=== PATIENT | male | born 1940 | race African-American/Black ===

== ENCOUNTER 2018-01-01 15:08 | Outpatient (CLI) | payer MEDICARE, BC | END 2018-01-01 15:09 | disposition home or self-care (01) | LOC: BICRAD 15:08 | PROVIDERS: ATTEND Physician Assistant | DX: J90 Pleural effusion, not elsewhere classified (principal) | CPT/HCPCS: 71046 ==

== ENCOUNTER 2018-10-18 09:54 | Outpatient (CLI) | payer MEDICARE, BC ==
--- NOTE | 2018-10-18 11:03 | RAD ---
THREE VIEWS LEFT WRIST: History: Fall one week ago with left wrist pain. FINDINGS: Three views of the left wrist shows no evidence of acute fracture or dislocation. No soft tissue swel ling is seen. No degenerative changes are present. IMPRESSION: Unremarkable exam. POS: [facility]
--- NOTE | 2018-10-18 11:05 | RAD ---
TWO VIEWS LEFT FOREARM: Comparison: None. History: Fall one week ago with left arm pain. FINDINGS: Two views of the left forearm shows no evidence of acute fracture or dislocation. No soft tissue swel ling is seen. No radiopaque foreign body is seen. IMPRESSION: Unremarkable exam. POS: [facility]
--- NOTE | 2018-10-18 11:06 | RAD ---
THREE VIEWS LEFT HAND: Comparison: None. History: Fall one week ago with left hand pain. FINDINGS: Three views of the left hand shows no evidence of acute fracture or dislocation. Moderate diffuse sof t tissue swelling is seen. Degenerative changes are seen in the interphalangeal joints of the fingers . 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 POS: [facility]
== END 2018-10-18 09:55 | disposition home or self-care (01) ==
LOC: BICRAD 09:54
PROVIDERS: ATTEND Internal Medicine
DX: M79.642 Pain in left hand (principal); M19.042 Primary osteoarthritis, left hand; M25.442 Effusion, left hand; Z91.81 History of falling

== ENCOUNTER 2018-11-08 11:11 | Day surgery (SDC) | payer MEDICARE, BC ==
[2018-11-07 16:36] VITALS: BMI 25.1
[2018-11-08] MEDS ORDERED: PROPOFOL 200 MG/20 ML VIAL ONE (17:01)
[2018-11-08] MEDS ORDERED: Lidocaine 1% PF 5 ML VIAL ONE (17:01)
--- NOTE | 2018-11-08 20:37 | OP ---
DATE OF PROCEDURE: 11/08/2018 PRIMARY CARE PHYSICIAN: Ping Poe MD PROCEDURE: Colonoscopy with snare polypectomy and biopsy. PRE-PROCEDURE DIAGNOSES: 1. Colon screening. 2. History of pacemaker insertion. 3. History of ureteral cancer and non-Hodgkin's lymphoma. POSTPROCEDURE DIAGNOSES: 1. Exam to cecum; suboptimal bowel preparation. 2. Diffusely tortuous colon. 3. Suti-co-ktkivqog sigmoid diverticulosis. 4. 5 to 6 mm sessile polyp in the distal transverse colon, removed with cold snare technique. 5. Small residual transverse colon polyp, removed by biopsy forceps from the polypectomy site. 6. Gzodu-no-ufpzwcvg internal hemorrhoids, not actively bleeding. 7. Otherwise normal colonoscopy. DESCRIPTION OF PROCEDURE: Written informed consent was obtained. The patient was brought to the endoscopy suite. Total intravenous anesthesia was provided by Dr. Galileo Gambino and associates. The patient was placed in the left lateral decubitus position. A digital rectal exam was performed that was unremarkable. A Pentax video colonoscope was inserted through the anal canal and advanced under direct visualization to the cecum. Position in the cecum was verified by identification of the cecal strap and ileocecal valve. The quality of the bowel preparation was unsatisfactory. Thick liquid stool with multiple fecal debris was noted throughout the colon and pooled in multiple areas of the colon. Using a copious lavage with sterile water, fair clearance was achieved with improved visualization. Frequent diverticular orifices were noted in the sigmoid colon. There was no evidence of infection or hemorrhage from the diverticula. A sessile polyp in the transverse colon was removed by cold snare technique. Due to its somewhat difficult location, the small portion of the polyp remained and had to be removed with cold biopsy forceps from the polypectomy site. No other synchronous polyps were identified. The retroflex exam in the rectum demonstrated small edematous internal hemorrhoids that were not actively bleeding. The colon was decompressed as the colonoscope was removed from the patient. He was transferred to the day stay surgery area for postprocedure monitoring. There were no immediate complications. RECOMMENDATIONS: 1. Await pathology results. 2. Ask the patient to call me in one week for pathology results. 3. Pending pathology results, may recommend repeating a colonoscopy in 5 years. 4. High-fiber, low-fat diet. 5. Follow up in GI Clinic as needed. Job ID: [id number]
== END 2018-11-08 16:00 | disposition home or self-care (01) ==
LOC: SDC 11:11
PROVIDERS: ATTEND Internal Medicine Gastroenterology
PROC: 0DBL8ZX Excision of Transverse Colon, Via Natural or Artificial Opening Endoscopic, Diagnostic (ICD-10-PCS; principal; 2018-11-08)
DX: Z12.11 Encounter for screening for malignant neoplasm of colon (principal); D12.3 Benign neoplasm of transverse colon; K57.31 Diverticulosis of large intestine without perforation or abscess with bleeding; K64.8 Other hemorrhoids; K63.89 Other specified diseases of intestine; I48.91 Unspecified atrial fibrillation; E78.00 Pure hypercholesterolemia, unspecified; D64.9 Anemia, unspecified; K59.00 Constipation, unspecified; Z86.010 Personal history of colon polyps; Z85.528 Personal history of other malignant neoplasm of kidney; Z85.72 Personal history of non-Hodgkin lymphomas; Z80.0 Family history of malignant neoplasm of digestive organs; Z79.01 Long term (current) use of anticoagulants; Z79.899 Other long term (current) drug therapy; Z90.5 Acquired absence of kidney; Z95.810 Presence of automatic (implantable) cardiac defibrillator
CPT/HCPCS: 88305; J2001; J2704

== ENCOUNTER 2019-11-08 21:22 | Inpatient (IN) | payer MEDICARE, BC ==
[2019-11-08] MEDS ORDERED: Morphine 4 MG/ML VIAL ONE ×2 (21:52→22:47)
[2019-11-08] MEDS ORDERED: Ondansetron PF 4 MG/2 ML Vial ONE ×2 (21:52→22:47)
[2019-11-08 22:40] LABS: Hemoglobin 10.7 g/dL (14.0-18.0); Mean Corpuscular HGB CONC 31.7 g/dL (32.0-36.0); Mean Corpuscular Hemoglobin 33.2 pg (27.0-31.0); RBC Distribution Width 12.2 % (11.5-14.5); Red Blood Cell (RBC) Count 3.21 mill/uL (4.70-6.10)
[2019-11-08 22:44] LABS: #Basophils 0.1 thou/uL (0.0-0.2); #Eosinphils 0.1 thou/uL (0.0-0.7); #Lymphocytes 0.6 thou/uL (1.20-3.40); #Monocytes 0.9 thou/uL (0.11-0.59); #Neutrophils 10.3 thou/uL (1.40-6.50); %Basophils 0.4 % (0.0-1.0); %Eosinophils 1.2 % (0.0-10.0); %Monocytes 7.2 % (0.0-10.0); %Neutrophils 86.2 % (42.0-75.0); MDiff Complete? YES; Macrocytosis SLIGHT = 6-15 cells (100X) (0-5/hpf); Mean Platelet Volume 7.6 fL (7.4-10.4); Platelet Count 234 thou/uL (130-400)
[2019-11-08 22:50] LABS: ALT (SGPT) 21 U/L (8-55); AST (SGOT) 28 U/L (5-34); Albumin 3.9 g/dL (3.4-4.8); Alkaline Phosphatase 89 U/L (40-110); Anion Gap 18 mmol/L (10-20); BUN (Urea Nitrogen) 42 mg/dL (8.4-25.7); Bilirubin, Total 0.4 mg/dL (0.2-1.2); Calc. Creatinine Clearance 0 mL/min (70-130); Calcium 9.1 mg/dL (7.8-10.44); Carbon Dioxide 18 mmol/L (23-31); Chloride 106 mmol/L (98-107); Estimated GFR-MDRD 28; Globulin 3.5 g/dL (2.4-3.5); Glucose 143 mg/dL (83-110); Lipase 43 U/L (8-78); Potassium 5.2 mmol/L (3.5-5.1); Protein, Total 7.4 g/dL (5.8-8.1); Sodium 137 mmol/L (136-145)
--- NOTE | 2019-11-08 23:33 | CT ---
CT OF THE ABDOMEN AND PELVIS WITHOUT IV CONTRAST INDICATION: Abdominal Pain COMPARISON: CT of the chest, abdomen and pelvis without contrast dated August 26, 2016 FINDINGS: This examination is limited for the evaluation of solid organs and vascular structures due to the lac k of intravenous contrast. ABDOMEN: Lung bases: There is a persistent moderate left and small right pleural effusion. There is atelectasi s within the lingula and left lower lobe. Liver: No focal lesion. Gallbladder: Surgically absent Pancreas: Normal. Adrenal glands: Normal. Spleen: Normal. 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 There is been interval development of mode rate right hydronephrosis and right-sided hydroureter that transitions at the right ureter-neobladder anastomosis within the lower right mid abdomen. The neobladder exits via a right lo wer quadrant stoma. Vasculature: There are moderate vascular calcifications seen involving the visualized vasculature. 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 Lymph nodes:No lymphadenopathy. Free fluid in abdomen:No free fluid is evident. PELVIS: Small and large bowel: There is an anterior midline abdominal wall hernia containing a nonobstructed loop of sigmoid colon. There are scattered colonic diverticulosis. There is a small amount anastomosis seen, left of midline in the mid abdomen. Appendix:Surgically absent Bladder: Surgically absent Rectal and perirectal soft tissues:Normal. Reproductive structures: Surgically absent Free fluid in pelvis: No free fluid is evident. Lymphadenopathy pelvis: No lymphadenopathy is evident. Osseous structures: No acute osseous abnormality. No destructive osteolytic or osteoblastic lesion i s identified. There is scattered degenerative and osteoarthritic changes. There is stable superior endplate compression deformity of L1. There is been interval compression abnormality of L2 with assoc iated vertebral plasty change. Soft tissues:Normal. IMPRESSION: 1. Interval development of moderate right hydronephrosis and hydroureter that transitions at the uret eral-neobladder anastomosis within the lower right mid abdomen. The neobladder is decompressed and exits via a right lower quadrant stoma. 2. New anterior midline upper abdominal wall hernia containing unobstructed loop of sigmoid colon. 3. 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 4. Stable post procedural change of a cholecystectomy, appendectomy, cholecystectomy and left nephrec alisa. 5. Interval development of a compression abnormality with vertebroplasty change at L2. Stable elaina delmar abnormality at L1.
[2019-11-09] MEDS ORDERED: Morphine 4 MG/ML VIAL SLOW IVP PRN ×2 (01:06→01:07)
[2019-11-09] MEDS ORDERED: Ondansetron ODT 4 MG TAB SL PRN (01:07)
[2019-11-09] MEDS ORDERED: Acetaminophen 325 MG TAB PO PRN (01:07)
[2019-11-09] MEDS ORDERED: Ondansetron PF 4 MG/2 ML Vial IVP PRN (01:07)
[2019-11-09] MEDS ORDERED: HYDROcodone/Acetaminophen 5/325 mg Tablet PO PRN ×2 (01:07)
[2019-11-09 01:18] LABS: Bacteria/HPF 4+ HPF (None Seen); Bilirubin Negative (Negative); Blood, Urine Trace (Negative); Clarity Extra Turbid (Clear); Glucose, Urine (Dipstick) Normal (Negative); Leukocyte 250 Leu/uL (Negative); Nitrite Negative (Negative); Protein, Urine (Dipstick) 30 mg/dL (Neg-Trace); Squamous Epithelial 0-3 HPF (0-3); WBC/HPF 21-50 HPF (0-3)
[2019-11-09 03:38] VITALS: BMI 23.8
[2019-11-09] MEDS ORDERED: Prevnar 13-Val Conj/PF 0.5 ML SYRINGE IM ONE (09:00)
[2019-11-09] MEDS ORDERED: FLU VACC TS2019-20(65YR UP)/PF 180 MCG/0.5 ML SYRINGE IM ONE (09:00)
[2019-11-09 15:39] VITALS: BP 121/71; TEMP 98.6
--- NOTE | 2019-11-09 16:59 | CON ---
DATE OF CONSULTATION: 11/09/2019 REASON FOR CONSULTATION: Incarcerated ventral hernia. HISTORY OF PRESENT ILLNESS: This is an 79-year-old male with a history of ureter cancer, who is status post radical nephroureterectomy with creation of neobladder and urinary stoma. He presented to the emergency department with abdominal pain and complaints of a firm mass in the supraumbilical area. He denies any nausea, vomiting, obstipation, or constipation. He was placed on observation overnight. The following morning, he was feeling much better. The mass had resolved, as had his abdominal pain. PAST MEDICAL HISTORY: 1. Ureter cancer. 2. Atrial fibrillation. 3. Congestive heart failure. 4. GERD. PAST SURGICAL HISTORY: 1. Radical nephroureterectomy with neobladder and urinary stoma. 2. Appendectomy. 3. Left Achilles tendon repair. 4. Cholecystectomy. 5. Back surgery. 6. Left knee surgery. SOCIAL HISTORY: Endorses occasional alcohol usage. Denies tobacco or drug use. ALLERGIES: NO KNOWN DRUG ALLERGIES. FAMILY HISTORY: Noncontributory. REVIEW OF SYSTEMS: A 12-point review of systems was obtained and is negative except as stated in the history of present illness. PHYSICAL EXAMINATION: VITAL SIGNS: Temperature 98.2, heart rate 75, respiratory rate 16, and blood pressure 125/71. GENERAL: Alert and oriented, no acute distress. HEENT: Normocephalic. No jaundice or icterus. CHEST: Clear to auscultation. CARDIOVASCULAR: Irregularly irregular with pacemaker in place. ABDOMEN: Soft, nondistended, nontender. 2 cm reducible incisional hernia in the supraumbilical position. Urinary ostomy viable with urine output. MUSCULOSKELETAL: Slightly reduced bulk and normal tone. INTEGUMENT: No rashes or lesions. NEURO: No focal deficits. LABORATORY ANALYSIS: Laboratory analysis reviewed and demonstrates a mild leukocytosis of 12. Also demonstrates hyperkalemia at 5.2 and elevated creatinine of 2.2. These are chronic. His urinalysis is grossly positive likely due to his urinary ostomy. IMAGING STUDIES: CT of the abdomen and pelvis demonstrates interval development of right hydronephrosis and hydroureter as well as a midline upper abdominal wall hernia containing unobstructed loop of sigmoid colon. 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 Stable postprocedural changes of cholecystectomy, appendectomy, and left nephrectomy. ASSESSMENT: An 79-year-old male with a history of ureter cancer and radical left nephroureterectomy with neobladder and urinary ostomy, now with incisional hernia. No evidence of obstruction, strangulation, or incarceration at this time. PLAN: Continue care by Medicine Service. No surgical intervention indicated for the hernia at this time. The patient was counseled that he should discuss this incisional hernia with his urologist at his next followup at [facility]. We will follow peripherally. Please call for any further questions. Job ID: [id number] MTDD
--- NOTE | 2019-11-10 06:46 | HP ---
HISTORY OF PRESENT ILLNESS: Mr. Dhillon is an 79-year-old male with a medical history of ureter cancer, status post radical nephroureterectomy with creation of neobladder and urinary stoma, who presented for abdominal pain at the site of his abdominal hernia. The patient claims that he has had this pain for at least a year ever since his surgery, but over the past 2 months, the pain has become worse especially when he has episodes of constipation. The patient states that he takes his docusate when he has constipation, but still has episodes of straining, during which he has increased abdominal pain at the site of the hernia. The patient also endorses a single episode of vomiting the day prior to presentation. In the ED, the patient was found to be in pain and there was a concern of bowel obstruction or an incarcerated hernia, so he was admitted to the surgical floor. REVIEW OF SYSTEMS: CONSTITUTIONAL: Negative for fever or chills. EYES: Negative for eye pain, discharge, or vision change. ENT: Negative for rhinorrhea or sore throat. CARDIOVASCULAR: Negative for pain or palpitations. RESPIRATORY: Negative for cough, sputum production, or shortness of breath. GASTROINTESTINAL: Positive for abdominal pain and bulging of the abdominal hernia, single episode of low volume vomiting. GENITOURINARY: Negative for dysuria, hematuria, or urinary frequency. MUSCULOSKELETAL: Negative for falls, back pain, joint pain, or neck pain. SKIN: Negative for rashes or lesions. NEUROLOGIC: Negative for headache or focal weakness. PAST MEDICAL HISTORY: 1. Atrial fibrillation. 2. Bladder cancer. 3. Ureter cancer. 4. Abdominal hernia. 5. CHF. PAST SURGICAL HISTORY: 1. Pacemaker, left upper chest. 2. Nephrectomy. 3. Ureterectomy. 4. Cholecystectomy. 5. Appendectomy. 6. Achillis tendon repair. SOCIAL HISTORY: No heavy alcohol intake. No recreational drug use. Former smoker, stopped in 2013. ALLERGIES: NO KNOWN DRUG ALLERGIES. MEDICATIONS: 1. Carvedilol. 2. Fluoxetine. 3. Calcitriol. 4. Eliquis. 5. Sodium bicarbonate. PHYSICAL EXAMINATION: VITAL SIGNS: Unremarkable except for tachypnea at around 18 breaths per minute. CONSTITUTIONAL: Afebrile. No apparent distress. Alert and oriented x3. HEENT: Head exam; atraumatic, normocephalic. Eyes exam; no conjunctival pallor, swelling, or erythema. No eye redness. ENT; no lymphadenopathy. CARDIAC: Regular rate and rhythm. No murmurs or gallops. RESPIRATORY: Clear to auscultation bilaterally. No rales or rhonchi. ABDOMEN: Left periumbilical hernia about 5 cm in diameter. No erythema. Easily reducible. No tenderness on palpation. Normal bowel sounds. No distention. No guarding. EXTREMITIES: Right lower pitting edema, which per the patient is chronic; left lower extremity has no edema. NEUROLOGIC: Cranial nerves intact. No focal weakness. PSYCHIATRIC: Alert and oriented x3. Proper mood and affect. LABORATORY AND DIAGNOSTIC DATA: Labs and imaging were reviewed. ASSESSMENT AND PLAN: Mr. Dhillon is an 79-year-old male, who presents with chronic abdominal hernia pain. 1. Abdominal hernia. The patient has had chronic hernia pain since surgery. He was evaluated by Surgery, who determined there was no indication for surgical intervention considering the hernia is easily reducible and the pain has resolved. The patient was tolerating oral intake with no additional episodes of nausea or vomiting. We will continue to monitor the patient. 2. Positive urinalysis. The patient's urine sample was taken from the ostomy bag. Urinalysis is positive, but likely due to colonization of the urinary bag rather than an infection considering lack of constitutive symptoms or costovertebral tenderness. No indication for treatment. 3. Atrial fibrillation. We will restart the patient's home medications of Coreg and apixaban. 4. Congestive heart failure. The patient is currently euvolemic other than his right lower extremity, which is inconsistent with heart failure considering it is not bilateral. We will attempt to obtain records regarding his congestive heart failure. Meanwhile, we will continue Coreg. DISPOSITION/PROPHYLAXIS: Code status, full code. DVT prophylaxis, the patient is on Eliquis for atrial fibrillation. GI prophylaxis, no indication. Job ID: [id number]
--- NOTE | 2019-11-10 15:03 | DIS ---
DATE OF ADMISSION: 11/09/2019 DATE OF DISCHARGE: 11/09/2019 HISTORY OF PRESENT ILLNESS: Mr. Dhillon is an 79-year-old male with a medical history of ureter cancer, status post radical nephroureterectomy with creation of neobladder and urinary stoma, who presented with abdominal pain at the site of his chronic abdominal hernia. The patient has been having chronic symptoms ever since surgery that worsened over the past couple of months. In the ED, there was concern regarding possible strangulation of the hernia, however, after surgical evaluation and evaluation by myself, the patient was diagnosed with a reducible nonischemic nonstrangulated hernia. The patient was supported throughout the day and significantly improved. He was discharged home without pain, hemodynamically stable, and following education regarding a bowel regimen that will prevent him from having episodes of constipation associated hernia pain. PHYSICAL EXAMINATION: VITAL SIGNS: On the day of discharge were unremarkable. GENERAL: The patient was in no apparent distress. Alert and oriented x3. CARDIAC: Regular rate and rhythm. No murmurs. No gallops. RESPIRATORY: Clear to auscultation bilaterally. No rales or rhonchi. ABDOMEN: Left periumbilical hernia about 5 cm in diameter, easily reducible. No overlying erythema. No tenderness to palpation. Normal bowel sounds. EXTREMITIES: Right lower extremity pitting edema, which is chronic per the patient. Left lower extremity has no edema. NEUROLOGIC: Cranial nerves intact. No focal weakness. PSYCHIATRIC: Alert and oriented x3. Proper mood and affect. ASSESSMENT AND PLAN: Mr. Dhillon is an 79-year-old male, who presented with chronic abdominal hernia pain. 1. Abdominal hernia. Easily reducible and no signs of strangulation. Surgery evaluated the patient and determined there was no indication for urgent surgical intervention. The patient significantly improved after being supported and after receiving supportive care, and was discharged without pain. He was extensively educated regarding a bowel regimen that would prevent hard stools and associated abdominal pain as well as straining of the abdomen. 2. Positive urinalysis. The patient's urine sample was taken from the ostomy bag. Likely colonization in the absence of associated symptoms. No indication for treatment. 3. Atrial fibrillation. The patient has been well controlled on his home medications of Coreg. Also continue the patient's apixaban. 4. Congestive heart failure. Per the patient has been diagnosed, however, no records available and the patient has been euvolemic during inpatient stay. We will continue Coreg and requests the patient to follow up with his group underwriter. Job ID: [id number]
--- NOTE | 2019-11-12 00:40 | PQF ---
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 Clinical indicators are provided on the bottom of this form for your review Can you please further clarify if Hydronephrosis is ruled in or ruled out? Hydronephrosis [ x ] Ruled in diagnosis [ x ] Continue to treat [ ] Resolved [ ] Ruled out diagnosis [ ] Cannot rule out diagnosis [ ] Other diagnosis [ ] Unable to determine In addition, please specify: Present on Admission (POA): [ ] Yes [ ] No [ ] Unable to determine For continuity of documentation, please document condition throughout progress notes and discharge summary. Thank You. CLINICAL INDICATORS - SIGNS / SYMPTOMS / LABS Consult Pg.2- CT abdomen and pelvis demonstrates interval development of right hydronephrosis and hydroureter Consult pg.2- His urinalysis is grossly positive likely due to his urinary ostomy ED provider- Hydronephrosis H and P pg.1- presented with abdominal pain RISK FACTORS s/p radical nephroureterectomy Hx of ureter cancer- H and P pg.1 Abdominal hernia- H and P pg.[address] Abdomen/Pelvis 11/[address] Santacruz IV fluids- DEC IV antibiotics- DEC (This form is maintained as a part of the permanent medical record) 2014 [employer]. All Rights Reserved [email or web address]
== END 2019-11-09 15:50 | disposition home or self-care (01) | DRG 394 ==
LOC: ERS 21:22 → SURG B 11-09 00:04
PROVIDERS: ADMIT Internal Medicine; ATTEND Internal Medicine
DX: K45.8 Other specified abdominal hernia without obstruction or gangrene (principal); N13.30 Unspecified hydronephrosis; I48.91 Unspecified atrial fibrillation; I50.9 Heart failure, unspecified; K21.9 Gastro-esophageal reflux disease without esophagitis; N18.9 Chronic kidney disease, unspecified; E87.5 Hyperkalemia; Z85.54 Personal history of malignant neoplasm of ureter; Z95.0 Presence of cardiac pacemaker; Z90.49 Acquired absence of other specified parts of digestive tract; Z79.01 Long term (current) use of anticoagulants; Z79.899 Other long term (current) drug therapy; Z87.891 Personal history of nicotine dependence; Z85.528 Personal history of other malignant neoplasm of kidney; Z85.51 Personal history of malignant neoplasm of bladder; Z93.6 Other artificial openings of urinary tract status
CPT/HCPCS: 74176; 80053; 81003; 81015; 83690; 85025; 96361; 96374; 96375; 96376; J2270; J2405

== ENCOUNTER 2020-04-17 10:21 | Inpatient (IN) | payer MEDICARE, BC, OTHER ==
[2020-04-17] MEDS ORDERED: Fentanyl 100 MCG/2 ML VIAL ONE (12:02)
--- NOTE | 2020-04-17 12:07 | CT ---
EXAM: Brain CT scan Without contrast: HISTORY: Injury from trauma COMPARISON: None FINDINGS: Some motion artifact degrading image quality. Atrophy and chronic white matter ischemic change. No focal mass or midline shift. No intra or extra-axial hemorrhage. The visualized sinuses and mastoids are clear of acute process. IMPRESSION: No mass or bleed or other significant acute intracranial process.
--- NOTE | 2020-04-17 12:09 | RAD ---
PORTABLE CHEST 1 VIEW: Date: 04/17/2020 Time: 1140 hours HISTORY: Altered mental status. FINDINGS/IMPRESSION: The heart size is borderline. A left-sided pacemaker device is present. There is pulmonary vascular c ongestion with a left pleural effusion and adjacent atelectatic change. No pneumothoraces are seen. T here are degenerative changes in the spine. POS: [facility]
--- NOTE | 2020-04-17 12:19 | CT ---
EXAM: CT Lumbar Spine WO Con DATE: 04/17/2020 11:28 AM INDICATION: Multiple falls and back pain COMPARISON: CT the abdomen and pelvis with out contrast dated November 08, 2019. FINDING: There is been interval development of a mild superior endplate compression fracture of T12. Superior endplate compression abnormalities of L1 and L2 appear similar. Vertebroplasty changes L2 similar appearing. There is diffuse osteopenia. There is moderate multilevel spondylosis. There are b ilateral pleural effusions and a stable chronic right-sided hydronephrosis. There is aneurysmal dilatation left common iliac artery measuring up to 2.4 cm just slightly more pronounced than on the prior examination, possibly related to plane of imaging. IMPRESSION: 1. Acute superior endplate compression fracture of T12 with approximately 10% loss of height. 2. Stable chronic L1 and L2 vertebral body compression abnormalities with stable vertebral plasty laurita nge at L2. 3. Bilateral pleural effusions and chronic right-sided hydronephrosis. 3. 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
[2020-04-17 12:33] LABS: Bacteria/HPF 3+ HPF (None Seen); Bilirubin Negative (Negative); Blood, Urine Negative (Negative); Clarity Clear (Clear); Glucose, Urine (Dipstick) Normal (Negative); Ketone, Urine Negative (Negative); Leukocyte 25 Leu/uL (Negative); Nitrite Negative (Negative); Protein, Urine (Dipstick) 10 mg/dL (Neg-Trace); RBC/HPF 0-3 HPF (0-3); Specific Gravity, Urine 1.019 (1.002-1.036); Squamous Epithelial None Seen HPF (0-3); Urobilinogen Normal mg/dL (Less than 2); pH, Urine 5.5 (5.0-9.0)
[2020-04-17 12:38] LABS: #Basophils 0.1 thou/uL (0.0-0.2); #Eosinphils 0.1 thou/uL (0.0-0.7); #Lymphocytes 0.9 thou/uL (1.20-3.40); #Monocytes 0.5 thou/uL (0.11-0.59); #Neutrophils 14.2 thou/uL (1.40-6.50); %Basophils 0.7 % (0.0-1.0); %Eosinophils 0.3 % (0.0-10.0); %Lymphocytes 5.9 % (21.0-51.0); %Monocytes 3.1 % (0.0-10.0); Hemoglobin 9.2 g/dL (14.0-18.0); Mean Corpuscular HGB CONC 28.7 g/dL (32.0-36.0); Mean Corpuscular Hemoglobin 31.3 pg (27.0-31.0); Mean Platelet Volume 9.8 fL (7.4-10.4); Platelet Count 144 thou/uL (130-400); RBC Distribution Width 12.7 % (11.5-14.5); Red Blood Cell (RBC) Count 2.94 mill/uL (4.70-6.10); White Blood Cell (WBC) Count 15.8 thou/uL (4.8-10.8)
[2020-04-17 12:56] LABS: ALT (SGPT) 26 U/L (8-55); AST (SGOT) 35 U/L (5-34); Albumin 3.3 g/dL (3.4-4.8); Alkaline Phosphatase 132 U/L (40-110); Anion Gap 17 mmol/L (10-20); BUN (Urea Nitrogen) 93 mg/dL (8.4-25.7); Bilirubin, Total 0.4 mg/dL (0.2-1.2); CK (CPK) 49 U/L (30-200); Calc. Creatinine Clearance 0 mL/min (70-130); Calcium 9.1 mg/dL (7.8-10.44); Carbon Dioxide 17 mmol/L (23-31); Chloride 97 mmol/L (98-107); Estimated GFR-MDRD 14; Globulin 3.2 g/dL (2.4-3.5); Glucose 108 mg/dL (83-110); Lipase 14 U/L (8-78); Potassium 3.7 mmol/L (3.5-5.1); Protein, Total 6.5 g/dL (5.8-8.1); Sodium 127 mmol/L (136-145)
[2020-04-17] MEDS ORDERED: Sodium Chloride 0.9% 100 ML ONE (13:07)
[2020-04-17] MEDS ORDERED: cefTRIAXone\\ROCEPHIN 1 GM VIAL ONE (13:07)
[2020-04-17 13:08] LABS: MDiff Complete? YES; Macrocytosis SLIGHT = 6-15 cells (100X) (0-5/hpf); Platelet Morphology Comment Appears Adequate; Polychromasia SLIGHT = 2-3 cells (100X) (0-2/hpf); Target Cells SLIGHT = 2-5 cells (100X) (0-1/hpf); Tear Drops SLIGHT = 2-5 cells (100X) (0-1/hpf)
[2020-04-17 14:46] LABS: SARS-CoV-2 NAA Rapid Test Not Detected (NotDetected)
[2020-04-17] MEDS ORDERED: Guaifenesin DM 100-10/5 ML UDCUP PO PRN ×2 (15:07→16:19)
[2020-04-17] MEDS ORDERED: Calcium Carbonate 500 MG ChewTAB PO PRN ×2 (15:07→16:19)
[2020-04-17] MEDS ORDERED: Bisacodyl 10 MG SUPP PR PRN ×2 (15:07→16:19)
[2020-04-17] MEDS ORDERED: Acetaminophen 325 MG TAB PO PRN (15:07)
[2020-04-17] MEDS ORDERED: Ondansetron PF 4 MG/2 ML Vial IVP PRN ×2 (15:07→16:19)
[2020-04-17] MEDS ORDERED: Dextrose 5 % And 0.9 % NaCl 1,000 ML IV SCH (15:15)
[2020-04-17] MEDS ORDERED: cefTRIAXone\\ROCEPHIN 1 GM in Sodium Chloride 0.9% 100 ML IVPB SCH (15:15)
--- NOTE | 2020-04-17 16:22 | HP ---
REASON FOR ADMISSION: Acute kidney injury, metabolic acidosis, severe dehydration, recurrent falls, T12 compression fracture, UTI, metabolic acidosis. HISTORY OF PRESENTING ILLNESS: Please note majority of this history is obtained by talking to the patient's daughter at bedside as the patient is not fully oriented. He has been falling multiple times at home. One week back, the patient fell with hitting his head backwards. He was given prescriptions for Ultram and has seen Dr. Jensen. He also has history of ureteral cancer and follows up at [facility]. He has been off chemo and immunotherapy from last 4 years now. He has not been eating or drinking for a week now. He is also taking Ultram for pain due to recent fall with back pain. He has had chronic back pain, which has exacerbated with the fall. Last bowel movement was 3 days back. He is also not taking his medications as prescribed for last 1 week or so now. He lives with his . The daughter who lives in [place] came to check on him as he has not been feeling well for almost a week now and finally brought him to emergency room here. Currently, he is lethargic, but has no complaints of shortness of breath or palpitation. No cough or expectoration. No history of coronavirus exposure as such. He has had a rapid COVID-19 PCR done in the ER, which is negative. 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 He has had this sometime in 2016. History of chronic atrial fibrillation; tobacco abuse, quit in 2014; osteoarthritis; tubular adenoma on prior colonoscopies; early COPD; prior radiation and chemotherapy for the ureteral cancer in the past. Left arthroscopic meniscal tear surgery by Dr. Morillo. Achilles tendon rupture repair on the left side by Dr. Morillo. Laparoscopic cholecystectomy, appendectomy, ruptured disk repair in the lumbar spine 10 years back. 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 CURRENT MEDICATIONS: The patient was started on: 1. Bactrim one tablet twice daily. 2. Flagyl 3 times daily for urinary tract infection a week back when he had shaking chills. 3. He is on calcitriol 0.25 mcg p.o. daily. 4. Eliquis 2.5 mg twice daily. 5. Carvedilol 6.25 mg p.o. twice daily. 6. Colace 100 mg p.o. daily. 7. Fluoxetine 10 mg daily. 8. Melatonin 5 mg p.o. at bedtime. PERSONAL HISTORY: Quit heavy smoking in 2014. Does not abuse alcohol or drugs. Lives with his . 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 Mother at the age of 59. Father at the age of 82. Mother had unknown cancer. Father had dementia. CODE STATUS: Full. REVIEW OF SYSTEMS: Cannot be accurately obtained as the patient is not fully oriented. PHYSICAL EXAMINATION: GENERAL: The patient is an 80-year-old male, who is currently not in any acute distress. VITAL SIGNS: Blood pressure 106/60, pulse 72 per minute, respiratory rate 16 per minute, temperature 97.7 degrees Fahrenheit, saturating 92% on room air. NECK: Supple. No elevated JVD. HEENT: Eyes; extraocular muscles intact. Pupils reacting to light. Oral cavity, mucous membranes are dry. No exudates or congestion. CARDIOVASCULAR SYSTEM: S1 and S2 heard. Regular rhythm. RESPIRATORY SYSTEM: Air entry 1+ bilateral. No rales or rhonchi. There is decreased air entry on the infrascapular area. ABDOMEN: Soft. Bowel sounds heard. No tenderness, rigidity, or guarding. Has a ureterostomy with high-colored urine on the anterior abdominal wall in the right lower quadrant. No rigidity or guarding. EXTREMITIES: No peripheral edema or calf tenderness. VASCULAR SYSTEM: Peripheral pulses 1+ bilateral. No ischemic ulcerations or gangrene. CENTRAL NERVOUS SYSTEM: No gross focal motor deficits noted. The patient is lethargic, but is not in any acute distress and is not oriented. LABORATORY DATA: Chest x-ray done shows mild cardiomegaly, pulmonary vascular congestion, there is left-sided pleural effusion seen. CT brain without contrast done showed no mass or bleed. No acute intracranial process. CT lumbar spine without contrast done showed acute superior endplate compression fracture of T12 with approximately 10% loss of height, chronic L1-L2 vertebral body compression abnormalities with stable vertebroplasty change at L2. 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 White count of 15, H and H of 9 and 32, platelet count is 144, MCV is 109 with 90% neutrophils. Sodium 127, serum bicarb 17, BUN 93, creatinine 4.1, AST 35, ALT 26, alkaline phosphatase 132, albumin 3.3. Troponin I of 0.05, CK-MB 2.0, CK level is 49. BNP 1097. Lipase is 14. UA shows 3+ bacteria. Rapid COVID-19 PCR test done in the ER is negative. CLINICAL IMPRESSION AND PLAN: The patient will be admitted to medical floor for acute kidney injury with metabolic acidosis, acute metabolic encephalopathy, urinary tract infection. He will be gently hydrated with D5 normal saline. I have discussed his findings with Dr. Schwartz. The patient has solitary kidney in view of prior nephrectomy on the other side. We will obtain urine and blood cultures. He will be placed on ceftriaxone for now. We will continue calcitriol, carvedilol, Colace, and Senokot daily. We will continue home dose of Prozac as well. I have given complete updates to the patient's daughter who was here at bedside in the ER. His overall prognosis is guarded. The patient also has elevated BNP and we will try to obtain a current echo with 2D Doppler for left ventricular function. I do not have a transthoracic echo report on [facility] and we will obtain the same to assess for left ventricular function. His overall prognosis is guarded. Job ID: [id number]
[2020-04-17] MEDS: Dextrose 5 % And 0.9 % NaCl 1,000 ML IV SCH (16:39)
[2020-04-17] MEDS: EPOETIN ALFA-EPBX (ESRD) 4,000 UNIT/ML VIAL SC SCH (17:59)
[2020-04-17] MEDS: Ferrous Sulfate 325 MG TAB PO SCH (18:00)
[2020-04-17] MEDS: Carvedilol 6.25 MG TAB PO SCH (20:24)
[2020-04-17] MEDS: Sodium Bicarbonate Tab 325 MG TAB PO SCH (20:26)
[2020-04-17] MEDS: Senokot S 8.6-50 MG TAB PO SCH (20:27)
[2020-04-17] MEDS: Heparin 5,000 UNITS/ML VIAL SC SCH (20:27)
[2020-04-17] MEDS ORDERED: Carvedilol 6.25 MG TAB PO SCH (21:00)
[2020-04-17] MEDS ORDERED: Heparin 5,000 UNITS/ML VIAL SC SCH (21:00)
[2020-04-17] MEDS ORDERED: Senokot S 8.6-50 MG TAB PO SCH (21:00)
--- NOTE | 2020-04-17 21:03 | CON ---
DATE OF CONSULTATION: HISTORY OF PRESENT ILLNESS: Mr. Dhillon is an 80-year-old white male with known history of chronic renal failure, who was admitted for an acute kidney injury-presumptive hemodynamically mediated dysfunction. The patient was initially seen due to frequent falls. Imaging of the spine showed a T12 compression fracture. He has a finding also of chronic right-sided hydronephrosis. The hydronephrosis is relatively unchanged when compared to last October. The patient previously has been instructed to follow up with MD Garcia with regard to his hydronephrosis since he has an underlying urological malignancy. We are being consulted for his acute kidney injury as well as for management of his chronic renal failure. The patient has had frequent falls and has history of decreased p.o. intake. IV hydration has been initiated as per recommendation by the Renal Service. REVIEW OF SYSTEMS: Decreased appetite. Decreased energy level. Positive for frequent falls. No gross hematuria. No fever or chills. No syncopal episode. No chest pain or shortness of breath. Appetite and energy level are decreased. Occasional joint pains. Increased forgetfulness. CURRENT MEDICATIONS: The patient is currently on, 1. D5 normal saline 75 mL/h. 2. Calcitriol 0.25 mcg tablet daily. 3. Dulcolax 10 mg daily p.r.n. 4. Calcium carbonate 1000 mg p.o. q.4 p.r.n. 5. Carvedilol 6.25 mg p.o. b.i.d. 6. Prozac 10 mg daily. 7. Heparin 5000 units subcu t.i.d. 8. Zofran 4 mg IV q.6 p.r.n. 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 The patient has chronic atrial fibrillation, history of left ureteral cancer. Chronic dementia. PAST SURGICAL HISTORY: Includes status post colonoscopy with removal of polyp, status post cholecystectomy, status post cystoscopy, status post left nephrectomy with ureterectomy, status post cystectomy with revision, status post placement of an ileal conduit/urostomy, status post left knee surgery for torn meniscus, status post Achilles tendon repair, status post back surgery, status post cervical node biopsy, status post appendectomy, and status post cholecystectomy. SOCIAL HISTORY: The patient lives in [place]. with two children. 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 Smoked for 50 years, one pack a day. Alcohol, rare. Status post multiple blood transfusion. No drug abuse. Sedentary lifestyle. ALLERGIES: NONE. TRAUMA: Status post back injury, status post fall with ankle injury, status post concussion as a teenager. IMMUNIZATION: Up-to-date. HOSPITALIZATIONS: Please see past medical history. FAMILY HISTORY: No family history of ESRD. PHYSICAL EXAMINATION: VITAL SIGNS: Blood pressure is noted at 106/57, heart rate 73, respiratory rate 20, temperature 98.6, and O2 saturation 93%. GENERAL: The patient is sleepy but arousable, but lethargic, not in overt distress. SKIN: Decreased turgor. HEENT: Slightly pale conjunctivae. Anicteric sclerae. NECK: No neck mass. No carotid bruits. No JVD. CHEST: No deformities. LUNGS: Decreased breath sounds. HEART: NSR. No murmur. No gallops. No rubs. ABDOMEN: Globular, soft, nontender. No masses. Positive for a urostomy bag. EXTREMITIES: No edema. No deformities. NEUROLOGIC: The patient is arousable and lethargic. No tremors. No asterixis. Able to move all extremities. LABORATORY DATA: Laboratories of April 17, 2020; white count 15.8, hemoglobin 9.2. Sodium 127, potassium 3.7, chloride 97, carbon dioxide 17, BUN 93, creatinine 4.17, glucose 108, GFR 14 mL/minute, calcium 9.1, AST 35, ALT 26, albumin is 3.3, CK 49, lactic acid 1.0. On March 06, 2020; BUN 43, creatinine 2.42. On November 08, 2019; BUN 42, creatinine 2.23. August 06, 2019; BUN 49, creatinine 2.46. Urinalysis of April 17, 2020; specific gravity 1.019, rbc 0-3, wbc 7-10, 3+ bacteria, protein is 10. April 17, 2020; chest x-ray showed left-sided pacemaker device. There are increased lung markings with left pleural effusion. CT scan of the brain on April 17, 2020; no mass or acute intracranial process. CT scan of the lumbar spine shows endplate compression fracture at T12, chronic L1- L2 vertebral body compression, bilateral pleural effusion with chronic right-sided hydronephrosis, left common iliac artery aneurysm-2.4 cm. ASSESSMENT AND PLAN: 1. Acute kidney injury-I suspect a superimposed hemodynamically-mediated renal dysfunction. We will do empiric volume repletion with this patient. Please note, repeat cardiac echo is currently pending. I do not see an indication for any emergent hemodialysis with this patient at the present time. Hold any diuretics. I do not think the patient is clinically volume overloaded. He is oxygenating adequately. Although the chest x-ray shows increased lung markings, we will attempt to do empiric volume repletion with this patient. 2. Right-sided chronic hydronephrosis-unclear if this was fully evaluated by MD Garcia. It is possible this is related to an underlying ureteral lesion-the patient has history of ureteral ? cancer. He has had stent placed in the past. He has also urostomy placed for that lesion. I do not think the hydronephrosis has aggravated his renal function since October his creatinine has been stable. It is only today that the creatinine has noted to have worsen, making me suspect a prerenal component. Please note the imaging/right hydronephrosis is noted to be stable and has not worsened. 3. Anemia. We will start Epogen and iron supplementation with this patient. 4. Overall prognosis remains guarded. Case discussed with the hospitalist. Job ID: [id number] MTDD
[2020-04-18] MEDS: Acetaminophen 325 MG TAB PO PRN ×3 (00:09→16:45)
--- NOTE | 2020-04-18 00:39 | CON ---
DATE OF CONSULTATION: 04/17/2020 HISTORY OF PRESENT ILLNESS: Our team was consulted to review a lumbar CT on this 80-year-old gentleman who has incurred a recent fall. His imaging shows acute T12 superior endplate fractures with no significant retropulsion into the central canal as well as stable chronic L1 and L2 compression fractures with prior vertebroplasty at L2. PT/OT consult has been placed. Our team recommends that patient be fitted for a TLSO clamshell brace to wear when out of bed. Our team will then arrange for upright x-rays of the lumbar spine to include the T12 segment in 2 weeks for reevaluation. This case was discussed and imaging reviewed with Dr. Rivera, who agrees with this plan. Please call our team for any additional questions or concerns. Job ID: [id number]
[2020-04-18 06:28] LABS: Albumin 2.9 g/dL (3.4-4.8); Anion Gap 15 mmol/L (10-20); BUN (Urea Nitrogen) 90 mg/dL (8.4-25.7); BUN/Creatinine Ratio 22.84; Calc. Creatinine Clearance 16 mL/min (70-130); Calcium 8.1 mg/dL (7.8-10.44); Carbon Dioxide 18 mmol/L (23-31); Chloride 100 mmol/L (98-107); Estimated GFR-MDRD 15; Glucose 129 mg/dL (83-110); Phosphorus 3.2 mg/dL (2.3-4.7); Potassium 3.5 mmol/L (3.5-5.1); Sodium 129 mmol/L (136-145)
[2020-04-18] MEDS: Dextrose 5 % And 0.9 % NaCl 1,000 ML IV SCH ×2 (06:43→17:55)
[2020-04-18] MEDS: FLUoxetine HCl 10 MG CAP PO SCH (08:48)
[2020-04-18] MEDS: Senokot S 8.6-50 MG TAB PO SCH ×2 (08:48→20:07)
[2020-04-18] MEDS: Docusate 100 MG CAP PO SCH (08:48)
[2020-04-18] MEDS: Ferrous Sulfate 325 MG TAB PO SCH ×2 (08:48→16:45)
[2020-04-18] MEDS: Carvedilol 6.25 MG TAB PO SCH ×2 (08:48→20:08)
[2020-04-18] MEDS: Calcitriol 0.25 MCG CAP PO SCH (08:48)
[2020-04-18] MEDS: Sodium Bicarbonate Tab 325 MG TAB PO SCH ×3 (08:48→20:08)
[2020-04-18] MEDS: Heparin 5,000 UNITS/ML VIAL SC SCH ×3 (08:49→20:07)
[2020-04-18] MEDS: Lidocaine 5% Patch TD SCH (08:49)
[2020-04-18] MEDS ORDERED: Prevnar 13-Val Conj/PF 0.5 ML SYRINGE IM ONE (09:00)
[2020-04-18] MEDS ORDERED: FLUoxetine HCl 10 MG CAP PO SCH (09:00)
[2020-04-18] MEDS ORDERED: Docusate 100 MG CAP PO SCH (09:00)
[2020-04-18] MEDS ORDERED: Calcitriol 0.25 MCG CAP PO SCH (09:00)
--- NOTE | 2020-04-18 11:21 | CT ---
CT ABDOMEN NONCONTRAST CT PELVIS NONCONTRAST: (Urolithiasis protocol) DATE: 04/18/2020 HISTORY: 80-year-old male with "acute kidney injury. Prior left nephrectomy. " Abdominal pain. COMPARISON: 11/08/2019 TECHNIQUE: IV injection of iodinated contrast media: None Oral contrast media: None FINDINGS: Other than for urolithiasis, the lack of IV and oral contrast limits the evaluation. Previously, there was a moderate-large left pleural effusion. This remains unchanged. High-grade left lower lobe atelectasis is surrounded by the pleural effusion again. There has been interval increase in volume of the previously small right pleural effusion, now modera te, but smaller than the left. Adjacent passive atelectasis in right lower lobe. Old compression fractures of L1 on L2. Vertebroplasty cement in L2. High-grade degenerative disc dise ase at L5-S1. These are all unchanged. 2.5 cm fusiform aneurysm of left common iliac artery, unchanged. No abdominal aortic aneurysm. New finding of rectal distention by stool and fluid. New finding of small amount of free fluid within the dependent portion of peritoneal cavity in presac ral region, and also more anteriorly around the rectum. Absent left kidney. Moderate dilation of right renal collecting system, unchanged. Mild to moderate dilation of right proximal and mid ureter, which deviates medially slightly to the l eft of midline just inferior to the aortic bifurcation, involved with the twisting of mesentery at midline in the mid to lower abdominal cavity, which is unchanged (best appreciated on coronal image 9 4 of 215, series 601), then traveling a short distance anteriorly and to the right of midline, then becomes difficult to identify. There is an ostomy in the right lower quadrant anterior abdominal wall , and therefore, perhaps this represents a urinary divergence. The urinary bladder is not identified. No pneumoperitoneum. No small bowel dilation. Previously, a portion of a redundant sigmoid: Was herniated through a ventral upper abdominal wall de fect. Now, the patient's upper extremity overlies this region, and a herniation has been reduced. It is uncertain whether the reduction was postsurgical or currently temporary because of patient's bates nd compressing on it. There is a new finding of a large amount of colonic gas, especially in the sigmoid colon, which is no w borderline dilated. IMPRESSION: 1) no interval change in degree of moderate right hydronephrosis, suggestive of partial obstruction o f right ureter. The partial obstruction may be due to chronic twisting of central mesentery at midline. This is unchanged since 11/08/2019. 2) the previously demonstrated focal herniation of a short segment of redundant sigmoid colon at uppe r ventral abdominal wall, has been reduced. It is unknown whether the reduction is postsurgical or temporary due to patient's hand compressing this region at the time of the scan. 3) new finding of a large amount of colonic bowel gas, especially throughout the redundant sigmoid co xu. 4) interval increase in volume of now moderate size right pleural effusion, but stable volume of mode rate to large left pleural effusion. 5) status post left nephrectomy 6) distention of rectum due to large volume of liquid stool. 7) right ureteral diversion emptying into right lower quadrant ostomy.
--- NOTE | 2020-04-18 11:31 | PRG ---
DATE OF SERVICE: 04/18/2020 This is a 30-minute initial visit note, in which 30 minutes was spent reviewing the imaging record, evaluation, examination of the patient, and formulation of plan. Greater than 50% time was spent in counseling on the patient, Emre Dhillon. Mr. Dhillon is an 80-year-old man with multiple fall history. He has a history of prior vertebroplasty at L2 and presents with acute T12 superior endplate fracture and history of chronic L1 and L2 fractures. We are arranging for clamshell brace when he is out of bed. This will likely be for 6 to 12 weeks. We will arrange for followup x-rays in 2 weeks. He is otherwise neurologically intact, but does appear to have dementia otherwise. Job ID: [id number]
--- NOTE | 2020-04-18 12:20 | PDOC.HOSPP ---
- Subjective Encounter Date: 04/18/20 Encounter Time: 09:30 Subjective: is more awake this am than yesterday evening not in distress is not oriented - Objective Vital Signs & Weight: Vital Signs (12 hours) Temp Pulse Resp BP BP Pulse Ox 04/18/20 11:07 99.0 F 68 16 101/61 93 L 04/18/20 09:27 93 L 04/18/20 08:49 93 L 04/18/20 08:48 109/62 04/18/20 07:31 98.4 F 98 16 109/62 91 L 04/18/20 03:00 98.1 F 74 16 118/69 92 L Weight Weight 169 lb 15.622 oz I&O: 04/17/20 04/18/20 04/19/20 06:59 06:59 06:59 Intake Total 725 Output Total 650 Balance 75 Result Diagrams: 04/17/20 12:10 04/18/20 05:50 Hospitalist ROS - Medication Medications: Active Medications Generic Name Dose Route Start Last Admin Trade Name David PRN Reason Stop Dose Admin Acetaminophen 650 mg 04/17/20 16:19 04/18/20 08:48 Tylenol PO 650 mg Q4H PRN Administration Headache/Fever/Mild Pain (1-3) Calcitriol 0.25 mcg 04/18/20 09:00 04/18/20 08:48 Rocaltrol PO 0.25 mcg DAILY STEPHANIA Administration Carvedilol 6.25 mg 04/17/20 21:00 04/18/20 08:48 Coreg PO 6.25 mg BID STEPHANIA Administration Docusate Sodium 100 mg 04/18/20 09:00 04/18/20 08:48 Colace PO 100 mg DAILY STEPHANIA Administration Epoetin Mateusz-epbx 7,500 unit 04/17/20 18:00 04/17/20 17:59 Retacrit SC 7,500 unit Q7D STEPHANIA Administration Ferrous Sulfate 325 mg 04/17/20 17:00 04/18/20 08:48 Feosol PO 325 mg BID-WM STEPHANIA Administration Fluoxetine HCl 10 mg 04/18/20 09:00 04/18/20 08:48 Prozac PO 10 mg DAILY STEPHANIA Administration Heparin Sodium (Porcine) 5,000 units 04/17/20 21:00 04/18/20 08:49 Heparin SC 5,000 units TID STEPHANIA Administration Dextrose/Sodium Chloride 1,000 mls @ 75 mls/hr 04/17/20 16:15 04/18/20 06:43 D5 0.9% Ns IV Not Given .[id number] STEPHANIA Lidocaine 1 patch 04/18/20 09:00 04/18/20 08:49 Lidoderm 5% Patch TD 1 patch DAILY STEPHANIA Administration Senna/Docusate Sodium 2 tab 04/17/20 21:00 04/18/20 08:48 Senokot S PO 2 tab BID STEPHANIA Administration Sodium Bicarbonate 650 mg 04/17/20 21:00 04/18/20 08:48 Bicarbonate, Sodium PO 650 mg TID STEPHANIA Administration - Exam General Appearance: awake alert, ill appearing Eye: PERRL, anicteric sclera ENT: no oropharyngeal lesions, dry oral mucosa Neck: supple, no JVD Heart: RRR, no murmur Respiratory: no wheezes, no rales Gastrointestinal: soft, non-tender, non-distended, normal bowel sounds Gastrointestinal - other findings: urostomy has clear urine Extremities: no cyanosis, no edema Neurological: cranial nerve grossly intact, no focal deficits Hosp A/P (1) SIMONA (acute kidney injury) Code(s): N17.9 - ACUTE KIDNEY FAILURE, UNSPECIFIED Status: Acute (2) Sepsis Code(s): A41.9 - SEPSIS, UNSPECIFIED ORGANISM Status: Acute Qualifiers: Sepsis type: Escherichia coli Sepsis acute organ dysfunction status: with acute organ dysfunction Severe sepsis acute organ dysfunction type: acute renal failure Acute renal failure type: with acute tubular necrosis Severe sepsis shock status: without septic shock Qualified Code(s): A41.51 - Sepsis due to Escherichia coli [E. coli]; R65.20 - Severe sepsis without septic shock; N17.0 - Acute kidney failure with tubular necrosis (3) E coli bacteremia Code(s): R78.81 - BACTEREMIA; B96.20 - UNSP ESCHERICHIA COLI THE CAUSE OF DISEASES CLASSD ELSWHR Status: Acute (4) UTI (urinary tract infection) Status: Acute Qualifiers: Urinary tract infection type: acute pyelonephritis Qualified Code(s): N10 - Acute pyelonephritis (5) Severe dehydration Code(s): E86.0 - DEHYDRATION Status: Acute (6) Dementia Code(s): F03.90 - UNSPECIFIED DEMENTIA WITHOUT BEHAVIORAL DISTURBANCE Status: Chronic Qualifiers: Dementia type: unspecified type Dementia behavioral disturbance: without behavioral disturbance Qualified Code(s): F03.90 - Unspecified dementia without behavioral disturbance (7) Anemia Code(s): D64.9 - ANEMIA, UNSPECIFIED Status: Chronic Qualifiers: Anemia type: unspecified type Qualified Code(s): D64.9 - Anemia, unspecified (8) CKD (chronic kidney disease) Code(s): N18.9 - CHRONIC KIDNEY DISEASE, UNSPECIFIED Status: Chronic Qualifiers: Chronic kidney disease stage: stage 3 (moderate) Qualified Code(s): N18.3 - Chronic kidney disease, stage 3 (moderate) - Plan is on ceftriaxone, has 2/2 blood cultures growing e.coli, likely source is his kidney, await full sensitivities iv hydration appreciate help from , has T12 compression fracture with disc herniation, will be in clam shell Creatinine is slowly trending down gave full updates to daughter this am and over phone covid 19 is -ve oral diet, encourage po intake PT/OT to mobilize as tolerated will need rehab or swing bed for dc plan
[2020-04-18] MEDS ORDERED: cefTRIAXone\\ROCEPHIN 1 GM in Sodium Chloride 0.9% 100 ML IVPB SCH (13:00)
[2020-04-18] MEDS: Meropenem 500 MG in Sodium Chloride 0.9% 100 ML IVPB SCH (14:38)
--- NOTE | 2020-04-18 19:40 | CON ---
DATE OF CONSULTATION: 04/18/2020 REASON FOR CONSULTATION: Bacteremia. 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 He is followed at [facility] and has had radiation chemotherapy in the past. He has chronic CKD associated with a single kidney situation. He also has been treated with immunotherapy for the past four years. For the past week, he has developed anorexia and back pain. He fell and was somewhat constipated. Daughter came to visit and found him unwell and brought him via EMS to the emergency room. He was lethargic on arrival. His BP was 106/62, pulse 75, respirations 16, temperature 97.7, andO2 saturation was 92 on room air. He did not appear in distress. The lungs were clear. Heart examination showed regular rate without murmurs. Abdomen was soft and described as not tender. The ileal conduit with urostomy in the right side. Other findings; white cell count 15.8, hemoglobin 9.2, platelets 144, and 90% neutrophils. Sodium 127, creatinine was higher than his baseline at 4.17 and his baseline is 2.23, AST 35, alkaline phosphatase 132, and albumin 3.3. Urinalysis with 7 to 10 wbc's. He had a COVID negative test. Now, we have 2 sets of blood cultures with E. coli, which appears to have ESBL phenotype. 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 Mild to moderate dilation of the right proximal in mid ureter due to twisting of mesentery at the midline in the mid to lower abdominal cavity, which is unchanged. Urinary bladder is not identified because it has been. Currently, Mr. Dhillon is somewhat confused. He has some utterance that do not make sense, although he knew he was in [facility]. He is not in distress. He denies any headaches. Points to his abdomen when I asked him about pain around the periumbilical region. He is breathing comfortably at rest. Denies any chest pain. No joint symptoms or skin disorder. 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 He has had chemoradiation therapy and now is on immunotherapy. Osteoarthritis, colonoscopies, COPD, laparoscopic cholecystectomy, appendectomy, lumbar spine disk repair, right fourth finger amputation accidental and medications had been on Bactrim, Flagyl, calcitriol, Eliquis, Colace, fluoxetine, and melatonin. SOCIAL HISTORY: Heavy smoking up till 2014. 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 CURRENT MEDICATIONS: Had been on ceftriaxone has been switched to meropenem and he is on p.r.n. medications, fluoxetine. FAMILY HISTORY: Noncontributory. ALLERGIES: NONE. PHYSICAL EXAMINATION: VITAL SIGNS: Temperature has been normal since admission. BP 112/57, pulse 97, respirations 16, O2 saturation 93 to 95 on 2 L nasal cannula. SKIN: The patient has a peripheral IV access, has an ileal conduit with clear urine in the right side of the abdomen. No lymphadenopathy. HEENT: Ocular movements conjugate. Oral cavity with dentures in the upper aspect of his maxilla. He has quite a few teeth in the mandible. Ocular movements conjugate. Oral cavity normal. NECK: Supple. No jugular vein distention. LUNGS: Symmetric clear breath sounds. HEART: S1 and S2. Regular rate. ABDOMEN: Soft. Mild tenderness in the periumbilical area. The ileal conduit site appears to be within normal limits. GENITAL: Not remarkable. EXTREMITIES: No joint inflammatory activity. No edema. Pulses are 1+ in dorsalis pedis. He is able to move extremities equally. Plantar responses are flexor. No clonus. NEUROLOGIC: He is awake, knows his name and knew he was in [place], but could not tell me the name of the hospital or the date. Recollection is quite limited. He had some confabulation and some delusional thinking process. LABORATORY DATA: The labs have been discussed above. The creatinine is down to 3.94 and albumin is down to 2.9. ASSESSMENT AND PLAN: 1. Urothelial cancer status post left nephrectomy, left ureterectomy and bladder resection with ileal conduit. 2. 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 3. Chronic renal insufficiency and likely urinary tract infection associated with pyelonephritis due to extended-spectrum beta-lactamases Escherichia coli and intraabdominal inflammatory process is less likely. No evidence of a respiratory tract inflammatory process at the moment. The patient has been transitioned to meropenem and he has not had a Urology consult here yet, may want to touch base with urologist regarding his hydronephrosis to see if he merits any intervention at this point in time. He probably sees a urologist at [facility]. Duration of therapy around 2 weeks approximately. It looks like the ileal conduit itself does not have any evidence of strictures or other abnormalities. The hydronephrosis may be contributing to the infection and bacteremia. It may lead to recurrence of the problem in the future. The radiologist does not make any comments on any potential consequences in terms of ischemia to the intestinal loops from the mesenteric abnormality and I wonder if this twisting might be related to retroperitoneal fibrosis since the patient was treated with radiation therapy in the past. If he requires access for the completion of the meropenem treatment or Invanz in the outpatient setting, then he would need placement of a port or Wright catheter to avoid the placement of a peripherally inserted central catheter line, since he may eventually require hemodialysis and would need his upper extremity vessels. Job ID: [id number]
[2020-04-18] MEDS: Lidocaine Patch Removal 1 EACH TOP SCH (20:09)
[2020-04-19] MEDS: Meropenem 500 MG in Sodium Chloride 0.9% 100 ML IVPB SCH ×2 (01:53→16:45)
[2020-04-19 05:47] LABS: Albumin 2.8 g/dL (3.4-4.8); Anion Gap 13 mmol/L (10-20); BUN (Urea Nitrogen) 87 mg/dL (8.4-25.7); BUN/Creatinine Ratio 24.65; Calc. Creatinine Clearance 18 mL/min (70-130); Calcium 8.2 mg/dL (7.8-10.44); Carbon Dioxide 17 mmol/L (23-31); Chloride 105 mmol/L (98-107); Estimated GFR-MDRD 17; Glucose 168 mg/dL (83-110); Phosphorus 2.3 mg/dL (2.3-4.7); Potassium 3.1 mmol/L (3.5-5.1); Sodium 132 mmol/L (136-145)
[2020-04-19] MEDS: Lidocaine 5% Patch TD SCH (09:11)
[2020-04-19] MEDS: Sodium Bicarbonate Tab 325 MG TAB PO SCH ×3 (09:11→20:28)
[2020-04-19] MEDS: Ferrous Sulfate 325 MG TAB PO SCH ×2 (09:11→17:54)
[2020-04-19] MEDS: Docusate 100 MG CAP PO SCH (09:12)
[2020-04-19] MEDS: FLUoxetine HCl 10 MG CAP PO SCH (09:12)
[2020-04-19] MEDS: Senokot S 8.6-50 MG TAB PO SCH ×2 (09:12→20:28)
[2020-04-19] MEDS: Carvedilol 6.25 MG TAB PO SCH ×2 (09:12→20:28)
[2020-04-19] MEDS: Calcitriol 0.25 MCG CAP PO SCH (09:13)
[2020-04-19] MEDS: Dextrose 5 % And 0.9 % NaCl 1,000 ML IV SCH (09:13)
[2020-04-19] MEDS: Heparin 5,000 UNITS/ML VIAL SC SCH ×3 (09:13→20:29)
[2020-04-19] MEDS ORDERED: Potassium Chloride 10 MEQ in Premix Bag 1 BAG IVPB SCH (11:00)
--- NOTE | 2020-04-19 11:45 | PRG ---
DATE OF SERVICE: 04/19/2020 SUBJECTIVE: Mr. Dhillon is an 80-year-old white male, who was admitted for frequent falls and progressive deterioration of his renal function.. He was found to have a compression fracture. In addition, he was in acute kidney injury on top of his chronic renal failure. He has also finding of a chronic right hydronephrosis. He was empirically volume repleted with the improvement of the renal function. His initial creatinine was noted at 4.17. It is currently at 3.53. GFR 17 mL/minute. He continues to be intermittently confused. He denies any chest pain or shortness of breath. OBJECTIVE: VITAL SIGNS: Blood pressure 106/58, heart rate 84, respiratory rate 18, temperature 99.3, O2 saturations 93%. GENERAL: The patient is awake, confused, not in overt distress. SKIN: Adequate turgor. HEENT: Slightly pale conjunctivae. Anicteric sclerae. NECK: No neck mass. No carotid bruits. No JVD. CHEST: No deformities. LUNGS: Decreased breath sounds. HEART: Normal sinus rhythm. No murmur. No gallops. No rubs. ABDOMEN: Globular, soft, nontender. No masses. Positive for a urostomy. EXTREMITIES: No edema. MEDICATIONS: Medications of April 19, 2020, was reviewed. LABORATORY DATA: Laboratories of April 19, 2020; white count 15.8, hemoglobin 9.2, hematocrit 32. Sodium 132, potassium 3.1, chloride 105, carbon dioxide 17, BUN 37, creatinine 3.53, calcium 8.2, phosphorus 2.3, albumin 2.8. ASSESSMENT AND PLAN: 1. Acute kidney injury on top of his chronic renal failure-he has a superimposed hemodynamically-mediated dysfunction. Continue IV hydration. Due to decreased p.o. intake as well as hypoalbuminemia, we will give a salt poor albumin infusion 25 g IV q.6 for 4 doses. 2. Anemia. Currently on weekly Epogen. 3. Escherichia coli bacteremia-currently on IV meropenem. ID is following. 4. Chronic right hydronephrosis, supportive care. Case discussed at length with the patient's as well as his daughter. His overall prognosis remains guarded. We will be rechecking a basic metabolic profile and CBC in a.m. Job ID: [id number] [facility]
--- NOTE | 2020-04-19 13:31 | PDOC.HOSPP ---
- Subjective Encounter Date: 04/19/20 Encounter Time: 08:00 Subjective: awake, not oriented, is talking to himself has cough - Objective Vital Signs & Weight: Vital Signs (12 hours) Temp Pulse Resp BP BP Pulse Ox 04/19/20 11:14 98.9 F 87 18 133/82 96 04/19/20 09:12 106/58 L 04/19/20 07:36 99.3 F 84 18 106/58 L 93 L 04/19/20 05:00 89 18 95 Weight Admit Weight 169 lb Weight 169 lb 15.622 oz I&O: 04/18/20 04/19/20 04/20/20 06:59 06:59 06:59 Intake Total 725 1775 Output Total 650 1200 Balance 75 575 Result Diagrams: 04/17/20 12:10 04/19/20 05:09 Hospitalist ROS - Medication Medications: Active Medications Generic Name Dose Route Start Last Admin Trade Name Freq PRN Reason Stop Dose Admin Acetaminophen 650 mg 04/17/20 16:19 04/18/20 16:45 Tylenol PO 650 mg Q4H PRN Administration Headache/Fever/Mild Pain (1-3) Calcitriol 0.25 mcg 04/18/20 09:00 04/19/20 09:13 Rocaltrol PO 0.25 mcg DAILY STEPHANIA Administration Carvedilol 6.25 mg 04/17/20 21:00 04/19/20 09:12 Coreg PO 6.25 mg BID STEPHANIA Administration Docusate Sodium 100 mg 04/18/20 09:00 04/19/20 09:12 Colace PO 100 mg DAILY STEPHANIA Administration Epoetin Mateusz-epbx 7,500 unit 04/17/20 18:00 04/17/20 17:59 Retacrit SC 7,500 unit Q7D STEPHANIA Administration Ferrous Sulfate 325 mg 04/17/20 17:00 04/19/20 09:11 Feosol PO 325 mg BID-WM STEPHANIA Administration Fluoxetine HCl 10 mg 04/18/20 09:00 04/19/20 09:12 Prozac PO 10 mg DAILY STEPHANIA Administration Heparin Sodium (Porcine) 5,000 units 04/17/20 21:00 04/19/20 09:13 Heparin SC 5,000 units TID STEPHANIA Administration Dextrose/Sodium Chloride 1,000 mls @ 75 mls/hr 04/17/20 16:15 04/19/20 09:13 D5 0.9% Ns IV Not Given .[id number] STEPHANIA Meropenem 500 mg/ Sodium 100 mls @ 200 mls/hr 04/18/20 14:00 04/19/20 01:53 Chloride IVPB 100 mls 0200,1400 STEPHANIA Administration Potassium Chloride 10 meq/ 100 mls @ 100 mls/hr 04/19/20 11:00 04/19/20 11:44 Device IVPB 04/19/20 14:00 100 mls NOW STEPHANIA Administration Lidocaine 1 patch 04/18/20 09:00 04/19/20 09:11 Lidoderm 5% Patch TD 1 patch DAILY STEPHANIA Administration Miscellaneous Medication 1 each 04/18/20 21:00 04/18/20 20:09 Lidocaine Patch Removal TOP 1 each HS STEPHANIA Administration Senna/Docusate Sodium 2 tab 04/17/20 21:00 04/19/20 09:12 Senokot S PO 2 tab BID STEPHANIA Administration Sodium Bicarbonate 650 mg 04/17/20 21:00 04/19/20 09:11 Bicarbonate, Sodium PO 650 mg TID STEPHANIA Administration - Exam General Appearance: awake alert, ill appearing Eye: PERRL, anicteric sclera ENT: no oropharyngeal lesions, dry oral mucosa Neck: supple, no JVD Heart: RRR, no murmur Respiratory: no wheezes, no rales, rhonchi Gastrointestinal: soft, non-tender, non-distended, normal bowel sounds Gastrointestinal - other findings: urostomy bag has clear urine Extremities: no cyanosis, no edema Neurological: cranial nerve grossly intact, no focal deficits Hosp A/P (1) SIMONA (acute kidney injury) Code(s): N17.9 - ACUTE KIDNEY FAILURE, UNSPECIFIED Status: Acute (2) Sepsis Code(s): A41.9 - SEPSIS, UNSPECIFIED ORGANISM Status: Acute Qualifiers: Sepsis type: Escherichia coli Sepsis acute organ dysfunction status: with acute organ dysfunction Severe sepsis acute organ dysfunction type: acute renal failure Acute renal failure type: with acute tubular necrosis Severe sepsis shock status: without septic shock Qualified Code(s): A41.51 - Sepsis due to Escherichia coli [E. coli]; R65.20 - Severe sepsis without septic shock; N17.0 - Acute kidney failure with tubular necrosis (3) E coli bacteremia Code(s): R78.81 - BACTEREMIA; B96.20 - UNSP ESCHERICHIA COLI THE CAUSE OF DISEASES CLASSD ELSWHR Status: Acute (4) UTI (urinary tract infection) Status: Acute Qualifiers: Urinary tract infection type: acute pyelonephritis Qualified Code(s): N10 - Acute pyelonephritis (5) Severe dehydration Code(s): E86.0 - DEHYDRATION Status: Acute (6) Dementia Code(s): F03.90 - UNSPECIFIED DEMENTIA WITHOUT BEHAVIORAL DISTURBANCE Status: Chronic Qualifiers: Dementia type: unspecified type Dementia behavioral disturbance: without behavioral disturbance Qualified Code(s): F03.90 - Unspecified dementia without behavioral disturbance (7) Anemia Code(s): D64.9 - ANEMIA, UNSPECIFIED Status: Chronic Qualifiers: Anemia type: unspecified type Qualified Code(s): D64.9 - Anemia, unspecified (8) CKD (chronic kidney disease) Code(s): N18.9 - CHRONIC KIDNEY DISEASE, UNSPECIFIED Status: Chronic Qualifiers: Chronic kidney disease stage: stage 3 (moderate) Qualified Code(s): N18.3 - Chronic kidney disease, stage 3 (moderate) - Plan is on meropenem, has 2/2 blood cultures growing e.coli, likely source is his kidney iv hydration appreciate help from , has T12 compression fracture with disc herniation, will be in clam shell Creatinine is slowly trending down, is getting alb infusions watch for vol overload covid 19 is -ve oral diet, encourage po intake PT/OT to mobilize as tolerated will need rehab or swing bed for dc plan prognosis guarded
[2020-04-19] MEDS: Albumin 25% 25 GM/100 ML BOT IVPB SCH ×2 (14:11→17:59)
[2020-04-19] MEDS: Lidocaine Patch Removal 1 EACH TOP SCH (20:31)
[2020-04-20] MEDS: Albumin 25% 25 GM/100 ML BOT IVPB SCH ×2 (00:16→06:19)
[2020-04-20] MEDS: Meropenem 500 MG in Sodium Chloride 0.9% 100 ML IVPB SCH ×2 (03:00→14:12)
[2020-04-20] MEDS: Dextrose 5 % And 0.9 % NaCl 1,000 ML IV SCH ×2 (03:00→11:49)
[2020-04-20 05:34] LABS: Anion Gap 17 mmol/L (10-20); BUN (Urea Nitrogen) 79 mg/dL (8.4-25.7); BUN/Creatinine Ratio 25.57; Calc. Creatinine Clearance 20 mL/min (70-130); Calcium 8.6 mg/dL (7.8-10.44); Carbon Dioxide 12 mmol/L (23-31); Chloride 110 mmol/L (98-107); Estimated GFR-MDRD 19; Glucose 140 mg/dL (83-110); Phosphorus 2.4 mg/dL (2.3-4.7); Potassium 4.1 mmol/L (3.5-5.1); Sodium 135 mmol/L (136-145)
[2020-04-20] MEDS: Carvedilol 6.25 MG TAB PO SCH ×2 (08:21→19:55)
[2020-04-20] MEDS: Ferrous Sulfate 325 MG TAB PO SCH ×2 (08:21→16:05)
[2020-04-20] MEDS: Sodium Bicarbonate Tab 325 MG TAB PO SCH ×3 (08:21→19:55)
[2020-04-20] MEDS: Calcitriol 0.25 MCG CAP PO SCH (08:21)
[2020-04-20] MEDS: Docusate 100 MG CAP PO SCH (08:21)
[2020-04-20] MEDS: Senokot S 8.6-50 MG TAB PO SCH ×2 (08:21→19:56)
[2020-04-20] MEDS: FLUoxetine HCl 10 MG CAP PO SCH (08:22)
[2020-04-20] MEDS: Heparin 5,000 UNITS/ML VIAL SC SCH ×3 (08:22→19:56)
[2020-04-20] MEDS: Lidocaine 5% Patch TD SCH (08:36)
[2020-04-20 08:53] LABS: #Basophils 0.1 thou/uL (0.0-0.2); #Lymphocytes 0.5 thou/uL (1.20-3.40); #Monocytes 0.9 thou/uL (0.11-0.59); #Neutrophils 14.7 thou/uL (1.40-6.50); %Basophils 0.6 % (0.0-1.0); %Eosinophils 0.3 % (0.0-10.0); %Lymphocytes 2.9 % (21.0-51.0); %Monocytes 5.3 % (0.0-10.0); %Neutrophils 90.9 % (42.0-75.0); Hemoglobin 8.5 g/dL (14.0-18.0); Mean Corpuscular HGB CONC 33.4 g/dL (32.0-36.0); Mean Corpuscular Hemoglobin 33.9 pg (27.0-31.0); Platelet Count 133 thou/uL (130-400); RBC Distribution Width 12.7 % (11.5-14.5); Red Blood Cell (RBC) Count 2.51 mill/uL (4.70-6.10); White Blood Cell (WBC) Count 16.2 thou/uL (4.8-10.8)
--- NOTE | 2020-04-20 09:16 | PRG ---
DATE OF SERVICE: 04/20/2020 SERVICE: Renal Medicine. SUBJECTIVE: Mr. Dhillon is an 80-year-old white male who was admitted for generalized weakness and due to frequent falls. He is being seen by the Renal Service for his acute kidney injury on top of his chronic renal failure. We felt that he had a superimposed hemodynamically-mediated renal dysfunction. For that reason, the patient was started on IV hydration, and there was a slow improvement in the renal function. He was also found to have findings of right hydronephrosis, which is chronic in nature. The patient has been confused in the last several days. OBJECTIVE: VITAL SIGNS: Blood pressure 127/76, heart rate 72, respiratory rate 18, temperature 97.9, and O2 sats 92%. GENERAL: He was noted to be awake, but confused, not in distress. SKIN: Decreased turgor. HEENT: Slightly pale conjunctivae. Anicteric sclerae. NECK: No neck mass. No carotid bruits. No JVD. CHEST: No deformities. LUNGS: Clear breath sounds. No wheezing. No crackles. HEART: Normal sinus rhythm. No murmurs, no gallops, and no rubs. ABDOMEN: Globular, soft, nontender. Positive for urostomy bag. EXTREMITIES: No edema. MEDICATIONS: Medications of April 20, 2020, reviewed. LABORATORY DATA: Laboratories of April 17, 2020; white count 15.8, hemoglobin 9.2. Sodium 135, potassium 4.1, chloride 110, carbon dioxide 12, BUN 79, creatinine 3.09, GFR 19 mL/minute, phosphorus 2.4, calcium 8.6, and albumin 3.0. ASSESSMENT AND PLAN: 1. Acute kidney injury-superimposed hemodynamically-mediated renal dysfunction, improving creatinine. Please note the patient came in with a peak creatinine of 4.17. He has received albumin infusion as well as normal saline. No indication for any dialytic intervention. 2. Chronic renal failure. This is secondary to hypertensive nephropathy. 3. Metabolic acidosis, currently on sodium bicarbonate tabs. If unimproved, we can always consider starting the patient on sodium bicarbonate. 4. Hypokalemia, much improved. 5. Escherichia coli bacteremia, currently on IV meropenem. ID is following. 6. Recheck CBC and basic metabolic profile in a.m. Job ID: [id number]
--- NOTE | 2020-04-20 09:18 | PDOC.HOSPP ---
- Subjective Encounter Date: 04/20/20 Encounter Time: 11:30 Subjective: Patient mumbling to himself, no understandible words. Clamshell brace in place. - Objective Vital Signs & Weight: Vital Signs (12 hours) Temp Pulse Resp BP Pulse Ox 04/20/20 07:50 97.9 F 72 18 127/76 92 L 04/20/20 03:37 97.9 F 88 16 122/50 L 95 04/20/20 02:46 92 L 04/19/20 23:39 99.0 F 73 17 118/67 96 Weight Admit Weight 169 lb Weight 169 lb 15.622 oz I&O: 04/19/20 04/20/20 04/21/20 06:59 06:59 06:59 Intake Total 1775 1436 Output Total 1200 475 Balance 575 961 Result Diagrams: 04/20/20 08:46 04/20/20 05:01 Hospitalist ROS - Review of Systems ROS unobtainable: due to mental status - Medication Medications: Active Medications Generic Name Dose Route Start Last Admin Trade Name Freq PRN Reason Stop Dose Admin Acetaminophen 650 mg 04/17/20 16:19 04/18/20 16:45 Tylenol PO 650 mg Q4H PRN Administration Headache/Fever/Mild Pain (1-3) Calcitriol 0.25 mcg 04/18/20 09:00 04/19/20 09:13 Rocaltrol PO 0.25 mcg DAILY STEPHANIA Administration Carvedilol 6.25 mg 04/17/20 21:00 04/19/20 20:28 Coreg PO 6.25 mg BID STEPHANIA Administration Docusate Sodium 100 mg 04/18/20 09:00 04/19/20 09:12 Colace PO 100 mg DAILY STEPHANIA Administration Epoetin Mateusz-epbx 7,500 unit 04/17/20 18:00 04/17/20 17:59 Retacrit SC 7,500 unit Q7D STEPHANIA Administration Ferrous Sulfate 325 mg 04/17/20 17:00 04/19/20 17:54 Feosol PO 325 mg BID-WM STEPHANIA Administration Fluoxetine HCl 10 mg 04/18/20 09:00 04/19/20 09:12 Prozac PO 10 mg DAILY STEPHANIA Administration Heparin Sodium (Porcine) 5,000 units 04/17/20 21:00 04/19/20 20:29 Heparin SC 5,000 units TID STEPHANIA Administration Dextrose/Sodium Chloride 1,000 mls @ 75 mls/hr 04/17/20 16:15 04/20/20 03:00 D5 0.9% Ns IV 1,000 mls .[id number] STEPHANIA Administration Meropenem 500 mg/ Sodium 100 mls @ 200 mls/hr 04/18/20 14:00 04/20/20 03:00 Chloride IVPB 100 mls 0200,1400 STEPHANIA Administration Lidocaine 1 patch 04/18/20 09:00 04/19/20 09:11 Lidoderm 5% Patch TD 1 patch DAILY STEPHANIA Administration Miscellaneous Medication 1 each 04/18/20 21:00 04/19/20 20:31 Lidocaine Patch Removal TOP Not Given HS STEPHANIA Senna/Docusate Sodium 2 tab 04/17/20 21:00 04/19/20 20:28 Senokot S PO 2 tab BID STEPHANIA Administration Sodium Bicarbonate 650 mg 04/17/20 21:00 04/19/20 20:28 Bicarbonate, Sodium PO 650 mg TID STEPHANIA Administration - Exam General Appearance: NAD ENT: moist mucosa Heart: RRR, no murmur, no gallops, no rubs Respiratory: CTAB, no wheezes, no rales, no ronchi Gastrointestinal: normal bowel sounds Gastrointestinal - other findings: clamshell brace in place Psychiatric: not oriented, somnolent Hosp A/P (1) SIMONA (acute kidney injury) Code(s): N17.9 - ACUTE KIDNEY FAILURE, UNSPECIFIED Status: Acute (2) E coli bacteremia Code(s): R78.81 - BACTEREMIA; B96.20 - UNSP ESCHERICHIA COLI THE CAUSE OF DISEASES CLASSD ELSWHR Status: Acute (3) Sepsis Code(s): A41.9 - SEPSIS, UNSPECIFIED ORGANISM Status: Acute Qualifiers: Sepsis type: Escherichia coli Sepsis acute organ dysfunction status: with acute organ dysfunction Severe sepsis acute organ dysfunction type: acute renal failure Acute renal failure type: with acute tubular necrosis Severe sepsis shock status: without septic shock Qualified Code(s): A41.51 - Sepsis due to Escherichia coli [E. coli]; R65.20 - Severe sepsis without septic shock; N17.0 - Acute kidney failure with tubular necrosis (4) UTI (urinary tract infection) Status: Acute Qualifiers: Urinary tract infection type: acute pyelonephritis Qualified Code(s): N10 - Acute pyelonephritis (5) Severe dehydration Code(s): E86.0 - DEHYDRATION Status: Acute (6) Dementia Code(s): F03.90 - UNSPECIFIED DEMENTIA WITHOUT BEHAVIORAL DISTURBANCE Status: Chronic Qualifiers: Dementia type: unspecified type Dementia behavioral disturbance: without behavioral disturbance Qualified Code(s): F03.90 - Unspecified dementia without behavioral disturbance (7) Anemia Code(s): D64.9 - ANEMIA, UNSPECIFIED Status: Chronic Qualifiers: Anemia type: unspecified type Qualified Code(s): D64.9 - Anemia, unspecified (8) CKD (chronic kidney disease) Code(s): N18.9 - CHRONIC KIDNEY DISEASE, UNSPECIFIED Status: Chronic Qualifiers: Chronic kidney disease stage: stage 3 (moderate) Qualified Code(s): N18.3 - Chronic kidney disease, stage 3 (moderate) - Plan is on meropenem, has 2/2 blood cultures growing e.coli, likely source is his kidney iv hydration appreciate help from , has T12 compression fracture with disc herniation, will be in clam shell Creatinine is slowly trending down, is getting alb infusions watch for vol overload covid 19 is -ve oral diet, encourage po intake PT/OT to mobilize as tolerated will need rehab or swing bed for dc plan prognosis guarded
--- NOTE | 2020-04-20 17:41 | PRG ---
DATE OF SERVICE: 04/20/2020 SUBJECTIVE: Mr. Dhillon has a Clamshell brace in place for the T12 compression fracture and he is kind of somewhat confused. OBJECTIVE: GENERAL: He does not appear in acute distress. VITAL SIGNS: He has been afebrile, BP 108/68, pulse 84, respirations 18, and O2 saturation 88 to 92. LUNGS: Symmetric air entry. HEART: S1 and S2. Regular rate. ABDOMEN: Soft, not distended. He has the ileal conduit. I's and O's are positive 500 to 700. LABORATORY DATA: White cell count is 16.2 from this morning, hemoglobin 8.5, platelets 133, and 90% neutrophils. Sodium 135 and creatinine 3.09. Microbiology with E coli with ESBL phenotype. ASSESSMENT AND DISCUSSION: Urothelial cancer status post left nephrectomy, urethrectomy, and bladder resection with ileal conduit, distant mesentery, which is a chronic finding, associated with some element of hydroureter in the right side with moderate hydronephrosis on the right side, chronic renal insufficiency, likely pyelonephritis with extended-spectrum beta-lactamase Escherichia coli. The duration of therapy now has been shortened for pyelonephritis around 7 days, in his case I think 7 to 10 days would be enough. He has received 3 days thus far, actually 4 days if we count the first day, and so another 3 to 6 days to go to complete therapy. Depending on where he is transferred, we could envision continuing peripheral IV access, administration of ertapenem to avoid having to place either a PICC or Wright catheter or other type of central line port. Job ID: [id number]
--- NOTE | 2020-04-20 18:04 | CON ---
DATE OF CONSULTATION: 04/20/2020 HISTORY OF PRESENT ILLNESS: I was asked to see this patient because of a febrile urinary tract infection with positive blood cultures of an E coli with multidrug resistance. He is currently on meropenem for this. He has been in the hospital since the . He has not had a high fever while he has been here and it is kind of just low-grade temperature. It looks like he was brought in because he was found to have altered mental status and not doing well at home by one of his family members. He has renal insufficiency, this is not new, but it has worsened. His creatinine was 3.9 on the , 4.1 on the , and so it has come down to 3.[address] Schwartz is seeing him for this. He has had a CAT scan done and the fact that he has a rather complicated urologic history that I am not sure of all the events. 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 He had presented I think with hematuria, and I believe some hydro on a workup for. He went to [facility], I believe he had left nephrectomy, it sounds I did not think he had a cystectomy, but he has probably had a cystectomy. I have not seen him since . I believe he still was seeing the medical oncologist at [facility]. His last visit there was November. Apparently, he has not had any evidence of disease recurrence. He is at this point probably not going back to [facility] because of some difficulty getting there. He has dementia now. He gets very upset and angry with his visits down there, so they actually will be seen, I think, Dr. Warren in the near future to re-establish care here. So, his CAT scan that he had done here shows absent left kidney and some right hydro. I looked at the CAT scan that he had done earlier this year in October, but CT then looks pretty much the same as it looks now. I do not have a CAT scan prior to 2015, at which point he did not have any of those findings, although he did have a right lower quadrant ileostomy. I did talk with Dr. Schwartz about his care. He said that he felt that his creatinine had jumped up because he was sick at home and dehydrated and that it is improving. He expects it to continue to improve. He said that he did talk with some of the doctors at [facility] 6 months ago about this right hydro and they had at that time not desired that it would be pursued with any type of percutaneous drainage procedure. His thoughts were that his kidney function probably would improve as his sepsis is treated and as he is rehydrated. On exam, his abdomen is soft. He does not have any flank tenderness. There is no abnormality noted to the external genitalia. The testicles are descended. There is no mass and there is no tenderness. As mentioned, his most current vital signs; he is afebrile and stable with a decent O2 saturation. He does not have a high fever. His creatinine is improving. He was a little hyponatremic, that is improving. His white count was 15.8 when he was admitted and today it is 16.2, it is not really significantly changed and still has a lot of neutrophils. He is still somewhat confused also. IMPRESSION: History of left ureteral cancer. He has had a left nephroureterectomy. It looks like he may have had a cystectomy. I will see if I have any records of that. I did talk with the , but I did not ask her specifically about that. He does have some chronic right hydro of early 6 months duration. At that time, he had a creatinine in the mid to low 2 range, so I think that he will probably continue to come back to that ranges as his creatinine continues to improve here. I would not at this point recommend that we pursue a percutaneous nephrostomy. His current CAT scan does not look significantly different in regard to the kidney with hydronephrosis. There is nothing that would suggest a renal abscess or significant perivesical stranding around it. Job ID: [id number]
[2020-04-20] MEDS: Acetaminophen 325 MG TAB PO PRN (19:56)
[2020-04-20] MEDS: Lidocaine Patch Removal 1 EACH TOP SCH (19:56)
[2020-04-20] MEDS: Morphine 2 MG/ML VIAL SLOW IVP PRN (20:06)
--- NOTE | 2020-04-20 22:19 | PDOC.EVN ---
Event Note - Event Note Event Note: Nurse called. Patient irregular HR, 110s to 70s, BP stable, tachypneic in 20s- 30s, baseline mentation, afebrile. PMH afib. getting IVF. STAT ekg, cxr, bmp, cbc, bnp. hold IVF for now.
--- NOTE | 2020-04-20 22:39 | RAD ---
PORTABLE CHEST: Date: 04/20/2020 HISTORY: Tachypnea. COMPARISON: 04/17/2020. FINDINGS: Increasing opacification of the left chest. Evidence of left effusion with left lung atelectasis and infiltrate. Cardiomegaly with mild vascular engorgement. Right lung appears clear of infiltrate. Pace maker leads unchanged. IMPRESSION: Increasing opacification in the left chest. POS: AGW
[2020-04-20 22:48] LABS: #Eosinphils 0.1 thou/uL (0.0-0.7); #Lymphocytes 0.4 thou/uL (1.20-3.40); #Monocytes 0.9 thou/uL (0.11-0.59); #Neutrophils 13.7 thou/uL (1.40-6.50); %Eosinophils 0.5 % (0.0-10.0); %Lymphocytes 2.4 % (21.0-51.0); %Monocytes 6.2 % (0.0-10.0); %Neutrophils 90.9 % (42.0-75.0); Hemoglobin 8.3 g/dL (14.0-18.0); Mean Corpuscular HGB CONC 33.1 g/dL (32.0-36.0); Mean Corpuscular Hemoglobin 33.7 pg (27.0-31.0); Mean Platelet Volume 10.2 fL (7.4-10.4); Platelet Count 154 thou/uL (130-400); RBC Distribution Width 12.8 % (11.5-14.5); Red Blood Cell (RBC) Count 2.45 mill/uL (4.70-6.10); White Blood Cell (WBC) Count 15.1 thou/uL (4.8-10.8)
[2020-04-20 23:13] LABS: Anion Gap 15 mmol/L (10-20); BUN (Urea Nitrogen) 80 mg/dL (8.4-25.7); Calc. Creatinine Clearance 23 mL/min (70-130); Carbon Dioxide 15 mmol/L (23-31); Chloride 113 mmol/L (98-107); Estimated GFR-MDRD 23; Glucose 160 mg/dL (83-110); Magnesium 1.8 mg/dL (1.6-2.6); Sodium 140 mmol/L (136-145)
[2020-04-21 00:09] LABS: Base Excess (BEa) -10.8 mEq/L (-2.0 to +3.0); Calcium, Ionized (arterial) 1.27 mmol/L (1.12-1.30); Carboxyhemoglobin (COHb) 0.3 gm% (0.0-3.0); Hemoglobin (Hb) 9.5 g/dL (14.0-18.0); O2 Tension (PaO2), arterial 109.2 mmHg (> 60.0); Potassium - ABG Lab 3.73 mmol/L (3.70-5.30); pH, Arterial 7.37 (7.35-7.45)
[2020-04-21 00:13] LABS: CO2 Tension 23.2 mmHg (35.0-45.0); Puncture Site RRA
[2020-04-21 00:40] LABS: #Basophils 0.1 thou/uL (0.0-0.2); #Eosinphils 0.1 thou/uL (0.0-0.7); #Lymphocytes 0.6 thou/uL (1.20-3.40); #Monocytes 0.3 thou/uL (0.11-0.59); #Neutrophils 14.9 thou/uL (1.40-6.50); %Basophils 0.8 % (0.0-1.0); %Eosinophils 0.5 % (0.0-10.0); %Lymphocytes 3.6 % (21.0-51.0); Hemoglobin 9.1 g/dL (14.0-18.0); Mean Corpuscular HGB CONC 32.2 g/dL (32.0-36.0); Mean Corpuscular Hemoglobin 33.7 pg (27.0-31.0); Mean Platelet Volume 10.5 fL (7.4-10.4); Platelet Count 166 thou/uL (130-400); RBC Distribution Width 12.9 % (11.5-14.5); Red Blood Cell (RBC) Count 2.69 mill/uL (4.70-6.10)
[2020-04-21 00:54] LABS: Lactic Acid 2.8 mmol/L (0.5-2.2)
[2020-04-21 00:55] LABS: Troponin I 0.092 ng/mL (< 0.028)
[2020-04-21 00:57] LABS: Albumin 3.7 g/dL (3.4-4.8); Anion Gap 16 mmol/L (10-20); BUN (Urea Nitrogen) 79 mg/dL (8.4-25.7); BUN/Creatinine Ratio 28.32; Calc. Creatinine Clearance 22 mL/min (70-130); Calcium 9.1 mg/dL (7.8-10.44); Carbon Dioxide 14 mmol/L (23-31); Chloride 112 mmol/L (98-107); Estimated GFR-MDRD 22; Glucose 176 mg/dL (83-110); Phosphorus 2.4 mg/dL (2.3-4.7); Potassium 3.3 mmol/L (3.5-5.1); Sodium 139 mmol/L (136-145)
[2020-04-21] MEDS ORDERED: Vancomycin 1.5 GRAM/300 ML BAG 1.5 GM in Premix Bag 1 BAG IVPB SCH (01:00)
[2020-04-21] MEDS: Furosemide 20 MG/2 ML VIAL SLOW IVP SCH (01:09)
[2020-04-21] MEDS: Meropenem 500 MG in Sodium Chloride 0.9% 100 ML IVPB SCH ×2 (01:36→14:43)
--- NOTE | 2020-04-21 05:08 | PDOC.EVN ---
Event Note - Event Note Event Note: green code was called by nurse due to respiratory distress. unpon my arrival patient was saturation 100% on a nonreabreather but was in significant respiratory distress w rr in the 30s to 40s. abgs were done which showed an 02 of 109, with significant aa gradient. patient was transfer to icu. cxr, LA bmp cbc were done. patient was treated with lasix 20mg iv which significant improvement of symptoms, ivfs were stoped. LA elevated at 2.8, at this moment administration of more ivfs would be detremental to patient respiratory status likely causing intubation, will do add mrsa coverage and replace electrolites.
--- NOTE | 2020-04-21 07:42 | RAD ---
XR Chest 1 View Portable History: Respiratory distress Comparison: Radiograph same day Findings: Since the prior exam the right IJ central venous catheter has been removed. No other centra l venous catheter is appreciated along the neck. Large effusions. Worsening airspace consolidation. No pneumothorax. Impression: No pneumothorax. No central venous catheter is appreciated.
--- NOTE | 2020-04-21 07:45 | RAD ---
XR Chest 1 View Portable History: IJ catheter placement Comparison: Radiograph same day Findings: New right IJ central venous catheter is in place. No pneumothorax. Large effusions. Multifo farideh airspace opacities. Impression: No pneumothorax. Right IJ central venous catheter tip projects over the inferior SVC.
[2020-04-21] MEDS: Ferrous Sulfate 325 MG TAB PO SCH ×2 (07:49→16:23)
[2020-04-21] MEDS: Docusate 100 MG CAP PO SCH (07:49)
[2020-04-21] MEDS: FLUoxetine HCl 10 MG CAP PO SCH (07:49)
[2020-04-21] MEDS: Carvedilol 6.25 MG TAB PO SCH ×2 (07:49→21:27)
[2020-04-21] MEDS: Calcitriol 0.25 MCG CAP PO SCH (07:49)
[2020-04-21] MEDS: Sodium Bicarbonate Tab 325 MG TAB PO SCH ×3 (07:50→21:27)
[2020-04-21] MEDS: Senokot S 8.6-50 MG TAB PO SCH ×2 (07:50→22:06)
[2020-04-21] MEDS: Lidocaine 5% Patch TD SCH (07:52)
[2020-04-21] MEDS: Heparin 5,000 UNITS/ML VIAL SC SCH ×3 (07:52→21:28)
--- NOTE | 2020-04-21 08:42 | PDOC.HOSPP ---
- Subjective Encounter Date: 04/21/20 Encounter Time: 12:00 Subjective: Patient with respiratory distress overnight. He had to have increased oxygen. IV fluids were stopped and given Lasix, antibiotics. Concern for volume overload from resuscitation. Doing well on high flow O2 currently. - Objective Vital Signs & Weight: Vital Signs (12 hours) Temp Pulse Pulse Pulse Resp Resp Resp 04/21/20 08:00 98.9 F 04/21/20 07:49 04/21/20 07:42 04/21/20 06:00 98.9 F 04/21/20 02:08 04/21/20 01:00 04/21/20 00:28 130 H 90 74 50 H 45 H 35 H BP BP BP Pulse Ox Pulse Ox Pulse Ox Pulse Ox 04/21/20 08:00 04/21/20 07:49 127/76 04/21/20 07:42 93 L 04/21/20 06:00 04/21/20 02:08 100 04/21/20 01:00 100 04/21/20 00:28 120/78 112/64 68 L 99 94 L Weight Admit Weight 169 lb Weight 169 lb 15.622 oz Most Recent Monitor Data Heart Rate from ECG 80 NIBP 112/63 NIBP BP-Mean 79 Respiration from ECG 25 SpO2 100 I&O: 04/20/20 04/21/20 04/22/20 06:59 06:59 06:59 Intake Total 1436 2150 425 Output Total 475 900 400 Balance 961 1250 25 Result Diagrams: 04/21/20 00:24 04/21/20 00:24 Additional Labs: Accuchecks 04/21/20 00:06 POC Glucose 188 H Hospitalist ROS - Review of Systems ROS unobtainable: due to mental status - Medication Medications: Active Medications Generic Name Dose Route Start Last Admin Trade Name Freq PRN Reason Stop Dose Admin Acetaminophen 650 mg 04/17/20 16:19 04/20/20 19:56 Tylenol PO 650 mg Q4H PRN Administration Headache/Fever/Mild Pain (1-3) Calcitriol 0.25 mcg 04/18/20 09:00 04/21/20 07:49 Rocaltrol PO Not Given DAILY STEPHANIA Carvedilol 6.25 mg 04/17/20 21:00 04/21/20 07:49 Coreg PO Not Given BID STEPHANIA Docusate Sodium 100 mg 04/18/20 09:00 04/21/20 07:49 Colace PO Not Given DAILY [facility] Epoetin Mateusz-epbx 7,500 unit 04/17/20 18:00 04/17/20 17:59 Retacrit SC 7,500 unit Q7D STEPHANIA Administration Ferrous Sulfate 325 mg 04/17/20 17:00 04/21/20 07:49 Feosol PO Not Given BID-[facility] Fluoxetine HCl 10 mg 04/18/20 09:00 04/21/20 07:49 Prozac PO Not Given DAILY [facility] Heparin Sodium (Porcine) 5,000 units 04/17/20 21:00 04/21/20 07:52 Heparin SC 5,000 units TID [facility] Administration Meropenem 500 mg/ Sodium 100 mls @ 200 mls/hr 04/18/20 14:00 04/21/20 01:36 Chloride IVPB 100 mls 0200,1400 [facility] Administration Lidocaine 1 patch 04/18/20 09:00 04/21/20 07:52 Lidoderm 5% Patch TD 1 patch DAILY [facility] Administration Miscellaneous Medication 1 each 04/18/20 21:00 04/20/20 19:56 Lidocaine Patch Removal TOP 1 each HS [facility] Administration Morphine Sulfate 2 mg 04/17/20 17:56 04/20/20 20:06 Morphine SLOW IVP 2 mg Q4H PRN Administration Severe Pain (7-10) Senna/Docusate Sodium 2 tab 04/17/20 21:00 04/21/20 07:50 Senokot S PO Not Given BID [facility] Sodium Bicarbonate 650 mg 04/17/20 21:00 04/21/20 07:50 Bicarbonate, Sodium PO Not Given TID [facility] - Exam General Appearance: NAD ENT: moist mucosa Heart: RRR, no murmur, no gallops, no rubs Respiratory - other findings: decent air movement throughout Gastrointestinal: soft, non-tender, non-distended, normal bowel sounds Psychiatric: normal affect, normal behavior Psychiatric - other findings: talking a bit more now Hosp A/P (1) Acute respiratory failure with hypoxia Code(s): J96.01 - ACUTE RESPIRATORY FAILURE WITH HYPOXIA Status: Acute (2) SIMONA (acute kidney injury) Code(s): N17.9 - ACUTE KIDNEY FAILURE, UNSPECIFIED Status: Acute (3) E coli bacteremia Code(s): R78.81 - BACTEREMIA; B96.20 - UNSP ESCHERICHIA COLI THE CAUSE OF DISEASES CLASSD ELSWHR Status: Acute (4) Sepsis Code(s): A41.9 - SEPSIS, UNSPECIFIED ORGANISM Status: Acute Qualifiers: Sepsis type: Escherichia coli Sepsis acute organ dysfunction status: with acute organ dysfunction Severe sepsis acute organ dysfunction type: acute renal failure Acute renal failure type: with acute tubular necrosis Severe sepsis shock status: without septic shock Qualified Code(s): A41.51 - Sepsis due to Escherichia coli [E. coli]; R65.20 - Severe sepsis without septic shock; N17.0 - Acute kidney failure with tubular necrosis (5) UTI (urinary tract infection) Status: Acute Qualifiers: Urinary tract infection type: acute pyelonephritis Qualified Code(s): N10 - Acute pyelonephritis (6) Severe dehydration Code(s): E86.0 - DEHYDRATION Status: Acute (7) Dementia Code(s): F03.90 - UNSPECIFIED DEMENTIA WITHOUT BEHAVIORAL DISTURBANCE Status: Chronic Qualifiers: Dementia type: unspecified type Dementia behavioral disturbance: without behavioral disturbance Qualified Code(s): F03.90 - Unspecified dementia without behavioral disturbance (8) Anemia Code(s): D64.9 - ANEMIA, UNSPECIFIED Status: Chronic Qualifiers: Anemia type: unspecified type Qualified Code(s): D64.9 - Anemia, unspecified (9) CKD (chronic kidney disease) Code(s): N18.9 - CHRONIC KIDNEY DISEASE, UNSPECIFIED Status: Chronic Qualifiers: Chronic kidney disease stage: stage 3 (moderate) Qualified Code(s): N18.3 - Chronic kidney disease, stage 3 (moderate) (10) Acute on chronic congestive heart failure Code(s): I50.9 - HEART FAILURE, UNSPECIFIED Status: Acute Plan: ECHO pending - Plan Patient with volume overload from sepsis fluid resuscitation. IV fluids stopped. Dr. De Leon consulted. is on meropenem, has 2/2 blood cultures growing e.coli, likely source is his kidney iv hydration appreciate help from , has T12 compression fracture with disc herniation, will be in clam shell Creatinine is stable high 2s covid 19 is -ve oral diet, encourage po intake PT/OT to mobilize as tolerated will need rehab or swing bed for dc plan prognosis guarded
--- NOTE | 2020-04-21 10:29 | PRG ---
DATE OF SERVICE: 04/21/2020 SUBJECTIVE: Mr. Dhillon is an 80-year-old white male, followed up by the Renal Service for his acute kidney injury on top of his chronic renal failure. Initially, we felt that he may have been volume depleted and was given IV hydration with improvement of the renal function. However, in the last 24 hours, he developed acute respiratory failure. The feeling is that he may have had aspiration, although a CHF was considered also as a possibility. Swallow study was done, which did not really show any overt aspiration. Chest x-ray done on April 21, 2020, showed large effusions with worsening airspace consolidation. IV fluid has been discontinued. This morning, the patient is more awake and more comfortable. He is less agitated. OBJECTIVE: VITAL SIGNS: Blood pressure is 123/82, heart rate 85, respiratory rate 23, O2 saturation is 93%. GENERAL: He is awake, comfortable, not in overt distress. SKIN: Adequate turgor. HEENT: Pinkish conjunctivae. Anicteric sclerae. No neck mass. No carotid bruits. No JVD. CHEST: No deformities. LUNGS: Decreased breath sounds. HEART: Normal sinus rhythm. No murmurs. No gallops. No rubs. ABDOMEN: Globular, soft, nontender. No masses. EXTREMITIES: No edema. No deformities. MEDICATIONS: Medications of April 21, 2020, were reviewed. LABORATORY DATA: Laboratories of April 21, 2020; white count 16, hemoglobin 9.1. Sodium 139, potassium 3.3, chloride 112, carbon dioxide 14, BUN 79, creatinine 2.79, glucose 176, calcium 9.1, phosphorus 2.4. Lactic acid is 2.8. Troponin-I 0.092. ASSESSMENT/PLAN: 1. Acute respiratory distress - either aspiration versus CHF. IV fluid is now on hold. He is on precautions for aspiration. 2. Acute kidney injury/chronic renal failure. Stable renal function. Creatinine is actually stabilizing, it has improved compared on the initial admission. There is no indication for any dialytic intervention. 3. Escherichia coli bacteremia, currently on IV meropenem. ID is following. 4. Chronic right hydronephrosis. Continuing supportive care. No indication for any surgical intervention. Agree with current management. Job ID: [id number]
[2020-04-21] MEDS: Morphine 2 MG/ML VIAL SLOW IVP PRN ×3 (10:45→22:57)
--- NOTE | 2020-04-21 12:33 | PRG ---
DATE OF SERVICE: 04/21/2020 SUBJECTIVE: This patient has been transferred to the ICU overnight. Apparently, had some respiratory trouble last night. It is unclear whether he had congestive heart failure or perhaps aspiration pneumonia. I think that it is being evaluated now in the ICU. It looks like his O2 sats currently good. He has been making good urine output. His urine is clear. He is still on meropenem for resistant Escherichia coli and sepsis. They initially brought him into the hospital. His white count is 16,000 today. His creatinine is actually down to 2.7, that is steadily improving to baseline. I was able to get some records on him from [facility]. As of June, his history was as follows: He had had a neoadjuvant chemotherapy and a left laparoscopic nephroureterectomy in 2014 for high-grade ureteral cancer. He had nonmuscle invasive bladder cancer recurrence and was treated with BCG and an intravesical chemotherapy and was unresponsive to it and for that reason, he underwent a robot assisted radical cystectomy and ileal conduit in November of [address] [facility]. Lymph nodes were negative. Incidental prostate cancer was found, but it was a high-grade prostate cancer at [facility]. He then developed in fall. 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 This is the last of the information I have on him from [facility]. I talked with his yesterday and I am switching his care here because of the difficulty in getting to [facility]. So, he does have a history of prostate cancer that was high-grade, I do not know if he has had a PSA done. We will look at maybe getting one at some point during this admission depending how he does in the ICU over the next day or 2. His creatinine is improving and coming back towards baseline despite solitary kidney with hydro. For that reason, I do not think he should look at having any type of a nephrostomy tube placed. Hopefully, his cardiovascular health will improve and his mental health will improve some too. I will follow along with you. Job ID: [id number]
--- NOTE | 2020-04-21 14:31 | CON ---
DATE OF CONSULTATION: 04/21/2020 REASON FOR CONSULTATION: Acute on chronic congestive heart failure. HISTORY OF PRESENT ILLNESS: Mr. Dhillon is a very pleasant 80-year-old gentleman whom I have seen and evaluated in the past. He has a history of likely ischemic cardiomyopathy and has opted not to proceed with coronary angiography due to advanced renal insufficiency. He has had a biventricular ICD placed. He has a history of bladder cancer, but states he has been in remission. He recently was admitted for acute kidney injury and metabolic acidosis in addition to severe dehydration. Analy pack was called yesterday due to low oxygenation and the patient being restless. The patient was transferred to the ICU and felt to be fluid overloaded. He has received fluid resuscitation. During my interview, he is somewhat agitated, but conversive. No specific current complaints. HOME MEDICATIONS: 1. Melatonin. 2. Eliquis. 3. vitamin. 4. Sodium bicarbonate. 5. Calcitriol. 6. Docusate. 7. Carvedilol. 8. Fluoxetine. PAST MEDICAL HISTORY: Includes renal cell cancer, bladder cancer, prostate cancer, atrial fibrillation, chronic systolic heart failure, bradycardia, multiple myeloma, left pleural effusion. PAST SURGICAL HISTORY: Biventricular ICD, diskectomy, cholecystectomy, appendectomy. SOCIAL HISTORY: No current tobacco use. ALLERGIES: NONE. REVIEW OF SYSTEMS: Ten-point review of systems is reviewed and as above, otherwise negative. PHYSICAL EXAMINATION: GENERAL: He does appear to have lost weight. VITAL SIGNS: Blood pressure 126/68, pulse 78, temperature afebrile. NEUROLOGIC: The patient is alert and oriented x3 with no focal neurologic deficits. HEENT: Sclerae without icterus. Mouth has moist mucous membranes with normal pallor. NECK: No JVD. Carotid upstroke brisk. No bruits bilaterally. LUNGS: Clear to auscultation with unlabored respirations. BACK: No scoliosis or kyphosis. CARDIAC: Regular rate and rhythm with normal S1 and S2. No S3 or S4 noted. No significant rubs, murmurs, thrills, or gallops noted throughout the precordium. PMI is not displaced. There is no parasternal heave. ABDOMEN: Soft, nontender, nondistended. No peritoneal signs present. No hepatosplenomegaly. No abnormal striae. EXTREMITIES: 2+ femoral and 2+ dorsalis pedis pulses. No cyanosis, clubbing, or edema. SKIN: No gross abnormalities. PERTINENT LABORATORY DATA: Hemoglobin 9.1, up from 8.3. Creatinine 2.79, up from 2.65. BNP of 3411. Echo Doppler, not resulted. LVEF 30% to 35%. ICD noted. IMPRESSION: 1. Acute on chronic systolic heart failure. 2. Respiratory failure. 3. Urinary tract infection. 4. Sepsis. RECOMMENDATIONS: May try and give small amounts of Lasix. We will consult with Dr. Tommy Schwartz. His creatinine has slightly worsened. He appears stable. It would be dictated by his current symptoms in addition to oxygenation. The patient does have multiple comorbidities as described above. Current cardiac medications include carvedilol 6.25 b.i.d. in addition to 20 mg IV Lasix. We will continue. Avoid RONNY inhibitor therapy and ARB due to renal insufficiency. Continue vancomycin per primary team. Job ID: [id number]
--- NOTE | 2020-04-21 18:54 | PRG ---
DATE OF SERVICE: 04/21/2020 SUBJECTIVE: Mr. Dhillon yet to be transferred to the ICU because of respiratory insufficiency, probably due to pulmonary edema. Chest x-ray is consistent with it. He is on high-flow nasal cannula supplementation. He has no chest pain, no abdominal pain, and no diarrhea. His IV fluids were discontinued and Lasix was administered. OBJECTIVE: VITAL SIGNS: T-max 99, blood pressure 118/70, heart rate 76, respiratory rate 22, and saturating at 100% now on high-flow nasal cannula. LUNGS: Faint basilar crackles. Diminished breath sounds on the left side. HEART: S1 and S2. ABDOMEN: Soft, not distended or tender. Ileal conduit. LABORATORY DATA: White cell count 16,000, hemoglobin 9.1, platelets 166, 93% neutrophils, and no bands. Creatinine was at 4.17 on arrival, is now down to 2.79. Lactic acid is 2.8. Troponin 0.092. 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 He is on meropenem. The possibility of aspiration pneumonia is considered but felt to be less likely. Job ID: [id number] MTDD
[2020-04-21] MEDS: Lidocaine Patch Removal 1 EACH TOP SCH (22:05)
[2020-04-22] MEDS ORDERED: Vancomycin 1 GM in Premix Bag 1 BAG IVPB SCH (01:00)
[2020-04-22] MEDS: Morphine 2 MG/ML VIAL SLOW IVP PRN ×3 (04:05→13:09)
[2020-04-22] MEDS: Meropenem 500 MG in Sodium Chloride 0.9% 100 ML IVPB SCH ×2 (04:07→13:09)
[2020-04-22 04:48] LABS: Albumin 3.2 g/dL (3.4-4.8); Anion Gap 13 mmol/L (10-20); BUN (Urea Nitrogen) 79 mg/dL (8.4-25.7); BUN/Creatinine Ratio 32.92; Calc. Creatinine Clearance 26 mL/min (70-130); Calcium 8.8 mg/dL (7.8-10.44); Carbon Dioxide 18 mmol/L (23-31); Chloride 118 mmol/L (98-107); Estimated GFR-MDRD 26; Glucose 122 mg/dL (83-110); Magnesium 1.7 mg/dL (1.6-2.6); Phosphorus 2.5 mg/dL (2.3-4.7); Potassium 3.6 mmol/L (3.5-5.1); Sodium 145 mmol/L (136-145)
[2020-04-22 05:01] LABS: Band 28 % (5-11); Hemoglobin 8.1 g/dL (14.0-18.0); Lymphocytes 4 % (21-51); MDiff Complete? YES; Mean Corpuscular HGB CONC 32.6 g/dL (32.0-36.0); Mean Corpuscular Hemoglobin 33.2 pg (27.0-31.0); Metamyelocyte 1 % (0-0); Monocytes 1 % (0-10); Neutrophil 66 % (42-75); Platelet Count 161 thou/uL (130-400); Platelet Morphology Comment Appears Adequate; Red Blood Cell (RBC) Count 2.43 mill/uL (4.70-6.10); White Blood Cell (WBC) Count 14.5 thou/uL (4.8-10.8)
[2020-04-22] MEDS: Carvedilol 6.25 MG TAB PO SCH ×2 (07:37→22:31)
[2020-04-22] MEDS: Calcitriol 0.25 MCG CAP PO SCH (07:37)
[2020-04-22] MEDS: Docusate 100 MG CAP PO SCH (07:37)
[2020-04-22] MEDS: Senokot S 8.6-50 MG TAB PO SCH ×2 (07:37→22:33)
[2020-04-22] MEDS: Ferrous Sulfate 325 MG TAB PO SCH ×2 (07:37→17:07)
[2020-04-22] MEDS: Sodium Bicarbonate Tab 325 MG TAB PO SCH ×3 (07:37→22:33)
[2020-04-22] MEDS: Heparin 5,000 UNITS/ML VIAL SC SCH ×3 (07:38→21:22)
[2020-04-22] MEDS: Lidocaine 5% Patch TD SCH (08:17)
[2020-04-22] MEDS: FLUoxetine HCl 10 MG CAP PO SCH (08:17)
[2020-04-22] MEDS ORDERED: Furosemide 20 MG/2 ML VIAL SLOW IVP SCH (09:00)
--- NOTE | 2020-04-22 09:02 | PDOC.HOSPP ---
- Subjective Encounter Date: 04/22/20 Encounter Time: 14:00 Subjective: Patient remains on high flow oxygen. Denies pain. States "I am doing ok". Otherwise mumbling and hard to understand. - Objective Vital Signs & Weight: Vital Signs (12 hours) Temp BP Pulse Ox 04/22/20 07:37 127/76 04/22/20 07:23 100 04/22/20 07:00 99 F 04/22/20 04:00 98.6 F 04/22/20 00:23 97 04/22/20 00:00 98.5 F 04/21/20 21:27 127/76 Weight Admit Weight 169 lb Weight 175 lb 0.752 oz Most Recent Monitor Data Heart Rate from ECG 70 NIBP 129/70 NIBP BP-Mean 89 Respiration from ECG 15 SpO2 100 I&O: 04/21/20 04/22/20 04/23/20 06:59 06:59 06:59 Intake Total 2150 1075 0 Output Total 900 1930 110 Balance 1250 -855 -110 Result Diagrams: 04/22/20 04:15 04/22/20 04:15 Hospitalist ROS - Review of Systems ROS unobtainable: due to mental status - Medication Medications: Active Medications Generic Name Dose Route Start Last Admin Trade Name Freq PRN Reason Stop Dose Admin Acetaminophen 650 mg 04/17/20 16:19 04/20/20 19:56 Tylenol PO 650 mg Q4H PRN Administration Headache/Fever/Mild Pain (1-3) Calcitriol 0.25 mcg 04/18/20 09:00 04/22/20 07:37 Rocaltrol PO 0.25 mcg DAILY STEPHANIA Administration Carvedilol 6.25 mg 04/17/20 21:00 04/22/20 07:37 Coreg PO 6.25 mg BID STEPHANIA Administration Docusate Sodium 100 mg 04/18/20 09:00 04/22/20 07:37 Colace PO 100 mg DAILY STEPHANIA Administration Epoetin Mateusz-epbx 7,500 unit 04/17/20 18:00 04/17/20 17:59 Retacrit SC 7,500 unit Q7D STEPHANIA Administration Ferrous Sulfate 325 mg 04/17/20 17:00 04/22/20 07:37 Feosol PO 325 mg BID-WM STEPHANIA Administration Fluoxetine HCl 10 mg 04/18/20 09:00 04/22/20 08:17 Prozac PO 10 mg DAILY STEPHANIA Administration Heparin Sodium (Porcine) 5,000 units 04/17/20 21:00 04/22/20 07:38 Heparin SC 5,000 units TID STEPHANIA Administration Meropenem 500 mg/ Sodium 100 mls @ 200 mls/hr 04/18/20 14:00 04/22/20 04:07 Chloride IVPB 100 mls 0200,1400 STEPHANIA Administration Lidocaine 1 patch 04/18/20 09:00 04/22/20 08:17 Lidoderm 5% Patch TD 1 patch DAILY STEPHANIA Administration Miscellaneous Medication 1 each 04/18/20 21:00 04/21/20 22:05 Lidocaine Patch Removal TOP 1 each HS STEPHANIA Administration Morphine Sulfate 2 mg 04/17/20 17:56 04/22/20 04:05 Morphine SLOW IVP 2 mg Q4H PRN Administration Severe Pain (7-10) Senna/Docusate Sodium 2 tab 04/17/20 21:00 04/22/20 07:37 Senokot S PO 2 tab BID STEPHANIA Administration Sodium Bicarbonate 650 mg 04/17/20 21:00 04/22/20 07:37 Bicarbonate, Sodium PO 650 mg TID STEPHANIA Administration - Exam General Appearance: NAD, awake alert ENT: moist mucosa ENT - other findings: high flow NC O2 in place Heart: RRR, no murmur, no gallops, no rubs Respiratory: CTAB, no wheezes, no rales, no ronchi Gastrointestinal: soft, non-tender, non-distended, normal bowel sounds Psychiatric: not oriented Hosp A/P (1) Acute respiratory failure with hypoxia Code(s): J96.01 - ACUTE RESPIRATORY FAILURE WITH HYPOXIA Status: Acute (2) SIMONA (acute kidney injury) Code(s): N17.9 - ACUTE KIDNEY FAILURE, UNSPECIFIED Status: Acute (3) E coli bacteremia Code(s): R78.81 - BACTEREMIA; B96.20 - UNSP ESCHERICHIA COLI THE CAUSE OF DISEASES CLASSD ELSWHR Status: Acute (4) Sepsis Code(s): A41.9 - SEPSIS, UNSPECIFIED ORGANISM Status: Acute Qualifiers: Sepsis type: Escherichia coli Sepsis acute organ dysfunction status: with acute organ dysfunction Severe sepsis acute organ dysfunction type: acute renal failure Acute renal failure type: with acute tubular necrosis Severe sepsis shock status: without septic shock Qualified Code(s): A41.51 - Sepsis due to Escherichia coli [E. coli]; R65.20 - Severe sepsis without septic shock; N17.0 - Acute kidney failure with tubular necrosis (5) UTI (urinary tract infection) Status: Acute Qualifiers: Urinary tract infection type: acute pyelonephritis Qualified Code(s): N10 - Acute pyelonephritis (6) Severe dehydration Code(s): E86.0 - DEHYDRATION Status: Acute (7) Dementia Code(s): F03.90 - UNSPECIFIED DEMENTIA WITHOUT BEHAVIORAL DISTURBANCE Status: Chronic Qualifiers: Dementia type: unspecified type Dementia behavioral disturbance: without behavioral disturbance Qualified Code(s): F03.90 - Unspecified dementia without behavioral disturbance (8) Anemia Code(s): D64.9 - ANEMIA, UNSPECIFIED Status: Chronic Qualifiers: Anemia type: unspecified type Qualified Code(s): D64.9 - Anemia, unspecified (9) CKD (chronic kidney disease) Code(s): N18.9 - CHRONIC KIDNEY DISEASE, UNSPECIFIED Status: Chronic Qualifiers: Chronic kidney disease stage: stage 3 (moderate) Qualified Code(s): N18.3 - Chronic kidney disease, stage 3 (moderate) (10) Acute on chronic congestive heart failure Code(s): I50.9 - HEART FAILURE, UNSPECIFIED Status: Acute - Plan Patient with volume overload from sepsis fluid resuscitation. IV fluids stopped. Dr. De Leon consulted. Improving with Lasix diuresis is on meropenem, has 2/2 blood cultures growing e.coli, likely source is his kidney iv hydration appreciate help from , has T12 compression fracture with disc herniation, will be in clam shell Creatinine continuing to improve. covid 19 is -ve oral diet, encourage po intake PT/OT to mobilize as tolerated will need rehab or swing bed for dc plan prognosis guarded
--- NOTE | 2020-04-22 10:09 | PRG ---
DATE OF SERVICE: SERVICE: Renal Medicine. SUBJECTIVE: Mr. Dhillon is an 80-year-old white male, followed up by the Renal Service for his acute kidney injury on top of his chronic renal failure. He had a superimposed hemodynamically-mediated renal dysfunction. He was empirically given IV hydration. However, this was said to have been complicated with volume overload. For that reason, we stopped the IV fluid. He is receiving some p.r.n. Lasix. He is being followed up by Cardiology. This morning, he has no new complaints. OBJECTIVE: VITAL SIGNS: Blood pressure is noted at 113/67, heart rate 82, respiratory rate 16, and O2 saturation 99%. GENERAL: He is noted to be comfortable, not in distress, on nasal BiPAP. HEENT: He has a slightly pale conjunctivae. Anicteric sclerae. No neck mass. No carotid bruits. No JVD. CHEST: No deformities. LUNGS: Clear breath sounds. HEART: Normal sinus rhythm. No murmur. No gallops. No rubs. ABDOMEN: Globular, soft, nontender. No masses. Positive for urostomy. EXTREMITIES: No edema. MEDICATIONS: Medications of April 22, 2020, reviewed. LABORATORY DATA: Laboratories of April 22, 2020; white count 14.5, hemoglobin 8.1. Sodium 145, potassium 3.6, chloride 118, carbon dioxide 18, BUN 79, creatinine 2.4, GFR 26 mL/minute, glucose 122, phosphorus 2.5, magnesium 1.7, albumin is 3.2. ASSESSMENT AND PLAN: 1. Acute kidney injury on top of his chronic renal failure, superimposed prerenal azotemia. Clinically improving renal function. No indication for any dialytic intervention. 2. Congestive heart failure, clinically improving on p.r.n. Lasix. Cardiology is following. 3. Anemia. Continuing weekly Epogen with the patient. 4. Overall agree with current management. Job ID: [id number]
--- NOTE | 2020-04-22 10:43 | RAD ---
Exam: Chest one view: HISTORY: Follow-up effusion COMPARISON: 04/21/2020 FINDINGS: Right jugulovenous catheter. Bilateral pleural effusions larger on the left side. Bilateral vascular congestion with some patchy interstitial and alveolar parenchymal changes in the perihilar regions bilaterally, possibly slightly worse. Left ICD. IMPRESSION: Persistent bilateral pleural effusions and possibly slightly progressive bilateral vascular congestio n.
--- NOTE | 2020-04-22 12:32 | CON ---
DATE OF CONSULTATION: HISTORY OF PRESENT ILLNESS: This is an 80-year-old demented gentleman, who has been in the hospital since . He is now in the ICU, reason for consult. He is on high-flow, saturations are 98%, pulse 79, blood pressure 116/74. He has E coli sepsis. Admission was prompted by frequent falls, urinary tract infection. Came to the hospital with weakness and back pain, further confusion. His O2 saturation in the ER was 92% on room air with respirations 16 and blood pressure 106/62. I am not able to get much history since he has dementia. PAST MEDICAL HISTORY: Atrial fibrillation, bladder cancer, cancer, congestive heart failure, dementia, and reflux. PAST SURGICAL HISTORY: Pacemaker, left nephrectomy, uterus surgery, gallbladder surgery, appendix, tendon repair, back surgery, tonsils, right kidney removed. SOCIAL HISTORY: Former smoker, quit smoking in 2013. Minimal alcohol intake. HOME MEDICATIONS: Include: 1. Bicarb. 2. Crestor. 3. Tramadol. 4. Coreg 6.25. 5. Eliquis 2.5 b.i.d. 6. Tylenol. 7. Melatonin. 8. He is now on meropenem. REVIEW OF SYSTEMS: Otherwise, unobtainable. PHYSICAL EXAMINATION: VITAL SIGNS: Pulse 73; sats 100%, on high-flow; respiratory rate 18; blood pressure CHEST: Decreased breath sounds without any wheezing. CARDIAC: Normal S1, S2. No gallops. ABDOMEN: No mass. LABORATORY DATA: Slightly improving renal function. X-ray shows left-sided effusion, which is present in October 2019. White count 15,000, H and H 8 and 24, platelet count 161. Creatinine is 2, BUN 79. IMPRESSION: 1. Respiratory failure, hypoxemia, left pleural effusion. 2. Probably underlying chronic obstructive pulmonary disease, congestive heart failure, sepsis, urinary tract infection, chronic back issues. PLAN: I have added some neb treatments, steroids to his present regime. A chest x-ray is being ordered. May consider doing a thoracentesis. Consultation note, 70 minutes, 50% direct patient care. Job ID: [id number]
--- NOTE | 2020-04-22 15:06 | CON ---
DATE OF CONSULTATION: 04/22/2020 SUBJECTIVE: Mr. Dhillon appears weak. He is more lucid today than yesterday. He is currently on high-flow oxygen. OBJECTIVE: VITAL SIGNS: Blood pressure 120/60, pulse 71, temperature afebrile. LUNGS: Mild crackles bilaterally. HEART: Regular rate and rhythm. ABDOMEN: Soft, nontender, nondistended. EXTREMITIES: No edema. PERTINENT LABORATORY DATA: Hemoglobin 8.1. Creatinine 2.4 down from 2.79. IMPRESSION: 1. Acute on chronic systolic heart failure. 2. Respiratory failure. 3. Chronic obstructive pulmonary disease. 4. Urinary tract infection with sepsis. RECOMMENDATIONS: 1. We will give additional 20 mg IV Lasix. High-flow oxygen recommendations per Dr. Kain Flores. 2. Continue low-dose carvedilol 6.25 b.i.d. 3. Avoid RONNY inhibitor therapy and ARB due to renal insufficiency. 4. Antibiotic therapy per primary team. Job ID: [id number]
[2020-04-22] MEDS: methylPREDNISolone Sod Succ 40 MG VIAL IVP SCH (21:22)
[2020-04-22] MEDS: Lidocaine Patch Removal 1 EACH TOP SCH (22:32)
[2020-04-22] MEDS: Pantoprazole 40 MG GRANULES PACKET PO SCH (22:33)
[2020-04-23] MEDS: Meropenem 500 MG in Sodium Chloride 0.9% 100 ML IVPB SCH ×2 (01:26→15:04)
[2020-04-23 05:33] LABS: Albumin 3.2 g/dL (3.4-4.8); Anion Gap 15 mmol/L (10-20); BUN (Urea Nitrogen) 77 mg/dL (8.4-25.7); BUN/Creatinine Ratio 35.81; Calc. Creatinine Clearance 0 mL/min (70-130); Calcium 8.9 mg/dL (7.8-10.44); Carbon Dioxide 18 mmol/L (23-31); Chloride 118 mmol/L (98-107); Estimated GFR-MDRD 30; Glucose 148 mg/dL (83-110); Phosphorus 3.6 mg/dL (2.3-4.7); Potassium 3.8 mmol/L (3.5-5.1); Sodium 147 mmol/L (136-145)
--- NOTE | 2020-04-23 07:51 | PRG ---
DATE OF SERVICE: 04/23/2020 SUBJECTIVE: This morning, he is coughing and choking. His eyes are open, still encephalopathic. OBJECTIVE: VITAL SIGNS: Pulse 78, saturations 100% on high-flow, respiratory rate 15, blood pressure 122/65. CHEST: Bilateral rhonchi and crackles. CARDIAC: Normal S1 and S2. No gallops. ABDOMEN: No masses. LABORATORY DATA: His creatinine is 2, BUN is 77. IMPRESSION: 1. Congestive heart failure. 2. Bilateral pleural effusion. 3. Azotemia. 4. Encephalopathy. 5. Dysphagia. 6. May be underlying chronic obstructive pulmonary disease. 7. Escherichia coli sepsis. PLAN: Continue present antibiotics, neb treatments, steroids. Hopefully, we can downsize his high-flow. Job ID: [id number]
--- NOTE | 2020-04-23 08:22 | PDOC.HOSPP ---
- Subjective Encounter Date: 04/23/20 Encounter Time: 11:00 Subjective: Patient still confused but more talkative today. Denies complaints. - Objective Vital Signs & Weight: Vital Signs (12 hours) Temp Pulse Resp BP Pulse Ox 04/23/20 07:31 100 04/23/20 07:29 74 12 04/23/20 03:00 98.2 F 04/23/20 01:49 100 04/23/20 01:48 77 16 100 04/22/20 23:00 98.5 F 04/22/20 22:31 127/76 Weight Admit Weight 169 lb Weight 2.783 oz Most Recent Monitor Data Heart Rate from ECG 73 NIBP 122/65 NIBP BP-Mean 84 Respiration from ECG 4 SpO2 97 I&O: 04/22/20 04/23/20 04/24/20 06:59 06:59 06:59 Intake Total 1075 400 Output Total 2740 7756 50 Balance -855 -2070 -50 Result Diagrams: 04/22/20 04:15 04/23/20 04:55 Hospitalist ROS - Review of Systems ROS unobtainable: due to mental status - Medication Medications: Active Medications Generic Name Dose Route Start Last Admin Trade Name Freq PRN Reason Stop Dose Admin Acetaminophen 650 mg 04/17/20 16:19 04/20/20 19:56 Tylenol PO 650 mg Q4H PRN Administration Headache/Fever/Mild Pain (1-3) Albuterol/Ipratropium 3 ml 04/22/20 13:00 04/23/20 07:29 Duoneb NEB 3 ml [id number] STEPHANIA Administration Calcitriol 0.25 mcg 04/18/20 09:00 04/22/20 07:37 Rocaltrol PO 0.25 mcg DAILY STEPHANIA Administration Carvedilol 6.25 mg 04/17/20 21:00 04/22/20 22:31 Coreg PO Not Given BID STEPHANIA Docusate Sodium 100 mg 04/18/20 09:00 04/22/20 07:37 Colace PO 100 mg DAILY STEPHANIA Administration Epoetin Mateusz-epbx 7,500 unit 04/17/20 18:00 04/17/20 17:59 Retacrit SC 7,500 unit Q7D STEPHANIA Administration Ferrous Sulfate 325 mg 04/17/20 17:00 04/22/20 17:07 Feosol PO 325 mg BID-WM STEPHANIA Administration Fluoxetine HCl 10 mg 04/18/20 09:00 04/22/20 08:17 Prozac PO 10 mg DAILY STEPHANIA Administration Heparin Sodium (Porcine) 5,000 units 04/17/20 21:00 04/22/20 21:22 Heparin SC 5,000 units TID STEPHANIA Administration Meropenem 500 mg/ Sodium 100 mls @ 200 mls/hr 04/18/20 14:00 04/23/20 01:26 Chloride IVPB 100 mls 0200,1400 STEPHANIA Administration Lidocaine 1 patch 04/18/20 09:00 04/22/20 08:17 Lidoderm 5% Patch TD 1 patch DAILY STEPHANIA Administration Methylprednisolone Sodium Succinate 40 mg 04/22/20 21:00 04/22/20 21:22 Solu-Medrol IVP 40 mg BID STEPHANIA Administration Miscellaneous Medication 1 each 04/18/20 21:00 04/22/20 22:32 Lidocaine Patch Removal TOP 1 each HS STEPHANIA Administration Morphine Sulfate 2 mg 04/17/20 17:56 04/22/20 13:09 Morphine SLOW IVP 2 mg Q4H PRN Administration Severe Pain (7-10) Pantoprazole Sodium 40 mg 04/22/20 21:00 04/22/20 22:33 Protonix PO Not Given HS [facility] Senna/Docusate Sodium 2 tab 04/17/20 21:00 04/22/20 22:33 Senokot S PO Not Given BID STEPHANIA Sodium Bicarbonate 650 mg 04/17/20 21:00 04/22/20 22:33 Bicarbonate, Sodium PO Not Given TID [facility] - Exam General Appearance: NAD, awake alert General - other findings: on high flow O2 ENT: moist mucosa Heart: RRR, no murmur, no gallops, no rubs Respiratory: CTAB, no wheezes, no rales, no ronchi Gastrointestinal: soft, non-tender, non-distended, normal bowel sounds Psychiatric: normal affect, normal behavior, oriented to person Hosp A/P (1) Acute respiratory failure with hypoxia Code(s): J96.01 - ACUTE RESPIRATORY FAILURE WITH HYPOXIA Status: Acute (2) SIMONA (acute kidney injury) Code(s): N17.9 - ACUTE KIDNEY FAILURE, UNSPECIFIED Status: Acute (3) E coli bacteremia Code(s): R78.81 - BACTEREMIA; B96.20 - UNSP ESCHERICHIA COLI THE CAUSE OF DISEASES CLASSD ELSWHR Status: Acute (4) Sepsis Code(s): A41.9 - SEPSIS, UNSPECIFIED ORGANISM Status: Acute Qualifiers: Sepsis type: Escherichia coli Sepsis acute organ dysfunction status: with acute organ dysfunction Severe sepsis acute organ dysfunction type: acute renal failure Acute renal failure type: with acute tubular necrosis Severe sepsis shock status: without septic shock Qualified Code(s): A41.51 - Sepsis due to Escherichia coli [E. coli]; R65.20 - Severe sepsis without septic shock; N17.0 - Acute kidney failure with tubular necrosis (5) UTI (urinary tract infection) Status: Acute Qualifiers: Urinary tract infection type: acute pyelonephritis Qualified Code(s): N10 - Acute pyelonephritis (6) Severe dehydration Code(s): E86.0 - DEHYDRATION Status: Acute (7) Dementia Code(s): F03.90 - UNSPECIFIED DEMENTIA WITHOUT BEHAVIORAL DISTURBANCE Status: Chronic Qualifiers: Dementia type: unspecified type Dementia behavioral disturbance: without behavioral disturbance Qualified Code(s): F03.90 - Unspecified dementia without behavioral disturbance (8) Anemia Code(s): D64.9 - ANEMIA, UNSPECIFIED Status: Chronic Qualifiers: Anemia type: unspecified type Qualified Code(s): D64.9 - Anemia, unspecified (9) CKD (chronic kidney disease) Code(s): N18.9 - CHRONIC KIDNEY DISEASE, UNSPECIFIED Status: Chronic Qualifiers: Chronic kidney disease stage: stage 3 (moderate) Qualified Code(s): N18.3 - Chronic kidney disease, stage 3 (moderate) (10) Acute on chronic congestive heart failure Code(s): I50.9 - HEART FAILURE, UNSPECIFIED Status: Acute - Plan Patient with volume overload from sepsis fluid resuscitation. IV fluids stopped. Dr. De Leon consulted. Improved with Lasix diuresis Wean O2 as directed by Dr. Flores is on meropenem, has 2/2 blood cultures growing e.coli, likely source is his kidney iv hydration appreciate help from , has T12 compression fracture with disc herniation, will be in clam shell Creatinine continuing to improve off IV fluids and after diuresis covid 19 is -ve oral diet, encourage po intake PT/OT to mobilize as tolerated will need rehab or swing bed for dc plan prognosis guarded
[2020-04-23] MEDS ORDERED: Furosemide 40 MG/4 ML VIAL ONE (09:18)
[2020-04-23] MEDS: Heparin 5,000 UNITS/ML VIAL SC SCH ×3 (09:26→21:59)
[2020-04-23] MEDS: methylPREDNISolone Sod Succ 40 MG VIAL IVP SCH ×2 (09:26→21:59)
[2020-04-23] MEDS: Carvedilol 6.25 MG TAB PO SCH ×2 (09:27→21:58)
--- NOTE | 2020-04-23 09:29 | PRG ---
DATE OF SERVICE: 04/23/2020 SUBJECTIVE: Mr. Dhillon seems to be doing slightly better today. He continues to be on high-flow oxygen, but is oxygenating well. His lungs appear better from a physical examination standpoint. He continues to have intermittent confusion. He states he did not sleep all night. OBJECTIVE: VITAL SIGNS: Blood pressure 122/65, pulse 73, temperature afebrile. LUNGS: Minimal crackles bilaterally. HEART: Irregularly irregular. ABDOMEN: Soft, nontender, nondistended. EXTREMITIES: No edema. Telemetry monitoring did show 2 runs of nonsustained VT. LABORATORY DATA: Hemoglobin 8.1. Creatinine is down to 2.1 from 2.4. IMPRESSION: 1. Acute on chronic congestive heart failure. 2. Chronic atrial fibrillation. 3. Status post ICD. 4. Urinary tract infection with sepsis. 5. Chronic obstructive pulmonary disease. 6. Remote tobacco abuse. RECOMMENDATIONS: We will give an additional dose of IV Lasix. We will likely transition to p.o. Lasix in the next day or two. I am pleased that his creatinine is improving. His heart rate and blood pressure are stable. We will continue Coreg. RONNY inhibitor and ARB are contraindicated due to renal insufficiency. Continue antibiotic therapy per primary team. From a CV standpoint, Mr. Dhillon has not been interested in proceeding with a more aggressive approach which would include coronary angiography. He has opted for medical therapy through the years. We will continue to honor his wishes. Job ID: [id number]
[2020-04-23] MEDS: Ferrous Sulfate 325 MG TAB PO SCH ×2 (09:37→17:54)
[2020-04-23] MEDS: Calcitriol 0.25 MCG CAP PO SCH (09:37)
[2020-04-23] MEDS: Sodium Bicarbonate Tab 325 MG TAB PO SCH ×3 (09:40→21:58)
[2020-04-23] MEDS ORDERED: Furosemide 40 MG/4 ML VIAL SLOW IVP SCH (09:45)
[2020-04-23] MEDS: FLUoxetine HCl 10 MG CAP PO SCH (09:45)
[2020-04-23] MEDS: Lidocaine 5% Patch TD SCH (09:48)
--- NOTE | 2020-04-23 09:50 | PRG ---
DATE OF SERVICE: 04/23/2020 HISTORY OF PRESENT ILLNESS: Mr. Dhillon is an 80-year-old white male, seen by the Renal Service for his acute kidney injury on top of his chronic renal failure. We felt that he had a superimposed hemodynamically-mediated renal dysfunction. Empiric volume repletion was given. He later on developed shortness of breath. The feeling is that this may be a volume overload versus an aspiration. IV fluid is now discontinued. His renal function continues to improve with the most recent creatinine now noted at 2.15, which is near his baseline. He voices no new complaints. He is less confused today. He has also been seen by Cardiology, who has recommended p.r.n. Lasix. The patient was also found to be bacteremic and currently on IV meropenem. OBJECTIVE: VITAL SIGNS: Blood pressure is noted at 122/65, heart rate 74, respiratory rate 12, O2 saturation 100% on nasal BiPAP. GENERAL: Awake, alert, comfortable, not in overt distress. SKIN: Adequate turgor. HEENT: He has slightly pale conjunctivae. Anicteric sclerae. No neck mass. No carotid bruits. No JVD. CHEST: No deformities. LUNGS: Clear breath sounds. HEART: Normal sinus rhythm. No murmur. No gallops. No rubs. ABDOMEN: Globular, soft, nontender. No masses. Positive for urostomy. EXTREMITIES: No edema. No deformities. MEDICATIONS: Of April 23, 2020, were reviewed. LABORATORY DATA: Of April 22, 2020: White count 14.5, hemoglobin 8.1. On April 23, 2020: Sodium 147, potassium 3.8, chloride 118, carbon dioxide 18, BUN 77, creatinine 2.15, glucose 148, GFR 30 mL/minute, calcium 8.9, phosphorus 3.6, albumin 3.2. ASSESSMENT AND PLAN: 1. Acute kidney injury/Chronic renal failure - superimposed hemodynamically mediated renal dysfunction, much improved over the last several days. The patient did receive IV hydration. No indication for any dialytic intervention. 2. Shortness of breath, clinically much improved. Multifactorial etiology - congestive heart failure versus aspiration pneumonia, currently on IV antibiotics. IV fluid has been placed on hold. He has received p.r.n. Lasix. 3. Leukocytosis/Escherichia coli bacteremia, currently on IV meropenem. The patient is doing better clinically. Overall, prognosis still remains guarded. Job ID: [id number] MTDD
[2020-04-23] MEDS: Docusate 100 MG CAP PO SCH (09:53)
[2020-04-23] MEDS: Senokot S 8.6-50 MG TAB PO SCH ×2 (09:53→21:58)
[2020-04-23] MEDS: Morphine 2 MG/ML VIAL SLOW IVP PRN (16:12)
[2020-04-23] MEDS: Pantoprazole 40 MG GRANULES PACKET PO SCH (21:58)
[2020-04-23] MEDS: Lidocaine Patch Removal 1 EACH TOP SCH (21:59)
[2020-04-24] MEDS: Meropenem 500 MG in Sodium Chloride 0.9% 100 ML IVPB SCH ×2 (01:56→14:16)
[2020-04-24 04:28] LABS: #Lymphocytes 0.4 thou/uL (1.20-3.40); #Monocytes 0.4 thou/uL (0.11-0.59); #Neutrophils 14.9 thou/uL (1.40-6.50); %Eosinophils 0.1 % (0.0-10.0); %Lymphocytes 2.5 % (21.0-51.0); %Monocytes 2.5 % (0.0-10.0); %Neutrophils 94.9 % (42.0-75.0); Mean Corpuscular HGB CONC 32.3 g/dL (32.0-36.0); Mean Corpuscular Hemoglobin 33.2 pg (27.0-31.0); Mean Platelet Volume 10.2 fL (7.4-10.4); Platelet Count 206 thou/uL (130-400); RBC Distribution Width 13.4 % (11.5-14.5); Red Blood Cell (RBC) Count 2.71 mill/uL (4.70-6.10); White Blood Cell (WBC) Count 15.7 thou/uL (4.8-10.8)
[2020-04-24 04:52] LABS: Anion Gap 15 mmol/L (10-20); BUN (Urea Nitrogen) 89 mg/dL (8.4-25.7); BUN/Creatinine Ratio 41.59; Calc. Creatinine Clearance 0 mL/min (70-130); Calcium 8.8 mg/dL (7.8-10.44); Carbon Dioxide 21 mmol/L (23-31); Chloride 118 mmol/L (98-107); Estimated GFR-MDRD 30; Glucose 179 mg/dL (83-110); Phosphorus 3.7 mg/dL (2.3-4.7); Potassium 3.5 mmol/L (3.5-5.1); Sodium 150 mmol/L (136-145)
--- NOTE | 2020-04-24 07:55 | RAD ---
XR Chest 1 View Portable History: Ventilated patient Comparison: Radiograph 2 days prior Findings: Right IJ central venous catheter tip sits at the inferior SVC. Large effusions are similar. Enteric tube tip below diaphragm although out of field of view. No pneumothorax. Multifocal airspace opacities are similar. Impression: Similar examination the chest. No significant interval improved lung aeration.
--- NOTE | 2020-04-24 08:47 | PDOC.HOSPP ---
- Subjective Encounter Date: 04/24/20 Encounter Time: 11:30 Subjective: Patient markedly improved. Weaned down to 2L NC. Denies any complaints. Still confused. - Objective Vital Signs & Weight: Vital Signs (12 hours) Temp Pulse Resp BP Pulse Ox 04/24/20 08:00 98.4 F 04/24/20 07:14 77 25 H 100 04/24/20 04:00 97.7 F 04/24/20 00:00 97.3 F L 04/23/20 23:22 72 14 100 04/23/20 21:58 118/70 Weight Admit Weight 169 lb Weight 2.783 oz Most Recent Monitor Data Heart Rate from ECG 75 NIBP 118/68 NIBP BP-Mean 84 Respiration from ECG 15 SpO2 100 I&O: 04/23/20 04/24/20 04/25/20 06:59 06:59 06:59 Intake Total 400 740 Output Total 2470 2390 120 Balance -2070 -1650 -120 Result Diagrams: 04/24/20 03:25 04/24/20 03:25 Hospitalist ROS - Review of Systems ROS unobtainable: due to mental status - Medication Medications: Active Medications Generic Name Dose Route Start Last Admin Trade Name Freq PRN Reason Stop Dose Admin Acetaminophen 650 mg 04/17/20 16:19 04/20/20 19:56 Tylenol PO 650 mg Q4H PRN Administration Headache/Fever/Mild Pain (1-3) Albuterol/Ipratropium 3 ml 04/22/20 13:00 04/24/20 07:14 Duoneb NEB 3 ml [id number] STEPHANIA Administration Calcitriol 0.25 mcg 04/18/20 09:00 04/23/20 09:37 Rocaltrol PO 0.25 mcg DAILY STEPHANIA Administration Carvedilol 6.25 mg 04/17/20 21:00 04/23/20 21:58 Coreg PO 6.25 mg BID STEPHANIA Administration Docusate Sodium 100 mg 04/18/20 09:00 04/23/20 09:53 Colace PO 100 mg DAILY STEPHANIA Administration Epoetin Mateusz-epbx 7,500 unit 04/17/20 18:00 04/17/20 17:59 Retacrit SC 7,500 unit Q7D STEPHANIA Administration Ferrous Sulfate 325 mg 04/17/20 17:00 04/23/20 17:54 Feosol PO 325 mg BID-WM STEPHANIA Administration Fluoxetine HCl 10 mg 04/18/20 09:00 04/23/20 09:45 Prozac PO 10 mg DAILY STEPHANIA Administration Heparin Sodium (Porcine) 5,000 units 04/17/20 21:00 04/23/20 21:59 Heparin SC 5,000 units TID STEPHANIA Administration Meropenem 500 mg/ Sodium 100 mls @ 200 mls/hr 04/18/20 14:00 04/24/20 01:56 Chloride IVPB 100 mls 0200,1400 STEPHANIA Administration Lidocaine 1 patch 04/18/20 09:00 04/23/20 09:48 Lidoderm 5% Patch TD 1 patch DAILY STEPHANIA Administration Miscellaneous Medication 1 each 04/18/20 21:00 04/23/20 21:59 Lidocaine Patch Removal TOP 1 each HS STEPHANIA Administration Morphine Sulfate 2 mg 04/17/20 17:56 04/23/20 16:12 Morphine SLOW IVP 2 mg Q4H PRN Administration Severe Pain (7-10) Pantoprazole Sodium 40 mg 04/22/20 21:00 04/23/20 21:58 Protonix PO 40 mg HS STEPHANIA Administration Senna/Docusate Sodium 2 tab 04/17/20 21:00 04/23/20 21:58 Senokot S PO 2 tab BID STEPHANIA Administration Sodium Bicarbonate 650 mg 04/17/20 21:00 04/23/20 21:58 Bicarbonate, Sodium PO 650 mg TID STEPHANIA Administration - Exam General Appearance: NAD, awake alert ENT: moist mucosa Heart: RRR, no murmur, no gallops, no rubs Respiratory: CTAB, no wheezes, no rales, no ronchi Gastrointestinal: soft, non-tender, non-distended, normal bowel sounds Psychiatric: normal affect, normal behavior, oriented to person Hosp A/P (1) Acute respiratory failure with hypoxia Code(s): J96.01 - ACUTE RESPIRATORY FAILURE WITH HYPOXIA Status: Acute (2) SIMONA (acute kidney injury) Code(s): N17.9 - ACUTE KIDNEY FAILURE, UNSPECIFIED Status: Acute (3) E coli bacteremia Code(s): R78.81 - BACTEREMIA; B96.20 - UNSP ESCHERICHIA COLI THE CAUSE OF DISEASES CLASSD ELSWHR Status: Acute (4) Sepsis Code(s): A41.9 - SEPSIS, UNSPECIFIED ORGANISM Status: Acute Qualifiers: Sepsis type: Escherichia coli Sepsis acute organ dysfunction status: with acute organ dysfunction Severe sepsis acute organ dysfunction type: acute renal failure Acute renal failure type: with acute tubular necrosis Severe sepsis shock status: without septic shock Qualified Code(s): A41.51 - Sepsis due to Escherichia coli [E. coli]; R65.20 - Severe sepsis without septic shock; N17.0 - Acute kidney failure with tubular necrosis (5) UTI (urinary tract infection) Status: Acute Qualifiers: Urinary tract infection type: acute pyelonephritis Qualified Code(s): N10 - Acute pyelonephritis (6) Severe dehydration Code(s): E86.0 - DEHYDRATION Status: Acute (7) Dementia Code(s): F03.90 - UNSPECIFIED DEMENTIA WITHOUT BEHAVIORAL DISTURBANCE Status: Chronic Qualifiers: Dementia type: unspecified type Dementia behavioral disturbance: without behavioral disturbance Qualified Code(s): F03.90 - Unspecified dementia without behavioral disturbance (8) Anemia Code(s): D64.9 - ANEMIA, UNSPECIFIED Status: Chronic Qualifiers: Anemia type: unspecified type Qualified Code(s): D64.9 - Anemia, unspecified (9) CKD (chronic kidney disease) Code(s): N18.9 - CHRONIC KIDNEY DISEASE, UNSPECIFIED Status: Chronic Qualifiers: Chronic kidney disease stage: stage 3 (moderate) Qualified Code(s): N18.3 - Chronic kidney disease, stage 3 (moderate) (10) Acute on chronic congestive heart failure Code(s): I50.9 - HEART FAILURE, UNSPECIFIED Status: Acute - Plan Patient with volume overload from sepsis fluid resuscitation. IV fluids stopped. Dr. De Leon consulted. Improved with Lasix diuresis Weaned O2 to 3L NC is on meropenem, has 2/2 blood cultures growing e.coli, likely source is his kidney iv hydration appreciate help from , has T12 compression fracture with disc herniation, will be in clam shell Creatinine continuing to improve off IV fluids and after diuresis covid 19 is -ve ST not cleared patient for diet yet, feeding tube placed, starting tube feeds, plan for MBS on Monday. Will order repeat Covid-19 on Monday in preparation. PT/OT to mobilize as tolerated will need rehab or swing bed for dc plan prognosis guarded
[2020-04-24] MEDS ORDERED: methylPREDNISolone Sod Succ 40 MG VIAL IVP SCH (09:00)
[2020-04-24] MEDS: Ferrous Sulfate 325 MG TAB PO SCH ×2 (09:07→15:53)
[2020-04-24] MEDS: Calcitriol 0.25 MCG CAP PO SCH (09:07)
[2020-04-24] MEDS: Heparin 5,000 UNITS/ML VIAL SC SCH ×3 (09:08→21:09)
[2020-04-24] MEDS: Docusate 100 MG CAP PO SCH (09:08)
[2020-04-24] MEDS: Carvedilol 6.25 MG TAB PO SCH ×2 (09:08→21:08)
[2020-04-24] MEDS: Lidocaine 5% Patch TD SCH (09:08)
[2020-04-24] MEDS: FLUoxetine HCl 10 MG CAP PO SCH (09:08)
--- NOTE | 2020-04-24 09:08 | PRG ---
DATE OF SERVICE: 04/24/2020 SUBJECTIVE: Emre Dhillon is an 80-year-old gentleman, who is off high flow this morning. OBJECTIVE: VITAL SIGNS: His sats are 100% on 3 L, pulse 77, respirations 12, blood pressure 114/81. I's and O's have been negative. CHEST: Bilateral crackles, rhonchi. CARDIAC: Normal S1, S2. No gallops. ABDOMEN: No masses. LABORATORY DATA: White count is 15,000, H and H are 9 and 27. BUN and creatinine are 89 and 2.14, sodium is 150. ASSESSMENT: 1. Chronic renal failure. 2. Congestive heart failure. 3. Respiratory failure. 4. Pleural effusion. 5. Congestive heart failure. PLAN: Pulmonary has nothing much to offer at this time. I will continue on aggressive cardiac care. He is on antibiotics as per Infectious Diseases renal failure. May have underlying chronic lung disease, though he is clearly much improved on steroids. We are going to follow him while in the ICU. Job ID: [id number]
[2020-04-24] MEDS: Senokot S 8.6-50 MG TAB PO SCH ×2 (09:09→21:08)
[2020-04-24] MEDS: Sodium Bicarbonate Tab 325 MG TAB PO SCH ×3 (09:09→21:07)
--- NOTE | 2020-04-24 09:34 | PRG ---
DATE OF SERVICE: SUBJECTIVE: Mr. Dhillon is an 80-year-old white male, who was seen by the Renal Service for his acute kidney injury on top of his chronic renal failure. He was felt initially to be volume depleted and empiric volume repletion was given. During the course, his creatinine improved, but he developed CHF. He is currently off IV fluid. In addition, he received p.r.n. Lasix. The issue was whether the acute shortness of breath may be related to aspiration. The patient is empirically on IV antibiotics. He feels better. He is less confused. No chest pain or shortness of breath. OBJECTIVE: VITAL SIGNS: Blood pressure is 118/68, heart rate 75, respiratory rate 15, O2 saturation 100%. GENERAL: The patient is awake, supine, comfortable, not in distress. SKIN: Adequate turgor. HEENT: Has pinkish conjunctivae. Anicteric sclerae. No neck mass. No carotid bruits. No JVD. CHEST: No deformities. LUNGS: Clear breath sounds. HEART: Normal sinus rhythm. No murmur. No gallops. No rubs. ABDOMEN: Globular, soft, nontender. No masses. Positive for urostomy bag. EXTREMITIES: No edema. No deformities. MEDICATIONS: Medications of April 24, 2020, were reviewed. LABORATORY DATA: Laboratories of April 24, 2020: White count 15.7, hemoglobin 9, hematocrit 27.9. Sodium 150, potassium 3.5, chloride 118, carbon dioxide 21, BUN 89, creatinine 2.14, glucose 179, calcium 8.8, phosphorus 3.7, albumin 3.0. ASSESSMENT AND PLAN: 1. Acute kidney injury on top of his chronic renal failure-he has a superimposed hemodynamically-mediated dysfunction. Much improved with recent volume repletion. There is no indication for any dialytic intervention. Continue current management. 2. Shortness of breath-multifactorial-? of aspiration versus congestive heart failure. Currently, IV fluid is off. 3. Anemia, continuing weekly Epogen. 4. Hypernatremia-free water 300 mL every 4 hours via NG tube. We will recheck basic metabolic panel and CBC in the a.m. Job ID: [id number]
--- NOTE | 2020-04-24 13:48 | PRG ---
DATE OF SERVICE: 04/24/2020 SUBJECTIVE: Mr. Dhillon overall appears to be improving. He is more lucid today. He also appears to have better color. No current complaints. He is off high-flow oxygen and on nasal cannula. He has had significant diuresis over the last several days. OBJECTIVE: VITAL SIGNS: Blood pressure 121/64, pulse 78, temperature afebrile. I's and O's, -4500 mL over the last 72 hours. LUNGS: Mild crackles bilaterally. HEART: Regular rate and rhythm. ABDOMEN: Soft, nontender, nondistended. EXTREMITIES: No edema. LABORATORY DATA: Hemoglobin 9.0. Creatinine 2.14. IMPRESSION: 1. Acute on chronic systolic heart failure. 2. History of ventricular tachycardia. 3. Renal insufficiency. 4. Urosepsis. RECOMMENDATIONS: 1. Recommend switching IV Lasix to p.o. Lasix. 2. Continue carvedilol. 3. Avoid RONNY inhibitor therapy and ARB due to renal insufficiency. Job ID: [id number]
[2020-04-24] MEDS: EPOETIN ALFA-EPBX (ESRD) 4,000 UNIT/ML VIAL SC SCH (18:39)
[2020-04-24] MEDS: Pantoprazole 40 MG GRANULES PACKET PO SCH (21:07)
[2020-04-24] MEDS: Lidocaine Patch Removal 1 EACH TOP SCH (21:21)
[2020-04-25] MEDS: Meropenem 500 MG in Sodium Chloride 0.9% 100 ML IVPB SCH ×2 (02:22→15:17)
[2020-04-25 04:51] LABS: #Lymphocytes 0.4 thou/uL (1.20-3.40); #Monocytes 1.2 thou/uL (0.11-0.59); #Neutrophils 14.3 thou/uL (1.40-6.50); %Basophils 0.1 % (0.0-1.0); %Eosinophils 0.1 % (0.0-10.0); %Lymphocytes 2.7 % (21.0-51.0); %Monocytes 7.3 % (0.0-10.0); %Neutrophils 89.8 % (42.0-75.0); Hemoglobin 8.9 g/dL (14.0-18.0); Mean Corpuscular HGB CONC 32.3 g/dL (32.0-36.0); Mean Corpuscular Hemoglobin 33.1 pg (27.0-31.0); Mean Platelet Volume 10.7 fL (7.4-10.4); Platelet Count 184 thou/uL (130-400); RBC Distribution Width 13.5 % (11.5-14.5); Red Blood Cell (RBC) Count 2.68 mill/uL (4.70-6.10); White Blood Cell (WBC) Count 15.9 thou/uL (4.8-10.8)
[2020-04-25 05:09] LABS: Anion Gap 13 mmol/L (10-20); BUN (Urea Nitrogen) 91 mg/dL (8.4-25.7); BUN/Creatinine Ratio 45.05; Calc. Creatinine Clearance 32 mL/min (70-130); Calcium 9.1 mg/dL (7.8-10.44); Carbon Dioxide 23 mmol/L (23-31); Chloride 118 mmol/L (98-107); Estimated GFR-MDRD 32; Glucose 138 mg/dL (83-110); Phosphorus 3.1 mg/dL (2.3-4.7); Potassium 3.4 mmol/L (3.5-5.1); Sodium 151 mmol/L (136-145)
--- NOTE | 2020-04-25 08:35 | RAD ---
SINGLE VIEW CHEST: Date: 04/25/2020 COMPARISON: 04/24/2020. HISTORY: Ventilated patient with respiratory failure. FINDINGS: Single view of the chest shows a cardiomediastinal silhouette which is upper limits of normal in size . The lines and tubes are unchanged in position. The pacemaker is unchanged in position. There is a s mall left pleural effusion with adjacent atelectasis versus infiltrate. IMPRESSION: Stable exam. POS: EAA
--- NOTE | 2020-04-25 08:42 | PRG ---
DATE OF SERVICE: 04/25/2020 SUBJECTIVE: Emre Dhillon is an 80-year-old gentleman. This morning, he looks better, less short of breath. In fact, he is off his O2. OBJECTIVE: VITAL SIGNS: His saturations are 94%, pulse 80, respiratory rate 23, and blood pressure 120/70. His I's and O's have been negative. CHEST: Bilateral crackles and wheezing. CARDIAC: Normal S1 and S2. No gallops. ABDOMEN: No masses. LABORATORY DATA: BUN and creatinine are elevated at 91 and 2 and sodium 151. ASSESSMENT AND PLAN: Respiratory failure, renal failure, congestive heart failure, left pleural effusion, and sepsis. Pulmonary montoya, he is stable enough to be transferred out of the ICU. Continue cardiac and renal care. Job ID: [id number]
--- NOTE | 2020-04-25 09:14 | PDOC.HOSPP ---
- Subjective Encounter Date: 04/25/20 Encounter Time: 10:00 Subjective: Patient weaned off O2 overnight. A bit agitated today but denies complaints. - Objective Vital Signs & Weight: Vital Signs (12 hours) Temp Pulse Resp Pulse Ox 04/25/20 06:47 80 23 H 94 L 04/25/20 04:00 98.3 F 04/25/20 00:15 77 24 H 99 04/25/20 00:00 98.1 F Weight Admit Weight 169 lb Weight 175 lb Most Recent Monitor Data Heart Rate from ECG 77 NIBP 120/71 NIBP BP-Mean 87 Respiration from ECG 18 SpO2 100 I&O: 04/24/20 04/25/20 04/26/20 06:59 06:59 06:59 Intake Total 740 3018 Output Total 2390 1330 Balance -1650 1688 Result Diagrams: 04/25/20 04:20 04/25/20 04:20 Hospitalist ROS - Review of Systems ROS unobtainable: due to mental status - Medication Medications: Active Medications Generic Name Dose Route Start Last Admin Trade Name Freq PRN Reason Stop Dose Admin Acetaminophen 650 mg 04/17/20 16:19 04/20/20 19:56 Tylenol PO 650 mg Q4H PRN Administration Headache/Fever/Mild Pain (1-3) Albuterol/Ipratropium 3 ml 04/22/20 13:00 04/25/20 06:47 Duoneb NEB 3 ml [id number] STEPHANIA Administration Calcitriol 0.25 mcg 04/18/20 09:00 04/24/20 09:07 Rocaltrol PO 0.25 mcg DAILY STEPHANIA Administration Carvedilol 6.25 mg 04/17/20 21:00 04/24/20 21:08 Coreg PO 6.25 mg BID STEPHANIA Administration Docusate Sodium 100 mg 04/18/20 09:00 04/24/20 09:08 Colace PO 100 mg DAILY STEPHANIA Administration Epoetin Mateusz-epbx 7,500 unit 04/17/20 18:00 04/24/20 18:39 Retacrit SC 7,500 unit Q7D STEPHANIA Administration Ferrous Sulfate 325 mg 04/17/20 17:00 04/24/20 15:53 Feosol PO 325 mg BID-WM STEPHANIA Administration Fluoxetine HCl 10 mg 04/18/20 09:00 04/24/20 09:08 Prozac PO 10 mg DAILY STEPHANIA Administration Heparin Sodium (Porcine) 5,000 units 04/17/20 21:00 04/24/20 21:09 Heparin SC 5,000 units TID STEPHANIA Administration Meropenem 500 mg/ Sodium 100 mls @ 200 mls/hr 04/18/20 14:00 04/25/20 02:22 Chloride IVPB 100 mls 0200,1400 STEPHANIA Administration Lidocaine 1 patch 04/18/20 09:00 04/24/20 09:08 Lidoderm 5% Patch TD 1 patch DAILY STEPHANIA Administration Miscellaneous Medication 1 each 04/18/20 21:00 04/24/20 21:21 Lidocaine Patch Removal TOP 1 each HS STEPHANIA Administration Morphine Sulfate 2 mg 04/17/20 17:56 04/23/20 16:12 Morphine SLOW IVP 2 mg Q4H PRN Administration Severe Pain (7-10) Pantoprazole Sodium 40 mg 04/22/20 21:00 04/24/20 21:07 Protonix PO 40 mg HS STEPHANIA Administration Senna/Docusate Sodium 2 tab 04/17/20 21:00 04/24/20 21:08 Senokot S PO 2 tab BID STEPHANIA Administration Sodium Bicarbonate 650 mg 04/17/20 21:00 04/24/20 21:07 Bicarbonate, Sodium PO 650 mg TID STEPHANIA Administration - Exam General Appearance: NAD, awake alert ENT: moist mucosa Heart: RRR, no murmur, no gallops, no rubs Respiratory: CTAB, no wheezes, no rales, no ronchi Gastrointestinal: soft, non-tender, non-distended, normal bowel sounds Psychiatric: normal affect, normal behavior, oriented to person Hosp A/P (1) Acute respiratory failure with hypoxia Code(s): J96.01 - ACUTE RESPIRATORY FAILURE WITH HYPOXIA Status: Acute (2) SIMONA (acute kidney injury) Code(s): N17.9 - ACUTE KIDNEY FAILURE, UNSPECIFIED Status: Acute (3) E coli bacteremia Code(s): R78.81 - BACTEREMIA; B96.20 - UNSP ESCHERICHIA COLI THE CAUSE OF DISEASES CLASSD ELSWHR Status: Acute (4) Sepsis Code(s): A41.9 - SEPSIS, UNSPECIFIED ORGANISM Status: Acute Qualifiers: Sepsis type: Escherichia coli Sepsis acute organ dysfunction status: with acute organ dysfunction Severe sepsis acute organ dysfunction type: acute renal failure Acute renal failure type: with acute tubular necrosis Severe sepsis shock status: without septic shock Qualified Code(s): A41.51 - Sepsis due to Escherichia coli [E. coli]; R65.20 - Severe sepsis without septic shock; N17.0 - Acute kidney failure with tubular necrosis (5) UTI (urinary tract infection) Status: Acute Qualifiers: Urinary tract infection type: acute pyelonephritis Qualified Code(s): N10 - Acute pyelonephritis (6) Severe dehydration Code(s): E86.0 - DEHYDRATION Status: Acute (7) Dementia Code(s): F03.90 - UNSPECIFIED DEMENTIA WITHOUT BEHAVIORAL DISTURBANCE Status: Chronic Qualifiers: Dementia type: unspecified type Dementia behavioral disturbance: without behavioral disturbance Qualified Code(s): F03.90 - Unspecified dementia without behavioral disturbance (8) Anemia Code(s): D64.9 - ANEMIA, UNSPECIFIED Status: Chronic Qualifiers: Anemia type: unspecified type Qualified Code(s): D64.9 - Anemia, unspecified (9) CKD (chronic kidney disease) Code(s): N18.9 - CHRONIC KIDNEY DISEASE, UNSPECIFIED Status: Chronic Qualifiers: Chronic kidney disease stage: stage 3 (moderate) Qualified Code(s): N18.3 - Chronic kidney disease, stage 3 (moderate) (10) Acute on chronic congestive heart failure Code(s): I50.9 - HEART FAILURE, UNSPECIFIED Status: Acute - Plan Patient with volume overload from sepsis fluid resuscitation. IV fluids stopped. Dr. De Leon consulted. Improved with Lasix diuresis Weaned O2 this morning is on meropenem, has 2/2 blood cultures growing e.coli, likely source is his kidney iv hydration appreciate help from , has T12 compression fracture with disc herniation, will be in clam shell Creatinine continuing to improve off IV fluids and after diuresis covid 19 is -ve ST not cleared patient for diet yet, feeding tube placed, starting tube feeds, plan for MBS on Monday. Will order repeat Covid-19 on Monday in preparation. PT/OT to mobilize as tolerated will need rehab or swing bed for dc plan prognosis guarded
[2020-04-25] MEDS: Morphine 2 MG/ML VIAL SLOW IVP PRN (09:51)
[2020-04-25] MEDS: Sodium Bicarbonate Tab 325 MG TAB PO SCH ×3 (09:52→20:30)
[2020-04-25] MEDS: Carvedilol 6.25 MG TAB PO SCH ×2 (09:52→20:29)
[2020-04-25] MEDS: Calcitriol 0.25 MCG CAP PO SCH (09:52)
[2020-04-25] MEDS: Ferrous Sulfate 325 MG TAB PO SCH ×2 (09:52→18:09)
[2020-04-25] MEDS: Lidocaine 5% Patch TD SCH (09:53)
[2020-04-25] MEDS: Senokot S 8.6-50 MG TAB PO SCH ×2 (09:53→23:14)
[2020-04-25] MEDS: Docusate 100 MG CAP PO SCH (09:53)
[2020-04-25] MEDS: Heparin 5,000 UNITS/ML VIAL SC SCH ×3 (10:09→20:29)
[2020-04-25] MEDS: FLUoxetine HCl 10 MG CAP PO SCH (10:19)
[2020-04-25] MEDS: Dextrose 5% w/ 20 mEq KCl 1,000 ML IV SCH ×2 (10:43→20:17)
--- NOTE | 2020-04-25 11:06 | PRG ---
DATE OF SERVICE: 04/25/2020 SUBJECTIVE: Mr. Dhillon is an 80-year-old white male, followed up by the Renal Service for his acute kidney injury on top of his chronic renal failure. On admission, he was empirically volume repleted, however, developed shortness of breath secondary to presumed CHF. IV fluid has been discontinued, however, in the last few days, his serum sodium has gone up and has become hypernatremic. He is currently on free water via NG tube. In addition, we have stopped IV hydration with this patient. Please note, creatinine is slowly improving and is almost baseline. He is also being treated for his E coli bacteremia. OBJECTIVE: VITAL SIGNS: Blood pressure is 120/71, heart rate 80, respiratory rate 23, and O2 saturations 94%. GENERAL: The patient is awake, comfortable, not in distress. SKIN: Adequate turgor. HEENT: Slightly pale conjunctivae. Anicteric sclerae. NECK: No mass. No carotid bruits. No JVD. CHEST: No deformities. LUNGS: Clear breath sounds. HEART: Normal sinus rhythm. No murmurs, gallops, or rubs. ABDOMEN: Globular, soft, and nontender. No masses. EXTREMITIES: No edema. No deformities. Positive for urostomy. MEDICATIONS: Medications of April 25, 2020, reviewed. LABORATORY DATA: Laboratories of April 25, 2020; white count 15.9 and hemoglobin 8.9. Sodium 151, potassium 3.4, chloride 118, carbon dioxide 23, BUN 91, creatinine 2.02, calcium 9.1, phosphorus 3.1, and albumin 3.0. ASSESSMENT AND PLAN: 1. Acute kidney injury - superimposed, hemodynamically-mediated renal dysfunction, improving renal function. Creatinine 2.02, is at baseline. No indication for any dialytic intervention. 2. Hypernatremia. Continuing free water via NG tube. We will start D5 water with 20 KCl and run at 125 mL/hours. 3. Escherichia coli bacteremia, currently on IV antibiotics. 4. Confusion - much improved. Agree with current management. Job ID: [id number]
--- NOTE | 2020-04-25 15:18 | PRG ---
DATE OF SERVICE: 04/25/2020 SUBJECTIVE: The patient is in the ICU. He is still on nasal cannula O2. No respiratory symptoms. No abdominal pain. The accuracy of review of systems is limited because of his confusional state. OBJECTIVE: VITAL SIGNS: T-max 98.8, blood pressure 120/76, pulse 74, respirations at 21, O2 saturation 96% on 2 L nasal cannula. GENERAL: Awake, establishes eye contact, follows commands, a little bit confused. LUNGS: With symmetric air entry with no obvious crackles or wheezing. HEART: S1 and S2. Regular rate. ABDOMEN: Soft. Not distended or tender. LABORATORY DATA: White cell count 15.9, hemoglobin 8.9, platelets 184 with 89% neutrophils. Creatinine is down to 2.02, marked improvement since admission. Sodium 151, potassium 3.4, CO2 of 23, albumin 3.0. Microbiology: As noted, ESBL E. coli in blood cultures, most likely from urinary tract. Chest x-ray from April 25, upper limits of normal cardiomediastinal silhouette, pacemaker, and small left pleural effusion. ASSESSMENT AND DISCUSSION: Urothelial cancer; left nephrectomy; ureterectomy; bladder resection; ileal conduit; twisted mesentery associated with hydroureter, right side; moderate hydronephrosis, right side; renal insufficiency with pyelonephritis; and extended-spectrum beta-lactamase Escherichia coli bacteremia. No urological intervention was felt to be needed by Dr. Jessica, particularly the thought of percutaneous nephrostomy was entertained, but again, no need felt to be present for the procedure, so he is being managed conservatively. He did develop some respiratory issues either due to aspiration pneumonia, but more likely due to pulmonary edema, and the plan is to continue with meropenem and probably will have to be continued anywhere from 2 to 4 weeks due to the special nature of his case and the presence of hydronephrosis. Job ID: [id number]
[2020-04-25] MEDS: Pantoprazole 40 MG GRANULES PACKET PO SCH (20:30)
[2020-04-25] MEDS: Lidocaine Patch Removal 1 EACH TOP SCH (21:29)
[2020-04-26] MEDS: Dextrose 5% w/ 20 mEq KCl 1,000 ML IV SCH ×3 (01:37→21:19)
[2020-04-26] MEDS: Meropenem 500 MG in Sodium Chloride 0.9% 100 ML IVPB SCH ×2 (02:10→14:23)
[2020-04-26 04:57] LABS: #Lymphocytes 0.5 thou/uL (1.20-3.40); #Monocytes 1.2 thou/uL (0.11-0.59); #Neutrophils 12.4 thou/uL (1.40-6.50); %Basophils 0.1 % (0.0-1.0); %Eosinophils 0.2 % (0.0-10.0); %Lymphocytes 3.3 % (21.0-51.0); %Monocytes 8.3 % (0.0-10.0); %Neutrophils 88.1 % (42.0-75.0); Hemoglobin 9.9 g/dL (14.0-18.0); Mean Corpuscular HGB CONC 31.8 g/dL (32.0-36.0); Mean Corpuscular Hemoglobin 33.1 pg (27.0-31.0); Mean Platelet Volume 10.6 fL (7.4-10.4); Platelet Count 170 thou/uL (130-400); RBC Distribution Width 13.5 % (11.5-14.5); Red Blood Cell (RBC) Count 2.98 mill/uL (4.70-6.10); White Blood Cell (WBC) Count 14.1 thou/uL (4.8-10.8)
[2020-04-26 05:17] LABS: Albumin 3.1 g/dL (3.4-4.8); Anion Gap 14 mmol/L (10-20); BUN (Urea Nitrogen) 75 mg/dL (8.4-25.7); BUN/Creatinine Ratio 41.67; Calc. Creatinine Clearance 36 mL/min (70-130); Calcium 8.9 mg/dL (7.8-10.44); Carbon Dioxide 20 mmol/L (23-31); Chloride 117 mmol/L (98-107); Estimated GFR-MDRD 36; Glucose 120 mg/dL (83-110); Phosphorus 2.5 mg/dL (2.3-4.7); Potassium 4.3 mmol/L (3.5-5.1); Sodium 147 mmol/L (136-145)
--- NOTE | 2020-04-26 09:57 | PDOC.HOSPP ---
- Subjective Encounter Date: 04/26/20 Encounter Time: 09:55 Subjective: confused, pulled out feeding tube - Objective Vital Signs & Weight: Vital Signs (12 hours) Temp Pulse Resp BP Pulse Ox 04/26/20 07:37 98.0 F 70 16 129/73 97 04/26/20 07:24 70 18 04/26/20 03:35 97.9 F 72 20 93 L 04/26/20 00:44 73 20 92 L 04/25/20 23:58 98.1 F 74 20 118/70 92 L Weight Admit Weight 169 lb Weight 175 lb Most Recent Monitor Data Heart Rate from ECG 72 NIBP 122/73 NIBP BP-Mean 89 Respiration from ECG 21 SpO2 92 I&O: 04/25/20 04/26/20 04/27/20 06:59 06:59 06:59 Intake Total 3018 3225 300 Output Total 1330 1155 Balance 1688 2070 300 Result Diagrams: 04/26/20 04:46 04/26/20 04:46 Additional Labs: Accuchecks 04/26/20 05:25 POC Glucose 137 H Hospitalist ROS - Medication Medications: Active Medications Generic Name Dose Route Start Last Admin Trade Name Freq PRN Reason Stop Dose Admin Acetaminophen 650 mg 04/17/20 16:19 04/20/20 19:56 Tylenol PO 650 mg Q4H PRN Administration Headache/Fever/Mild Pain (1-3) Albuterol/Ipratropium 3 ml 04/22/20 13:00 04/26/20 07:24 Duoneb NEB 3 ml [id number] STEPHANIA Administration Calcitriol 0.25 mcg 04/18/20 09:00 04/25/20 09:52 Rocaltrol PO 0.25 mcg DAILY STEPHANIA Administration Carvedilol 6.25 mg 04/17/20 21:00 04/25/20 20:29 Coreg PO 6.25 mg BID STEPHANIA Administration Docusate Sodium 100 mg 04/18/20 09:00 04/25/20 09:53 Colace PO Not Given DAILY STEPHANIA Epoetin Mateusz-epbx 7,500 unit 04/17/20 18:00 04/24/20 18:39 Retacrit SC 7,500 unit Q7D STEPHANIA Administration Ferrous Sulfate 325 mg 04/17/20 17:00 04/25/20 18:09 Feosol PO Not Given BID-[facility] Fluoxetine HCl 10 mg 04/18/20 09:00 04/25/20 10:19 Prozac PO 10 mg DAILY STEPHANIA Administration Heparin Sodium (Porcine) 5,000 units 04/17/20 21:00 04/25/20 20:29 Heparin SC 5,000 units TID STEPHANIA Administration Meropenem 500 mg/ Sodium 100 mls @ 200 mls/hr 04/18/20 14:00 04/26/20 02:10 Chloride IVPB 100 mls 0200,1400 STEPHANIA Administration Potassium Chloride/Dextrose 1,000 mls @ 125 mls/hr 04/25/20 09:30 04/26/20 01 :37 D5w W/ 20 Meq Kcl IV Not Given .Q8H STEPHANIA Lidocaine 1 patch 04/18/20 09:00 04/25/20 09:53 Lidoderm 5% Patch TD 1 patch DAILY STEPHANIA Administration Miscellaneous Medication 1 each 04/18/20 21:00 04/25/20 21:29 Lidocaine Patch Removal TOP 1 each HS STEPHANIA Administration Morphine Sulfate 2 mg 04/17/20 17:56 04/25/20 09:51 Morphine SLOW IVP 2 mg Q4H PRN Administration Severe Pain (7-10) Pantoprazole Sodium 40 mg 04/22/20 21:00 04/25/20 20:30 Protonix PO 40 mg HS STEPHANIA Administration Senna/Docusate Sodium 2 tab 04/17/20 21:00 04/25/20 23:14 Senokot S PO Not Given BID STEPHANIA Sodium Bicarbonate 650 mg 04/17/20 21:00 04/25/20 20:30 Bicarbonate, Sodium PO 650 mg TID STEPHANIA Administration - Exam General Appearance: awake alert Neck: no JVD Heart: RRR, no murmur Respiratory: CTAB Gastrointestinal: soft, non-tender, normal bowel sounds Extremities: no edema Hosp A/P (1) Bacteremia due to Klebsiella pneumoniae Code(s): R78.81 - BACTEREMIA; B96.1 - KLEBSIELLA PNEUMONIAE THE CAUSE OF DISEASES CLASSD ELSWHR Status: Acute (2) SIMONA (acute kidney injury) Code(s): N17.9 - ACUTE KIDNEY FAILURE, UNSPECIFIED Status: Acute (3) Sepsis Code(s): A41.9 - SEPSIS, UNSPECIFIED ORGANISM Status: Acute Qualifiers: Sepsis acute organ dysfunction status: with acute organ dysfunction Severe sepsis acute organ dysfunction type: acute renal failure Acute renal failure type: with acute tubular necrosis Severe sepsis shock status: without septic shock (4) Dementia Code(s): F03.90 - UNSPECIFIED DEMENTIA WITHOUT BEHAVIORAL DISTURBANCE Status: Chronic Qualifiers: Dementia type: unspecified type Dementia behavioral disturbance: without behavioral disturbance Qualified Code(s): F03.90 - Unspecified dementia without behavioral disturbance (5) Hypernatremia Code(s): E87.0 - HYPEROSMOLALITY AND HYPERNATREMIA Status: Acute - Plan receiving merop[enem iv 2-4 more weeks replace feeding tube Hx chf without meditech echo-will order discuss with family, etc
--- NOTE | 2020-04-26 12:14 | PRG ---
DATE OF SERVICE: 04/26/2020 SUBJECTIVE: Mr. Dhillon is an 80-year-old white male, followed up by the Renal Service for his acute kidney injury on top of his chronic renal failure. He has received volume depletion in the past and this has improved his renal function. He did develop shortness of breath and at that time we felt this could be from the volume overload with IV hydration as well as ? of aspiration. He was also diagnosed to have E coli bacteremia and currently on IV antibiotics. Renal function has stabilized in the last several days. He was also noted to be hypernatremic and for that reason, the patient has free water given via NG tube. At the same time, he was given D5 water yesterday to help improve the hypernatremia. No new complaints today. OBJECTIVE: VITAL SIGNS: Blood pressure is 129/73, heart rate 70, temperature 98, respiratory rate 16, O2 saturation 97% on room air. GENERAL: The patient is somewhat lethargic, but arousable and comfortable. SKIN: Decreased turgor. HEENT: Slightly pale conjunctivae. Anicteric sclerae. NECK: No neck mass. No carotid bruits. No JVD. CHEST: No deformities. LUNGS: Clear breath sounds. No wheezing. No crackles. HEART: Normal sinus rhythm. No murmur. No gallops. No rubs. ABDOMEN: Globular, soft, nontender. No masses. EXTREMITIES: No edema. No deformities. MEDICATIONS: Medications of April 26, 2020, was reviewed. LABORATORY DATA: Laboratories of April 26, 2020; white count 14.1, hemoglobin 9.9. Sodium 147, potassium 4.3, chloride 117, carbon dioxide 20, BUN 75, creatinine 1.8, glucose 120, calcium 2.9, phosphorus 2.5, albumin 3.1. ASSESSMENT/PLAN: 1. Acute kidney injury on top of his chronic renal failure, much improved renal function. Creatinine is now 1.8. Continue supportive care. No indication for any dialytic intervention. 2. Anemia. We will continue with the current Epogen regimen and ferrous sulfate with this patient. 3. Bacteremia, currently on IV antibiotics. 4. Hypernatremia, improving. Continue D5 water for the moment. Recheck CBC and basic metabolic panel in a.m. Job ID: [id number]
--- NOTE | 2020-04-26 12:25 | RAD ---
EXAM: Single view of the abdomen HISTORY: Dobbhoff tube placement COMPARISON: None FINDINGS: Single view of the abdomen shows a nonspecific, nonobstructive bowel gas pattern. There is a Dobbhoff tube with its tip in the stomach. No suspicious calcifications are seen. Vertebroplasty cement and degenerative changes are seen in the spine. IMPRESSION: Dobbhoff tube located in the stomach.
[2020-04-26] MEDS: Heparin 5,000 UNITS/ML VIAL SC SCH ×3 (12:49→21:14)
[2020-04-26] MEDS: Lidocaine 5% Patch TD SCH (12:51)
[2020-04-26] MEDS: FLUoxetine HCl 10 MG CAP PO SCH (12:52)
[2020-04-26] MEDS: Docusate 100 MG CAP PO SCH (12:52)
[2020-04-26] MEDS: Calcitriol 0.25 MCG CAP PO SCH (12:52)
[2020-04-26] MEDS: Carvedilol 6.25 MG TAB PO SCH ×2 (12:52→21:15)
[2020-04-26] MEDS: Ferrous Sulfate 325 MG TAB PO SCH ×2 (12:52→16:15)
[2020-04-26] MEDS: Senokot S 8.6-50 MG TAB PO SCH ×2 (12:52→21:16)
[2020-04-26] MEDS: Sodium Bicarbonate Tab 325 MG TAB PO SCH ×3 (12:53→21:15)
--- NOTE | 2020-04-26 12:56 | PRG ---
DATE OF SERVICE: SUBJECTIVE: This morning, he is resting comfortably with low-flow O2. OBJECTIVE: VITAL SIGNS: 3 L nasal O2 100%, temperature respiratory rate 19, blood pressure 130/71. GENERAL: He has a Dobbhoff feeding tube. He faced a swallow test. CHEST: Bilateral crackles. CARDIAC: Normal S1, S2. LABORATORY DATA: Creatinine is 1.80. White count 14,000. ASSESSMENT AND PLAN: Multiorgan failure; respiratory failure, improved secondary to congestive heart failure; pleural effusion; sepsis syndrome. Pulmonary is going to follow at a distance. Most of his issues appear to be cardiac in origin. Nothing additional to offer. Job ID: [id number]
[2020-04-26] MEDS ORDERED: Furosemide 100 MG/10 ML VIAL SLOW IVP SCH (15:00)
[2020-04-26 16:33] LABS: SARS-CoV-2 IgG Ab Non-Reactive (NonReactive); SARS-CoV-2 IgG Index 0.04 S/CO (< 1.40)
[2020-04-26] MEDS: Pantoprazole 40 MG GRANULES PACKET PO SCH (21:15)
[2020-04-26] MEDS: Lidocaine Patch Removal 1 EACH TOP SCH (23:04)
[2020-04-27] MEDS: Meropenem 500 MG in Sodium Chloride 0.9% 100 ML IVPB SCH ×2 (03:24→14:05)
[2020-04-27 05:43] LABS: Albumin 2.9 g/dL (3.4-4.8); Anion Gap 14 mmol/L (10-20); BUN (Urea Nitrogen) 68 mg/dL (8.4-25.7); BUN/Creatinine Ratio 40.24; Calc. Creatinine Clearance 38 mL/min (70-130); Calcium 8.3 mg/dL (7.8-10.44); Carbon Dioxide 21 mmol/L (23-31); Chloride 108 mmol/L (98-107); Estimated GFR-MDRD 39; Glucose 140 mg/dL (83-110); Phosphorus 2.6 mg/dL (2.3-4.7); Potassium 4.2 mmol/L (3.5-5.1); Sodium 139 mmol/L (136-145)
[2020-04-27 06:35] LABS: Band 3 % (5-11); Hemoglobin 10.1 g/dL (14.0-18.0); Lymphocytes 6 % (21-51); MDiff Complete? YES; Macrocytosis SLIGHT = 6-15 cells (100X) (0-5/hpf); Mean Corpuscular HGB CONC 32.9 g/dL (32.0-36.0); Mean Corpuscular Hemoglobin 33.9 pg (27.0-31.0); Mean Platelet Volume 10.3 fL (7.4-10.4); Monocytes 3 % (0-10); Neutrophil 87 % (42-75); Platelet Count 142 thou/uL (130-400); Platelet Morphology Comment Appears Adequate; RBC Distribution Width 13.5 % (11.5-14.5); Reactive Lymphocytes 1 % (0-10); Red Blood Cell (RBC) Count 2.97 mill/uL (4.70-6.10); White Blood Cell (WBC) Count 14.6 thou/uL (4.8-10.8)
[2020-04-27] MEDS: Dextrose 5% w/ 20 mEq KCl 1,000 ML IV SCH (07:11)
--- NOTE | 2020-04-27 08:16 | PDOC.HOSPP ---
- Subjective Encounter Date: 04/27/20 Encounter Time: 08:13 Subjective: responsive, no appropriate answers - Objective Vital Signs & Weight: Vital Signs (12 hours) Temp Pulse Resp BP BP Pulse Ox 04/27/20 07:15 98.2 F 69 24 H 102/63 98 04/27/20 06:44 71 20 99 04/27/20 04:50 98.0 F 65 17 97/62 95 04/27/20 01:25 98.9 F 85 18 115/68 99 04/27/20 00:45 82 18 92 L 04/26/20 21:15 102/61 Weight Admit Weight 169 lb Weight 175 lb Most Recent Monitor Data Heart Rate from ECG 72 NIBP 122/73 NIBP BP-Mean 89 Respiration from ECG 21 SpO2 92 I&O: 04/26/20 04/27/20 04/28/20 06:59 06:59 06:59 Intake Total 3225 1800 Output Total 1155 2049 Balance 2070 -250 Result Diagrams: 04/27/20 05:05 04/27/20 05:05 Hospitalist ROS - Medication Medications: Active Medications Generic Name Dose Route Start Last Admin Trade Name Freq PRN Reason Stop Dose Admin Acetaminophen 650 mg 04/17/20 16:19 04/20/20 19:56 Tylenol PO 650 mg Q4H PRN Administration Headache/Fever/Mild Pain (1-3) Albuterol/Ipratropium 3 ml 04/22/20 13:00 04/27/20 06:44 Duoneb NEB 3 ml [id number] STEPHANIA Administration Calcitriol 0.25 mcg 04/18/20 09:00 04/26/20 12:52 Rocaltrol PO 0.25 mcg DAILY STEPHANIA Administration Carvedilol 6.25 mg 04/17/20 21:00 04/26/20 21:15 Coreg PO 6.25 mg BID STEPHANIA Administration Docusate Sodium 100 mg 04/18/20 09:00 04/26/20 12:52 Colace PO 100 mg DAILY STEPHANIA Administration Epoetin Mateusz-epbx 7,500 unit 04/17/20 18:00 04/24/20 18:39 Retacrit SC 7,500 unit Q7D STEPHANIA Administration Ferrous Sulfate 325 mg 04/17/20 17:00 04/26/20 16:15 Feosol PO 325 mg BID-WM STEPHANIA Administration Fluoxetine HCl 10 mg 04/18/20 09:00 04/26/20 12:52 Prozac PO 10 mg DAILY STEPHANIA Administration Heparin Sodium (Porcine) 5,000 units 04/17/20 21:00 04/26/20 21:14 Heparin SC 5,000 units TID STEPHANIA Administration Meropenem 500 mg/ Sodium 100 mls @ 200 mls/hr 04/18/20 14:00 04/27/20 03:24 Chloride IVPB 100 mls 0200,1400 STEPHANIA Administration Lidocaine 1 patch 04/18/20 09:00 04/26/20 12:51 Lidoderm 5% Patch TD Not Given DAILY STEPHANIA Miscellaneous Medication 1 each 04/18/20 21:00 04/26/20 23:04 Lidocaine Patch Removal TOP Not Given HS STEPHANIA Morphine Sulfate 2 mg 04/17/20 17:56 04/25/20 09:51 Morphine SLOW IVP 2 mg Q4H PRN Administration Severe Pain (7-10) Pantoprazole Sodium 40 mg 04/22/20 21:00 04/26/20 21:15 Protonix PO 40 mg HS STEPHANIA Administration Senna/Docusate Sodium 2 tab 04/17/20 21:00 04/26/20 21:16 Senokot S PO 2 tab BID STEPHANIA Administration Sodium Bicarbonate 650 mg 04/17/20 21:00 04/26/20 21:15 Bicarbonate, Sodium PO 650 mg TID STEPHANIA Administration - Exam Neck: no JVD Heart: RRR, no murmur Respiratory - other findings: grossly clear Gastrointestinal: soft, non-tender, normal bowel sounds Extremities: no edema Hosp A/P (1) Bacteremia due to Klebsiella pneumoniae Code(s): R78.81 - BACTEREMIA; B96.1 - KLEBSIELLA PNEUMONIAE THE CAUSE OF DISEASES CLASSD ELSWHR Status: Acute (2) SIMONA (acute kidney injury) Code(s): N17.9 - ACUTE KIDNEY FAILURE, UNSPECIFIED Status: Acute (3) Sepsis Code(s): A41.9 - SEPSIS, UNSPECIFIED ORGANISM Status: Acute Qualifiers: Sepsis type: Escherichia coli Sepsis acute organ dysfunction status: with acute organ dysfunction Severe sepsis acute organ dysfunction type: acute renal failure Acute renal failure type: with acute tubular necrosis Severe sepsis shock status: without septic shock Qualified Code(s): A41.51 - Sepsis due to Escherichia coli [E. coli]; R65.20 - Severe sepsis without septic shock; N17.0 - Acute kidney failure with tubular necrosis (4) Dementia Code(s): F03.90 - UNSPECIFIED DEMENTIA WITHOUT BEHAVIORAL DISTURBANCE Status: Chronic Qualifiers: Dementia type: unspecified type Dementia behavioral disturbance: without behavioral disturbance Qualified Code(s): F03.90 - Unspecified dementia without behavioral disturbance (5) Hypernatremia Code(s): E87.0 - HYPEROSMOLALITY AND HYPERNATREMIA Status: Resolved (6) Acute on chronic systolic HF (heart failure) Code(s): I50.23 - ACUTE ON CHRONIC SYSTOLIC (CONGESTIVE) HEART FAILURE Status : Acute - Plan receiving merop[enem iv 2-4 more weeks feeding tube DC iv fluids, hypernatremia resolved lasix per tube daily
--- NOTE | 2020-04-27 08:42 | PRG ---
DATE OF SERVICE: 04/27/2020 SUBJECTIVE: Mr. Dhillon is an 80-year-old white male, who was admitted for sepsis, gram-negative bacteremia, currently on IV antibiotics and followed up by the Renal Service for his acute kidney injury on top of his chronic renal failure. Initially, we felt that he had hemodynamically-mediated renal dysfunction and he was given volume. He did develop shortness of breath from a possible volume overload versus aspiration. Yesterday, he was noted to be more mildly short of breath. He has been placed on maintenance furosemide. OBJECTIVE: VITAL SIGNS: Blood pressure is 102/63, heart rate 89, respiratory rate 24, temperature 98.2, O2 saturation 98%. GENERAL: Patient is awake, but lethargic, not in overt distress. SKIN: Adequate turgor. HEENT: He has pinkish conjunctivae. Anicteric sclerae. NECK: No neck mass. No carotid bruits. No JVD. CHEST: No deformities. LUNGS: Clear. Harsh breath sounds. HEART: Normal sinus rhythm. No murmur. No gallops. No rubs. ABDOMEN: Globular, soft, nontender. No masses. Positive for urostomy bag. EXTREMITIES: No edema. MEDICATIONS: Medications of April 27, 2020, was reviewed. LABORATORY DATA: Laboratories of April 27, 2020, white count 14.6, hemoglobin 10.1. Sodium 139, potassium 4.2, chloride 108, carbon dioxide 21, BUN 68, creatinine 1.69, glucose 140, calcium 8.3, phosphorus 2.6, albumin 2.9. ASSESSMENT AND PLAN: 1. Acute kidney injury/chronic renal failure-a superimposed hemodynamically-mediated dysfunction on top of his chronic renal failure. Creatinine is much improved at 1.69, which is his best value. No indication for any dialytic intervention. 2. Hypernatremia-much improved. Serum sodium is now normal. We will discontinue IV fluid. 3. Escherichia coli bacteremia, on IV antibiotics. Continue supportive care. 4. We will recheck basic metabolic, CBC in a.m. Job ID: [id number]
[2020-04-27] MEDS: Lidocaine 5% Patch TD SCH (08:50)
[2020-04-27] MEDS ORDERED: Furosemide 40 MG TAB PER TUBE SCH (09:00)
[2020-04-27] MEDS: Ferrous Sulfate 325 MG TAB PO SCH ×2 (09:05→16:22)
[2020-04-27] MEDS: Sodium Bicarbonate Tab 325 MG TAB PO SCH ×3 (09:06→21:16)
[2020-04-27] MEDS: Senokot S 8.6-50 MG TAB PO SCH ×2 (09:06→21:16)
[2020-04-27] MEDS: Docusate 100 MG CAP PO SCH (09:06)
[2020-04-27] MEDS: Calcitriol 0.25 MCG CAP PO SCH (09:06)
[2020-04-27] MEDS: Heparin 5,000 UNITS/ML VIAL SC SCH ×3 (09:06→21:16)
[2020-04-27] MEDS: FLUoxetine HCl 10 MG CAP PO SCH (09:06)
[2020-04-27] MEDS: Carvedilol 6.25 MG TAB PO SCH ×2 (09:06→21:16)
--- NOTE | 2020-04-27 11:02 | PRG ---
DATE OF SERVICE: 04/27/2020 SUBJECTIVE: Emre Dhillon failed swallow test again. He is going to have a modified barium swallow by Speech. OBJECTIVE: VITAL SIGNS: Temperature 98, blood pressure 102/61, saturations are 98% on 2 L, respiratory rate 24. GENERAL: He is awake, responsive. Denies any pain, discomfort. CHEST: No wheezing, no crackles. CARDIAC: Normal S1, S2. No gallops. ABDOMEN: Soft. LABORATORY DATA: Creatinine is 1.69. White count 91669. ASSESSMENT: Congestive heart failure, left pleural effusion, sepsis syndrome, E coli. PLAN: Pulmonary is going to follow at a distance. Continue cardiac care. Infectious Disease, antibiotics. Job ID: [id number]
--- NOTE | 2020-04-27 12:21 | PRG ---
DATE OF SERVICE: 04/27/2020 SUBJECTIVE: Mr. Dhillon was recently transferred out of the ICU. He is somnolent today. OBJECTIVE: VITAL SIGNS: Blood pressure 104/65, pulse 69, temperature 98.6. LUNGS: Rhonchi and rales bilaterally. HEART: Irregularly irregular. ABDOMEN: Soft, nontender, nondistended. EXTREMITIES: No edema. PERTINENT LABORATORY DATA: Hemoglobin 10.1, hematocrit 30.7. Creatinine 1.69. IMPRESSION: 1. Acute on chronic systolic heart failure. 2. Chronic renal insufficiency. 3. Status post implantable cardioverter defibrillator. 4. Sepsis. RECOMMENDATIONS: 1. Recommend restarting p.o. Lasix. The patient was on IV Lasix and did well with diuresis. He has not diuresed recently. 2. Continue carvedilol. Avoid RONNY inhibitor therapy and ARB. 3. Continue antibiotic therapy. Job ID: [id number]
[2020-04-27] MEDS: Pantoprazole 40 MG GRANULES PACKET PO SCH (21:16)
[2020-04-27] MEDS: Lidocaine Patch Removal 1 EACH TOP SCH (21:17)
[2020-04-28] MEDS: Meropenem 500 MG in Sodium Chloride 0.9% 100 ML IVPB SCH ×2 (01:47→14:31)
[2020-04-28 03:31] LABS: Actual Bicarbonate (HCO3a) 23.2 mEq/L (22-28); Base Excess (BEa) -0.3 mEq/L (-2.0 to +3.0); CO2 Tension 33.6 mmHg (35.0-45.0); Calcium, Ionized (arterial) 1.13 mmol/L (1.12-1.30); Carboxyhemoglobin (COHb) 0.7 gm% (0.0-3.0); Potassium - ABG Lab 4.03 mmol/L (3.70-5.30); pH, Arterial 7.46 (7.35-7.45)
[2020-04-28 03:34] LABS: O2 Tension (PaO2), arterial 52.4 mmHg (> 60.0)
[2020-04-28 03:42] LABS: #Eosinphils 0.1 thou/uL (0.0-0.7); #Lymphocytes 0.4 thou/uL (1.20-3.40); #Monocytes 0.8 thou/uL (0.11-0.59); #Neutrophils 11.8 thou/uL (1.40-6.50); %Basophils 0.3 % (0.0-1.0); %Eosinophils 1.1 % (0.0-10.0); %Lymphocytes 2.7 % (21.0-51.0); %Monocytes 6.3 % (0.0-10.0); %Neutrophils 89.7 % (42.0-75.0); Hemoglobin 9.2 g/dL (14.0-18.0); Mean Corpuscular Hemoglobin 33.9 pg (27.0-31.0); Mean Platelet Volume 9.9 fL (7.4-10.4); Platelet Count 163 thou/uL (130-400); RBC Distribution Width 13.6 % (11.5-14.5); Red Blood Cell (RBC) Count 2.72 mill/uL (4.70-6.10); White Blood Cell (WBC) Count 13.2 thou/uL (4.8-10.8)
[2020-04-28] MEDS ORDERED: Furosemide 20 MG/2 ML VIAL SLOW IVP SCH (04:00)
--- NOTE | 2020-04-28 04:03 | PDOC.EVN ---
Event Note - Event Note Event Note: Analy Cox called due to resp distress. Previously on NC @ 2L/min now on NRB with sats in 95% range. Remains lethargic and tachypneic. TF's stopped per nursing. Reviewed VS, Lungs with coarse sounds bilat, tachypneic, CV S1, S2, ABd soft, mild TTP, urostomy in place Labs: BMP, CBC, BNP, Trop pending PCXR: bilat edema, PM in place AB.45/33/52/23/87% EKG: V-pacing in 70's A/P: Acute hypoxic resp failure - multifactorial including pulm edema and volume overload, continue NRB, may consider BiPAP/high-flow NC, consider PE if no improvement in next 24h Acute CHF - suspected systolic with pending Echo, Lasix 20mg IV x 1 now, Albumin infusion q6h PNA - suspected, continue Meropenem E. coli Bacteremia - continue Meropenem Transfer to CCU
[2020-04-28 04:07] LABS: ALT (SGPT) 38 U/L (8-55); AST (SGOT) 33 U/L (5-34); Albumin 2.7 g/dL (3.4-4.8); Alkaline Phosphatase 94 U/L (40-110); Anion Gap 12 mmol/L (10-20); BUN (Urea Nitrogen) 66 mg/dL (8.4-25.7); BUN/Creatinine Ratio 35.11; Bilirubin, Total 0.7 mg/dL (0.2-1.2); Calc. Creatinine Clearance 34 mL/min (70-130); Calcium 8.2 mg/dL (7.8-10.44); Carbon Dioxide 24 mmol/L (23-31); Chloride 102 mmol/L (98-107); Estimated GFR-MDRD 35; Globulin 2.7 g/dL (2.4-3.5); Glucose 134 mg/dL (83-110); Phosphorus 3.1 mg/dL (2.3-4.7); Potassium 4.1 mmol/L (3.5-5.1); Protein, Total 5.4 g/dL (5.8-8.1); Sodium 134 mmol/L (136-145)
[2020-04-28 04:20] LABS: Lactic Acid 1.3 mmol/L (0.5-2.2)
[2020-04-28 04:35] LABS: Troponin I 0.067 ng/mL (< 0.028)
[2020-04-28] MEDS: Albumin 25% 25 GM/100 ML BOT IVPB SCH ×4 (04:47→22:04)
--- NOTE | 2020-04-28 07:52 | RAD ---
EXAM: Single view of the chest HISTORY: Respiratory failure COMPARISON: 04/25/2020 FINDINGS: Single view of the chest shows an enlarged but stable cardiomediastinal silhouette. The NG tube has been removed. The pacemaker and central venous catheter are unchanged in position. There is a small left pleural effusion. Bibasilar atelectasis versus infiltrates are seen. The bones are un remarkable IMPRESSION: Left pleural effusion and bibasilar atelectasis versus infiltrates
--- NOTE | 2020-04-28 07:57 | PDOC.HOSPP ---
- Subjective Encounter Date: 04/28/20 Encounter Time: 07:55 Subjective: poorly responsive - Objective Vital Signs & Weight: Vital Signs (12 hours) Temp Pulse Pulse Pulse Pulse Pulse Pulse 04/28/20 07:21 70 04/28/20 04:30 04/28/20 04:00 99.0 F 04/28/20 03:18 70 69 68 68 68 04/28/20 01:10 68 04/27/20 23:40 98.9 F 68 04/27/20 21:16 04/27/20 20:22 99.5 F 70 Resp Resp Resp Resp Resp Resp Resp 04/28/20 07:21 22 H 04/28/20 04:30 04/28/20 04:00 04/28/20 03:18 44 H 43 H 42 H 44 H 40 H 40 H 04/28/20 01:10 20 04/27/20 23:40 20 04/27/20 21:16 04/27/20 20:22 20 Resp Resp BP BP BP BP BP 04/28/20 07:21 04/28/20 04:30 04/28/20 04:00 04/28/20 03:18 40 H 36 H 101/60 98/62 96/59 L 98/59 L 04/28/20 01:10 04/27/20 23:40 04/27/20 21:16 104/55 L 04/27/20 20:22 BP BP Pulse Ox Pulse Ox Pulse Ox Pulse Ox Pulse Ox 04/28/20 07:21 04/28/20 04:30 100 04/28/20 04:00 04/28/20 03:18 92/56 L 91 L 92 L 94 L 94 L 04/28/20 01:10 98 04/27/20 23:40 97/58 L 92 L 04/27/20 21:16 04/27/20 20:22 104/55 L 94 L Pulse Ox Pulse Ox Pulse Ox Pulse Ox 04/28/20 07:21 04/28/20 04:30 04/28/20 04:00 04/28/20 03:18 95 99 98 100 04/28/20 01:10 04/27/20 23:40 04/27/20 21:16 04/27/20 20:22 Weight Admit Weight 169 lb Weight 175 lb Most Recent Monitor Data Heart Rate from ECG 70 NIBP 85/48 NIBP BP-Mean 60 Respiration from ECG 35 SpO2 100 I&O: 04/27/20 04/28/20 04/29/20 06:59 06:59 06:59 Intake Total 1800 1500 Output Total 2049 1575 Balance -250 -75 Result Diagrams: 04/28/20 03:31 04/28/20 03:31 Additional Labs: Accuchecks 04/28/20 03:15 POC Glucose 155 H Hospitalist ROS - Medication Medications: Active Medications Generic Name Dose Route Start Last Admin Trade Name Freq PRN Reason Stop Dose Admin Acetaminophen 650 mg 04/17/20 16:19 04/20/20 19:56 Tylenol PO 650 mg Q4H PRN Administration Headache/Fever/Mild Pain (1-3) Albumin Human 25 gm 04/28/20 04:00 04/28/20 04:47 Albumin 25% IVPB 04/29/20 04:01 25 gm Q6H STEPHANIA Administration Albuterol/Ipratropium 3 ml 04/22/20 13:00 04/28/20 07:21 Duoneb NEB 3 ml [id number] STEPHANIA Administration Calcitriol 0.25 mcg 04/18/20 09:00 04/27/20 09:06 Rocaltrol PO 0.25 mcg DAILY STEPHANIA Administration Carvedilol 6.25 mg 04/17/20 21:00 04/27/20 21:16 Coreg PO 6.25 mg BID STEPHANIA Administration Docusate Sodium 100 mg 04/18/20 09:00 04/27/20 09:06 Colace PO 100 mg DAILY STEPHANIA Administration Epoetin Mateusz-epbx 7,500 unit 04/17/20 18:00 04/24/20 18:39 Retacrit SC 7,500 unit Q7D STEPHANIA Administration Ferrous Sulfate 325 mg 04/17/20 17:00 04/27/20 16:22 Feosol PO 325 mg BID-WM STEPHANIA Administration Fluoxetine HCl 10 mg 04/18/20 09:00 04/27/20 09:06 Prozac PO 10 mg DAILY STEPHANIA Administration Heparin Sodium (Porcine) 5,000 units 04/17/20 21:00 04/27/20 21:16 Heparin SC 5,000 units TID STEPHANIA Administration Meropenem 500 mg/ Sodium 100 mls @ 200 mls/hr 04/18/20 14:00 04/28/20 01:47 Chloride IVPB 100 mls 0200,1400 STEPHANIA Administration Lidocaine 1 patch 04/18/20 09:00 04/27/20 08:50 Lidoderm 5% Patch TD Not Given DAILY STEPHANIA Miscellaneous Medication 1 each 04/18/20 21:00 04/27/20 21:17 Lidocaine Patch Removal TOP Not Given HS STEPHANIA Ondansetron HCl 4 mg 04/17/20 16:19 04/28/20 03:05 Zofran IVP 4 mg Q6H PRN Administration Nausea/Vomiting Pantoprazole Sodium 40 mg 04/22/20 21:00 04/27/20 21:16 Protonix PO 40 mg HS STEPHANIA Administration Senna/Docusate Sodium 2 tab 04/17/20 21:00 04/27/20 21:16 Senokot S PO 2 tab BID STEPHANIA Administration Sodium Bicarbonate 650 mg 04/17/20 21:00 04/27/20 21:16 Bicarbonate, Sodium PO 650 mg TID STEPHANIA Administration - Exam Neck: no JVD Heart: RRR Respiratory - other findings: diffuse rhonchi/rales Gastrointestinal: soft, non-tender, normal bowel sounds Extremities: no edema Hosp A/P (1) Hypotension Status: Acute Qualifiers: Hypotension type: unspecified hypotension type Qualified Code(s): I95.9 - Hypotension, unspecified (2) Acute and chronic respiratory failure with hypoxia Code(s): J96.21 - ACUTE AND CHRONIC RESPIRATORY FAILURE WITH HYPOXIA Status: Acute (3) Bacteremia due to Klebsiella pneumoniae Code(s): R78.81 - BACTEREMIA; B96.1 - KLEBSIELLA PNEUMONIAE THE CAUSE OF DISEASES CLASSD ELSWHR Status: Acute (4) SIMONA (acute kidney injury) Code(s): N17.9 - ACUTE KIDNEY FAILURE, UNSPECIFIED Status: Acute (5) Sepsis Code(s): A41.9 - SEPSIS, UNSPECIFIED ORGANISM Status: Acute Qualifiers: Sepsis type: Escherichia coli Sepsis acute organ dysfunction status: with acute organ dysfunction Severe sepsis acute organ dysfunction type: acute renal failure Acute renal failure type: with acute tubular necrosis Severe sepsis shock status: without septic shock Qualified Code(s): A41.51 - Sepsis due to Escherichia coli [E. coli]; R65.20 - Severe sepsis without septic shock; N17.0 - Acute kidney failure with tubular necrosis (6) Dementia Code(s): F03.90 - UNSPECIFIED DEMENTIA WITHOUT BEHAVIORAL DISTURBANCE Status: Chronic Qualifiers: Dementia type: unspecified type Dementia behavioral disturbance: without behavioral disturbance Qualified Code(s): F03.90 - Unspecified dementia without behavioral disturbance (7) Hypernatremia Code(s): E87.0 - HYPEROSMOLALITY AND HYPERNATREMIA Status: Resolved (8) Acute on chronic systolic HF (heart failure) Code(s): I50.23 - ACUTE ON CHRONIC SYSTOLIC (CONGESTIVE) HEART FAILURE Status : Acute - Plan acute decompensation sys HF hypotensive post iv lasix renal fcn adveerse need Card/ Renal inpt start dopamine
[2020-04-28] MEDS ORDERED: DOPamine 400 MG/D5W 250 ML 250 ML ONE (08:03)
[2020-04-28] MEDS: Furosemide 40 MG TAB PER TUBE SCH (08:38)
[2020-04-28] MEDS: Carvedilol 6.25 MG TAB PO SCH ×2 (08:38→22:04)
[2020-04-28] MEDS: Calcitriol 0.25 MCG CAP PO SCH (08:38)
[2020-04-28] MEDS: Ferrous Sulfate 325 MG TAB PO SCH ×2 (08:38→16:27)
[2020-04-28] MEDS: Sodium Bicarbonate Tab 325 MG TAB PO SCH ×3 (08:39→22:05)
[2020-04-28] MEDS: FLUoxetine HCl 10 MG CAP PO SCH (08:39)
[2020-04-28] MEDS: Senokot S 8.6-50 MG TAB PO SCH ×2 (08:39→22:05)
[2020-04-28] MEDS: Docusate 100 MG CAP PO SCH (08:39)
[2020-04-28] MEDS ORDERED: DOBUTamine 250 MG/20 ML VIAL ONE (10:08)
[2020-04-28] MEDS: Heparin 5,000 UNITS/ML VIAL SC SCH ×3 (10:11→22:04)
[2020-04-28] MEDS: Lidocaine 5% Patch TD SCH (10:16)
--- NOTE | 2020-04-28 11:24 | PRG ---
DATE OF SERVICE: 04/28/2020 SUBJECTIVE: Emre Dhillon this morning, he is more encephalopathic. He was transferred back to the ICU. OBJECTIVE: VITAL SIGNS: His pulse is 75, blood pressure is 100/60, saturations 100% on high-flow, respiratory rate 32. GENERAL: He is clearly encephalopathic. His I's and O's have been poor. CHEST: Rhonchi and crackles. CARDIAC: Sinus. ABDOMEN: Soft. LABORATORY DATA: X-ray shows worsening left-sided pleural effusion. PO2 is 52, pCO2 of 36, pH 7.46 on 100%. Creatinine is 1.2, BUN 66. White count 13,000, H and H are 9 and 28, platelet count 163. BNP is 435. IMPRESSION: Respiratory failure, congestive heart failure, pleural effusion, advanced age, azotemia. Family wants everything to be done and they are going to discuss with their respiratory care program director for long-term prognosis. He may require intubation if they reassure, I think his prognosis is grave. Pulmonary montoya, he is still on broad-spectrum antibiotics. He was started on Dobutrex by his respiratory care program director. He is on neb treatments. He has fluids with broad-spectrum antibiotics. One-half hour of critical care time. Job ID: [id number]
[2020-04-28] MEDS: DOBUTamine 500 mg/250 ml 500 MG in Premix Bag 1 BAG IVPB SCH (11:49)
[2020-04-28] MEDS: DOPamine 400 MG/D5W 250 ML 250 ML IVPB SCH (14:36)
--- NOTE | 2020-04-28 17:52 | CON ---
DATE OF CONSULTATION: CRITICAL CARE TIME: 40 minutes. HISTORY OF PRESENT ILLNESS: Mr. Dhillon was transferred to the ICU early this morning. He had continued respiratory distress. Analy pack was called. During my visit, he is somnolent. He barely awakens to voice. He has been hypotensive after given Lasix for potential heart failure. His creatinine appeared stable, but has had a slight increase overnight. PHYSICAL EXAMINATION: VITAL SIGNS: Blood pressure 108/45, pulse 70, respirations 20. LUNGS: Coarse rhonchi and rales bilaterally. HEART: Regular rate and rhythm. ABDOMEN: Soft, nontender, and nondistended. EXTREMITIES: No edema. PERTINENT LABORATORY DATA: Creatinine 1.88. Hemoglobin 9.2. IMPRESSION: 1. [id number] systolic heart failure. 2. Chronic kidney disease. 3. Sepsis. 4. Cardiogenic shock. RECOMMENDATIONS: Mr. Nicole has required Dobutrex in addition to dopamine for blood pressure support. Would continue the above in addition to IV antibiotics. I was called on Mr. Dhillon's bedside late this morning after rounding on him early this morning. I spoke to his and daughter at length about his current status. I did state that based on his comorbidities I did not expect him to survive this most recent hospitalization. After much discussion, the family has opted to proceed with DNR status. They would not like to have him intubated or proceed with medications to keep his blood pressure elevated. No compressions to be formed. At this point, we will continue to honor their wishes and we will treat him otherwise. Job ID: [id number]
--- NOTE | 2020-04-28 19:37 | PRG ---
DATE OF SERVICE: 04/28/2020 SERVICE: Renal medicine. SUBJECTIVE: Mr. Dhillon is an 80-year-old white male, followed up by the Renal Service for his chronic renal failure. He was initially admitted with superimposed acute kidney injury that was hemodynamically-mediated renal dysfunction. Empiric volume repletion was done - crystalloid and colloids. This improved his renal function. However, during the course of his hospitalization, he developed respiratory distress. It was felt that it might be related to underlying CHF and/or aspiration pneumonia. He was transferred out to the floor when his hemodynamics stabilized. However, last night, he developed acute respiratory distress, and for this reason, he was again transferred back to the ICU. Empiric diuretics were given. He was evaluated by Pulmonary and Cardiology. Overall, prognosis remains guarded with this patient. Chest x-ray showed worsening pleural effusion. OBJECTIVE: VITAL SIGNS: Blood pressure is noted at 104/55 with a heart rate of 70, respiratory rate 25, O2 saturation 98% - on high-flow nasal CPAP. GENERAL: The patient is arousable, lethargic, not in overt distress. SKIN: Adequate turgor. HEENT: He has a slightly pale conjunctivae. Anicteric sclerae. NECK: No neck mass. No carotid bruits. No JVD. CHEST: No deformities. LUNGS: Decreased breath sounds. HEART: Normal sinus rhythm. No murmur. No gallops. No rubs. ABDOMEN: Globular, soft, nontender. No masses. EXTREMITIES: No edema. No deformities. MEDICATIONS: Medications of April 28, 2020, were reviewed. LABORATORY DATA: Laboratories of April 28, 2020: White count 13.2, hemoglobin 9.2. Sodium 134, potassium 4.1, chloride 102, carbon dioxide 24, BUN 66, creatinine 1.88, glucose 134, phosphorus 3.1, calcium 8.2, albumin 2.7. BNP is 436. Troponin I of 0.067. ASSESSMENT AND PLAN: 1. Acute respiratory distress - multifactorial etiology, possibility of a recurrent congestive heart failure. The patient was started on IV dobutamine and was given diuretics. 2. Chronic renal failure, fluctuating creatinine. The slightly higher creatinine of 1.88 from yesterday may reflect superimposed prerenal azotemia from his hemodynamic instability. There is no indication for any dialytic intervention. Continue to optimize hemodynamics. Overall status for this patient remains guarded. Job ID: [id number]
[2020-04-28] MEDS: Pantoprazole 40 MG GRANULES PACKET PO SCH (22:04)
[2020-04-28] MEDS: Lidocaine Patch Removal 1 EACH TOP SCH (22:05)
[2020-04-29] MEDS: Albumin 25% 25 GM/100 ML BOT IVPB SCH (04:14)
[2020-04-29] MEDS: DOPamine 400 MG/D5W 250 ML 250 ML IVPB SCH ×3 (04:15→18:04)
[2020-04-29] MEDS: DOBUTamine 500 mg/250 ml 500 MG in Premix Bag 1 BAG IVPB SCH (04:15)
[2020-04-29 05:11] LABS: Albumin 3.7 g/dL (3.4-4.8); Anion Gap 15 mmol/L (10-20); BUN (Urea Nitrogen) 71 mg/dL (8.4-25.7); Calc. Creatinine Clearance 31 mL/min (70-130); Calcium 8.7 mg/dL (7.8-10.44); Carbon Dioxide 24 mmol/L (23-31); Chloride 101 mmol/L (98-107); Estimated GFR-MDRD 31; Glucose 116 mg/dL (83-110); Potassium 3.7 mmol/L (3.5-5.1); Sodium 136 mmol/L (136-145)
[2020-04-29] MEDS: Ferrous Sulfate 325 MG TAB PO SCH ×2 (07:42→15:35)
[2020-04-29] MEDS: Furosemide 40 MG TAB PER TUBE SCH (07:42)
[2020-04-29] MEDS: Carvedilol 6.25 MG TAB PO SCH ×2 (07:43→20:33)
[2020-04-29] MEDS: Calcitriol 0.25 MCG CAP PO SCH (07:43)
[2020-04-29] MEDS: FLUoxetine HCl 10 MG CAP PO SCH (07:44)
[2020-04-29] MEDS: Docusate 100 MG CAP PO SCH (07:44)
[2020-04-29] MEDS: Senokot S 8.6-50 MG TAB PO SCH ×2 (07:45→20:37)
[2020-04-29] MEDS: Sodium Bicarbonate Tab 325 MG TAB PO SCH ×3 (07:45→20:37)
[2020-04-29] MEDS: Heparin 5,000 UNITS/ML VIAL SC SCH ×3 (07:55→20:36)
--- NOTE | 2020-04-29 08:32 | PDOC.HOSPP ---
- Subjective Encounter Date: 04/29/20 Encounter Time: 08:30 Subjective: responds to verbal stimuli. no appropriate verbal responce - Objective Vital Signs & Weight: Vital Signs (12 hours) Temp Pulse Resp BP Pulse Ox 04/29/20 07:54 95 04/29/20 07:52 71 31 H 95 04/29/20 07:43 101/47 L 04/29/20 04:00 98.6 F 04/29/20 00:13 93 L 04/29/20 00:00 98.5 F 04/28/20 23:56 70 30 H 90 L 04/28/20 22:04 101/47 L Weight Admit Weight 169 lb Weight 169 lb 1.513 oz Most Recent Monitor Data Heart Rate from ECG 69 NIBP 102/45 NIBP BP-Mean 64 Respiration from ECG 29 SpO2 94 I&O: 04/28/20 04/29/20 04/30/20 06:59 06:59 06:59 Intake Total 1500 1303 Output Total 1575 1515 Balance -75 -212 Result Diagrams: 04/28/20 03:31 04/29/20 04:16 Hospitalist ROS - Medication Medications: Active Medications Generic Name Dose Route Start Last Admin Trade Name Freq PRN Reason Stop Dose Admin Acetaminophen 650 mg 04/17/20 16:19 04/20/20 19:56 Tylenol PO 650 mg Q4H PRN Administration Headache/Fever/Mild Pain (1-3) Albuterol/Ipratropium 3 ml 04/22/20 13:00 04/29/20 07:52 Duoneb NEB 3 ml [id number] [facility] Administration Calcitriol 0.25 mcg 04/18/20 09:00 04/29/20 07:43 Rocaltrol PO Not Given DAILY [facility] Carvedilol 6.25 mg 04/17/20 21:00 04/29/20 07:43 Coreg PO Not Given BID [facility] Docusate Sodium 100 mg 04/18/20 09:00 04/29/20 07:44 Colace PO Not Given DAILY [facility] Epoetin Mateusz-epbx 7,500 unit 04/17/20 18:00 04/24/20 18:39 Retacrit SC 7,500 unit Q7D [facility] Administration Ferrous Sulfate 325 mg 04/17/20 17:00 04/29/20 07:42 Feosol PO Not Given BID-WM [facility] Fluoxetine HCl 10 mg 04/18/20 09:00 04/29/20 07:44 Prozac PO Not Given DAILY [facility] Furosemide 40 mg 04/28/20 07:30 04/29/20 07:42 Lasix PER TUBE Not Given DAILY-AC [facility] Heparin Sodium (Porcine) 5,000 units 04/17/20 21:00 04/29/20 07:55 Heparin SC 5,000 units TID [facility] Administration Dopamine HCl/Dextrose 250 mls @ 0 mls/hr 04/28/20 08:00 04/29/20 04:15 Dopamine 400 Mg/D5w 250 Ml IVPB 250 mls INF [facility] Administration Protocol Titrate Dobutamine HCl/Dextrose 500 mg 250 mls @ 0 mls/hr 04/28/20 10:30 04/29/20 04: 15 / Device IVPB 250 mls INF [facility] Administration Protocol As Directed Lidocaine 1 patch 04/18/20 09:00 04/28/20 10:16 Lidoderm 5% Patch TD 1 patch DAILY [facility] Administration Miscellaneous Medication 1 each 04/18/20 21:00 04/28/20 22:05 Lidocaine Patch Removal TOP 1 each HS [facility] Administration Ondansetron HCl 4 mg 04/17/20 16:19 04/28/20 03:05 Zofran IVP 4 mg Q6H PRN Administration Nausea/Vomiting Pantoprazole Sodium 40 mg 04/22/20 21:00 04/28/20 22:04 Protonix PO Not Given HS [facility] Senna/Docusate Sodium 2 tab 04/17/20 21:00 04/29/20 07:45 Senokot S PO Not Given BID [facility] Sodium Bicarbonate 650 mg 04/17/20 21:00 04/29/20 07:45 Bicarbonate, Sodium PO Not Given TID [facility] - Exam Neck: no JVD Heart: RRR Respiratory - other findings: diffuse coarse BS with rales Gastrointestinal: soft, non-tender, normal bowel sounds Extremities: no edema Hosp A/P (1) Hypotension Status: Acute Qualifiers: Hypotension type: unspecified hypotension type Qualified Code(s): I95.9 - Hypotension, unspecified (2) Acute and chronic respiratory failure with hypoxia Code(s): J96.21 - ACUTE AND CHRONIC RESPIRATORY FAILURE WITH HYPOXIA Status: Acute (3) Bacteremia due to Klebsiella pneumoniae Code(s): R78.81 - BACTEREMIA; B96.1 - KLEBSIELLA PNEUMONIAE THE CAUSE OF DISEASES CLASSD ELSWHR Status: Acute (4) SIMONA (acute kidney injury) Code(s): N17.9 - ACUTE KIDNEY FAILURE, UNSPECIFIED Status: Acute (5) Sepsis Code(s): A41.9 - SEPSIS, UNSPECIFIED ORGANISM Status: Acute Qualifiers: Sepsis type: Escherichia coli Sepsis acute organ dysfunction status: with acute organ dysfunction Severe sepsis acute organ dysfunction type: acute renal failure Acute renal failure type: with acute tubular necrosis Severe sepsis shock status: without septic shock Qualified Code(s): A41.51 - Sepsis due to Escherichia coli [E. coli]; R65.20 - Severe sepsis without septic shock; N17.0 - Acute kidney failure with tubular necrosis (6) Dementia Code(s): F03.90 - UNSPECIFIED DEMENTIA WITHOUT BEHAVIORAL DISTURBANCE Status: Chronic Qualifiers: Dementia type: unspecified type Dementia behavioral disturbance: without behavioral disturbance Qualified Code(s): F03.90 - Unspecified dementia without behavioral disturbance (7) Hypernatremia Code(s): E87.0 - HYPEROSMOLALITY AND HYPERNATREMIA Status: Resolved (8) Acute on chronic systolic HF (heart failure) Code(s): I50.23 - ACUTE ON CHRONIC SYSTOLIC (CONGESTIVE) HEART FAILURE Status : Acute (9) CKD (chronic kidney disease), stage III Code(s): N18.3 - CHRONIC KIDNEY DISEASE, STAGE 3 (MODERATE) Status: Acute - Plan on dopamine/dobutamine no effective diuresis receing iv albumin per Nephrology on IV antibx will discuss with intensicist, cardiology, etc prognosis poor, family aware
--- NOTE | 2020-04-29 09:21 | PRG ---
DATE OF SERVICE: 04/29/2020 SUBJECTIVE: This morning, in the ICU. OBJECTIVE: VITAL SIGNS: Pulse 71, blood pressure 101/47, he is on high-flow 50%, sats . His I's and O's have been even. He is less responsive. BUN and creatinine are elevated. CHEST: Decreased breath sounds. No wheezing. CARDIAC: Normal S1, S2. No gallops. ASSESSMENT AND PLAN: Respiratory failure, DNR. Family decided not to intubate him, comfort care. They are still continuing pretty much cardiac care, diuretics, broad-spectrum antibiotics. We will follow while in the ICU. Job ID: [id number]
--- NOTE | 2020-04-29 09:54 | PRG ---
DATE OF SERVICE: 04/29/2020 SERVICE: Renal Medicine. SUBJECTIVE: Mr. Dhillon is an 80-year-old white male, followed up for his chronic renal failure by the Renal Service. Renal function is stable. However, creatinine has slightly worsened when compared yesterday. This may be a reflection of his recent hemodynamic instability. The patient has been seen by Pulmonary and Cardiology. He has also been started on dopamine drip to enhance his hemodynamics. Overall prognosis with this patient remains poor. No acute events noted last night. OBJECTIVE: VITAL SIGNS: Blood pressure 102/45 with heart rate of 71, respiratory rate 31, and O2 saturation 95% on nasal CPAP. GENERAL: The patient is arousable, lethargic, not in distress. SKIN: Adequate turgor. HEENT: Slightly pale conjunctivae. Anicteric sclerae. NECK: No neck mass. No carotid bruits. No JVD. CHEST: No deformities. LUNGS: Decreased breath sounds. HEART: Normal sinus rhythm. No murmurs. No gallops. No rubs. ABDOMEN: Globular, soft, and nontender. No masses. EXTREMITIES: No edema. Positive for urostomy bag. MEDICATIONS: Medications of April 29, 2020, reviewed. LABORATORY DATA: Laboratories of April 29, 2020; sodium 136, potassium 3.7, chloride 101, carbon dioxide 24, BUN 71, creatinine 2.04, GFR 31 mL/minute, glucose 116, calcium 8.7, phosphorus 4.0, and albumin 3.7. ASSESSMENT AND PLAN: 1. Chronic renal failure, relatively stable. Although the creatinine is slightly high at 2.0 compared to yesterday at 1.88, this may just be a reflection of a superimposed prerenal azotemia. Continue to optimize hemodynamics. Continue dopamine. 2. Shortness of breath - multifactorial etiology. Congestive heart failure with the possibility of an intrinsic lung problem remains. Continue supportive care. The family has agreed for DNR with this patient. 3. Anemia, on weekly Epogen. Recheck CBC and basic metabolic panel in a.m. Job ID: [id number]
[2020-04-29] MEDS: Lidocaine 5% Patch TD SCH (11:34)
[2020-04-29] MEDS: Scopolamine 1.5 mg/72 hour Patch TD SCH (16:11)
--- NOTE | 2020-04-29 16:36 | PRG ---
DATE OF SERVICE: 04/29/2020 SUBJECTIVE: Mr. Dhillon's status is unchanged. He appears relatively stable. He is somnolent. Blood pressure and heart rate are stable on dopamine and dobutamine. This has not been titrated. He has had some diuresis. OBJECTIVE: VITAL SIGNS: T-max 100.1, blood pressure 118/58, pulse 78. LUNGS: Crackles noted bilaterally. HEART: Regular rate and rhythm. ABDOMEN: Soft, nontender, nondistended. EXTREMITIES: 1+ pitting edema. PERTINENT LABORATORY DATA: Hemoglobin 9.2. Creatinine 2.0, up from 1.8. IMPRESSION: 1. Acute on chronic systolic heart failure. 2. Recent urinary tract infection with sepsis. 3. Chronic kidney disease. 4. Deconditioning. RECOMMENDATIONS: At this point, we will continue to stay the course. No further titration of dopamine or dobutamine. May consider weaning off one or the other tomorrow. He appears to be hemodynamically stable. Again, family has opted to proceed with a more conservative approach, which I would agree. Job ID: [id number]
[2020-04-29] MEDS: Lidocaine Patch Removal 1 EACH TOP SCH (20:36)
[2020-04-29] MEDS: Pantoprazole 40 MG GRANULES PACKET PO SCH (20:37)
[2020-04-30] MEDS: DOPamine 400 MG/D5W 250 ML 250 ML IVPB SCH ×3 (01:29→22:00)
[2020-04-30 03:47] LABS: Band 8 % (5-11); Hemoglobin 7.8 g/dL (14.0-18.0); Hypochromia SLIGHT = 6-15 cells (100X) (0-5/hpf); Lymphocytes 1 % (21-51); MDiff Complete? YES; Mean Corpuscular HGB CONC 33.4 g/dL (32.0-36.0); Mean Corpuscular Hemoglobin 33.9 pg (27.0-31.0); Mean Platelet Volume 9.5 fL (7.4-10.4); Monocytes 5 % (0-10); Neutrophil 86 % (42-75); Platelet Count 151 thou/uL (130-400); Platelet Morphology Comment Appears Adequate; RBC Distribution Width 13.8 % (11.5-14.5); Red Blood Cell (RBC) Count 2.29 mill/uL (4.70-6.10); White Blood Cell (WBC) Count 11.9 thou/uL (4.8-10.8)
[2020-04-30 04:47] LABS: Albumin 3.6 g/dL (3.4-4.8); Anion Gap 14 mmol/L (10-20); BUN (Urea Nitrogen) 64 mg/dL (8.4-25.7); BUN/Creatinine Ratio 34.04; Calc. Creatinine Clearance 34 mL/min (70-130); Calcium 8.7 mg/dL (7.8-10.44); Carbon Dioxide 24 mmol/L (23-31); Chloride 101 mmol/L (98-107); Estimated GFR-MDRD 35; Glucose 106 mg/dL (83-110); Phosphorus 3.5 mg/dL (2.3-4.7); Potassium 3.2 mmol/L (3.5-5.1); Sodium 136 mmol/L (136-145)
[2020-04-30] MEDS: DOBUTamine 500 mg/250 ml 500 MG in Premix Bag 1 BAG IVPB SCH (05:08)
--- NOTE | 2020-04-30 09:07 | PRG ---
DATE OF SERVICE: SUBJECTIVE: This morning, he is still slightly more responsive. OBJECTIVE: VITAL SIGNS: Sats are 100% on high-flow 50, 48 FiO2. Blood pressure 107/47, pulse 73, respiratory rate . CHEST: Decreased breath sounds. Bilateral rhonchi. CARDIAC: Normal S1, S2. No gallops. ABDOMEN: No masses. LABORATORY DATA: White count 11,000, H and H 7 and 20, platelet count normal. Creatinine is 1.8. No recent x-ray. IMPRESSION: Respiratory failure, renal failure, cardiomyopathy, left pleural effusion. PLAN: Comfort care. Try and switch him over to nasal O2 to keep the sats above 90. He is on dopamine and Dobutrex. We will probably switch his Lasix to IV. We will follow. Job ID: [id number]
[2020-04-30] MEDS ORDERED: Potassium Chloride 40 MEQ in Premix Bag 1 BAG IVPB SCH (09:15)
[2020-04-30] MEDS: Furosemide 40 MG/4 ML VIAL SLOW IVP SCH (09:32)
[2020-04-30] MEDS: Ferrous Sulfate 325 MG TAB PO SCH ×2 (09:33→16:58)
[2020-04-30] MEDS: Carvedilol 6.25 MG TAB PO SCH ×2 (09:33→20:35)
[2020-04-30] MEDS: Calcitriol 0.25 MCG CAP PO SCH (09:33)
[2020-04-30] MEDS: Docusate 100 MG CAP PO SCH (09:33)
[2020-04-30] MEDS: FLUoxetine HCl 10 MG CAP PO SCH (09:34)
[2020-04-30] MEDS: Senokot S 8.6-50 MG TAB PO SCH ×2 (09:34→20:36)
[2020-04-30] MEDS: Sodium Bicarbonate Tab 325 MG TAB PO SCH ×3 (09:34→20:36)
--- NOTE | 2020-04-30 09:34 | PRG ---
DATE OF SERVICE: 04/30/2020 SUBJECTIVE: Mr. Dhillon is an 80-year-old white male, followed up by the Renal Service for his chronic renal failure. He has had an acute kidney injury recently. In the last few days, he was transferred back to ICU due to acute respiratory distress. He was found to be in CHF. He was started on dopamine as well as dobutamine. Cardiology is following. The feeling is that this patient is not a candidate for any invasive procedure. Supportive management. Renal function is noted to be holding steady. No acute events noted last night. OBJECTIVE: VITAL SIGNS: Blood pressure is 107/47, heart rate 73, respiratory rate 26, O2 saturation 100%. GENERAL: Noted to be awake, comfortable, not in overt distress. SKIN: Adequate turgor. HEENT: He has slightly pale conjunctivae. Anicteric sclerae. NECK: No neck mass. No carotid bruits. No JVD. CHEST: No deformities. LUNGS: Clear breath sounds. HEART: Normal sinus rhythm. No murmur. No gallops. No rubs. ABDOMEN: Globular, soft, nontender. No masses. Positive for urostomy bag. EXTREMITIES: No edema. No deformities. MEDICATIONS: On April 30, 2020, were reviewed. LABORATORY DATA: On April 30, 2020; white count 11.9, hemoglobin 7.8, hematocrit 23.2. Sodium was 136, potassium 3.2, chloride 101, carbon dioxide 24, BUN 64, creatinine 1.88, GFR 35 mL/minute, calcium 8.7, phosphorus 3.5, albumin 3.6. ASSESSMENT AND PLAN: 1. Mild hypokalemia, p.r.n. potassium replacement, KCl 40 mEq IV x1 dose. 2. Chronic renal failure, stable. Creatinine slightly improved at 1.88 from 2.04. Currently, hemodynamic is being optimized. 3. Congestive heart failure-cardiac echo showed decreased ejection fraction. Supportive care. No invasive procedure being contemplated by Cardiology. His overall prognosis remains guarded. 4. Anemia. Hemoglobin noted, 7.8. We are to continue the weekly Epogen and iron supplementation with this patient. Job ID: [id number]
[2020-04-30] MEDS: Heparin 5,000 UNITS/ML VIAL SC SCH ×3 (09:42→20:35)
[2020-04-30] MEDS: Furosemide 40 MG TAB PER TUBE SCH (09:50)
[2020-04-30] MEDS: Lidocaine 5% Patch TD SCH (11:00)
[2020-04-30] MEDS ORDERED: Morphine 2 MG/ML VIAL SLOW IVP SCH (12:00)
--- NOTE | 2020-04-30 13:40 | PDOC.HOSPP ---
- Subjective Encounter Date: 04/30/20 Encounter Time: 08:30 Subjective: awake, no new complaints - Objective Vital Signs & Weight: Vital Signs (12 hours) Temp Pulse Pulse Pulse Resp BP BP 04/30/20 11:00 99.5 F 04/30/20 10:08 85 77 97/55 L 04/30/20 09:33 124/57 L 04/30/20 07:56 04/30/20 07:00 99.6 F 04/30/20 06:58 88 25 H 04/30/20 04:00 99.4 F BP Pulse Ox 04/30/20 11:00 04/30/20 10:08 95/49 L 04/30/20 09:33 04/30/20 07:56 100 04/30/20 07:00 04/30/20 06:58 99 04/30/20 04:00 Weight Admit Weight 169 lb Weight 172 lb 13.478 oz Most Recent Monitor Data Heart Rate from ECG 70 NIBP 93/44 NIBP BP-Mean 60 Respiration from ECG 22 SpO2 100 I&O: 04/29/20 04/30/20 05/01/20 06:59 06:59 06:59 Intake Total 1303 1015 Output Total 1061 7985 673 Balance -871 -945 -615 Result Diagrams: 04/30/20 03:00 04/30/20 03:00 Hospitalist ROS - Medication Medications: Active Medications Generic Name Dose Route Start Last Admin Trade Name Freq PRN Reason Stop Dose Admin Acetaminophen 650 mg 04/17/20 16:19 04/20/20 19:56 Tylenol PO 650 mg Q4H PRN Administration Headache/Fever/Mild Pain (1-3) Albuterol/Ipratropium 3 ml 04/22/20 13:00 04/30/20 06:58 Duoneb NEB 3 ml Q0IV-IA [facility] Administration Calcitriol 0.25 mcg 04/18/20 09:00 04/30/20 09:33 Rocaltrol PO Not Given DAILY [facility] Carvedilol 6.25 mg 04/17/20 21:00 04/30/20 09:33 Coreg PO Not Given BID [facility] Docusate Sodium 100 mg 04/18/20 09:00 04/30/20 09:33 Colace PO Not Given DAILY [facility] Epoetin Mateusz-epbx 7,500 unit 04/17/20 18:00 04/24/20 18:39 Retacrit SC 7,500 unit Q7D [facility] Administration Ferrous Sulfate 325 mg 04/17/20 17:00 04/30/20 09:33 Feosol PO Not Given BID-WM [facility] Fluoxetine HCl 10 mg 04/18/20 09:00 04/30/20 09:34 Prozac PO Not Given DAILY [facility] Furosemide 40 mg 04/30/20 09:00 04/30/20 09:32 Lasix SLOW IVP 40 mg DAILY [facility] Administration Heparin Sodium (Porcine) 5,000 units 04/17/20 21:00 04/30/20 09:42 Heparin SC 5,000 units TID [facility] Administration Dopamine HCl/Dextrose 250 mls @ 0 mls/hr 04/28/20 08:00 04/30/20 09:32 Dopamine 400 Mg/D5w 250 Ml IVPB 250 mls INF [facility] Administration Protocol Titrate Dobutamine HCl/Dextrose 500 mg 250 mls @ 0 mls/hr 04/28/20 10:30 04/30/20 05: 08 / Device IVPB 250 mls INF [facility] Administration Protocol As Directed Lidocaine 1 patch 04/18/20 09:00 04/30/20 11:00 Lidoderm 5% Patch TD 1 patch DAILY [facility] Administration Miscellaneous Medication 1 each 04/18/20 21:00 04/29/20 20:36 Lidocaine Patch Removal TOP Not Given HS [facility] Morphine Sulfate 2 mg 04/30/20 12:00 04/30/20 12:01 Morphine SLOW IVP 04/30/20 14:00 2 mg NOW [facility] Administration Ondansetron HCl 4 mg 04/17/20 16:19 04/28/20 03:05 Zofran IVP 4 mg Q6H PRN Administration Nausea/Vomiting Pantoprazole Sodium 40 mg 04/22/20 21:00 04/29/20 20:37 Protonix PO Not Given HS [facility] Scopolamine 1.5 mg 04/29/20 17:00 04/29/20 16:11 Transderm Scop TD 1.5 mg Q3D [facility] Administration Senna/Docusate Sodium 2 tab 04/17/20 21:00 04/30/20 09:34 Senokot S PO Not Given BID [facility] Sodium Bicarbonate 650 mg 04/17/20 21:00 04/30/20 09:34 Bicarbonate, Sodium PO Not Given TID [facility] - Exam General Appearance: awake alert, ill appearing Eye: PERRL, anicteric sclera ENT: no oropharyngeal lesions, dry oral mucosa Neck: supple, no JVD Heart: RRR, no murmur Respiratory: no wheezes, rales, rhonchi Gastrointestinal: soft, non-tender, non-distended, normal bowel sounds Extremities: no cyanosis, 1+ LE edema Neurological: cranial nerve grossly intact, no focal deficits Hosp A/P (1) Acute exacerbation of CHF (congestive heart failure) Code(s): I50.9 - HEART FAILURE, UNSPECIFIED Status: Acute Qualifiers: Heart failure type: combined systolic and diastolic Qualified Code(s): I50.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 (2) Acute respiratory failure with hypoxia Code(s): J96.01 - ACUTE RESPIRATORY FAILURE WITH HYPOXIA Status: Acute (3) SIMONA (acute kidney injury) Code(s): N17.9 - ACUTE KIDNEY FAILURE, UNSPECIFIED Status: Acute (4) Sepsis Code(s): A41.9 - SEPSIS, UNSPECIFIED ORGANISM Status: Acute Qualifiers: Sepsis type: Escherichia coli Sepsis acute organ dysfunction status: with acute organ dysfunction Severe sepsis acute organ dysfunction type: acute renal failure Acute renal failure type: with acute tubular necrosis Severe sepsis shock status: without septic shock Qualified Code(s): A41.51 - Sepsis due to Escherichia coli [E. coli]; R65.20 - Severe sepsis without septic shock; N17.0 - Acute kidney failure with tubular necrosis (5) E coli bacteremia Code(s): R78.81 - BACTEREMIA; B96.20 - UNSP ESCHERICHIA COLI THE CAUSE OF DISEASES CLASSD ELSWHR Status: Acute (6) UTI (urinary tract infection) Status: Acute Qualifiers: Urinary tract infection type: acute pyelonephritis Qualified Code(s): N10 - Acute pyelonephritis (7) Severe dehydration Code(s): E86.0 - DEHYDRATION Status: Resolved (8) Dementia Code(s): F03.90 - UNSPECIFIED DEMENTIA WITHOUT BEHAVIORAL DISTURBANCE Status: Chronic Qualifiers: Dementia type: unspecified type Dementia behavioral disturbance: without behavioral disturbance Qualified Code(s): F03.90 - Unspecified dementia without behavioral disturbance (9) Anemia Code(s): D64.9 - ANEMIA, UNSPECIFIED Status: Chronic Qualifiers: Anemia type: unspecified type Qualified Code(s): D64.9 - Anemia, unspecified (10) CKD (chronic kidney disease) Code(s): N18.9 - CHRONIC KIDNEY DISEASE, UNSPECIFIED Status: Chronic Qualifiers: Chronic kidney disease stage: stage 3 (moderate) Qualified Code(s): N18.3 - Chronic kidney disease, stage 3 (moderate) - Plan may dc either dopamine or dobutamine drip, sbp is holding up continue lasix, coreg, prozac, iron, nebs, lidocaine tts appreciate help from , has T12 compression fracture with disc herniation, will be in clam shell Creatinine is slowly trending down covid 19 is -ve oral diet, encourage po intake PT/OT to mobilize as tolerated will need rehab or swing bed for dc plan prognosis guarded speech consult, may start pureed diet
[2020-04-30] MEDS: Lidocaine Patch Removal 1 EACH TOP SCH (20:35)
[2020-04-30] MEDS: Pantoprazole 40 MG GRANULES PACKET PO SCH (20:36)
[2020-05-01] MEDS: DOBUTamine 500 mg/250 ml 500 MG in Premix Bag 1 BAG IVPB SCH (04:30)
[2020-05-01 05:08] LABS: Albumin 3.1 g/dL (3.4-4.8); Anion Gap 12 mmol/L (10-20); BUN (Urea Nitrogen) 61 mg/dL (8.4-25.7); BUN/Creatinine Ratio 32.97; Calc. Creatinine Clearance 34 mL/min (70-130); Calcium 8.9 mg/dL (7.8-10.44); Carbon Dioxide 25 mmol/L (23-31); Chloride 103 mmol/L (98-107); Estimated GFR-MDRD 35; Glucose 101 mg/dL (83-110); Phosphorus 3.5 mg/dL (2.3-4.7); Potassium 3.3 mmol/L (3.5-5.1); Sodium 137 mmol/L (136-145)
[2020-05-01 07:11] LABS: Hemoglobin 7.8 g/dL (14.0-18.0); Mean Corpuscular HGB CONC 34.2 g/dL (32.0-36.0); Mean Corpuscular Hemoglobin 35.5 pg (27.0-31.0); Mean Platelet Volume 8.9 fL (7.4-10.4); Platelet Count 175 thou/uL (130-400); RBC Distribution Width 13.5 % (11.5-14.5); Red Blood Cell (RBC) Count 2.18 mill/uL (4.70-6.10)
[2020-05-01 07:44] LABS: Band 19 % (5-11); Eosinophils 4 % (0-10); Lymphocytes 3 % (21-51); MDiff Complete? YES; Macrocytosis SLIGHT = 6-15 cells (100X) (0-5/hpf); Monocytes 4 % (0-10); Neutrophil 70 % (42-75); Platelet Morphology Comment Appears Adequate; Polychromasia SLIGHT = 2-3 cells (100X) (0-2/hpf)
[2020-05-01] MEDS: Lidocaine 5% Patch TD SCH (08:40)
[2020-05-01] MEDS: Heparin 5,000 UNITS/ML VIAL SC SCH ×2 (08:40→15:26)
[2020-05-01] MEDS: Furosemide 40 MG/4 ML VIAL SLOW IVP SCH (08:41)
--- NOTE | 2020-05-01 09:35 | PRG ---
DATE OF SERVICE: 05/01/2020 SUBJECTIVE: Mr. Dhillon is more alert today. His blood pressure remains stable. He is currently on dopamine and dobutamine at 5 and 5 mcg/minute. OBJECTIVE: VITAL SIGNS: Blood pressure 107/55, pulse 108, respirations 20. LUNGS: Minimal crackles bilaterally. HEART: Regular rate and rhythm. ABDOMEN: Soft, nontender, nondistended. EXTREMITIES: No edema. PERTINENT LABORATORY DATA: Hemoglobin 7.8. Creatinine 1.85, down from 1.88. IMPRESSION: 1. Acute on chronic systolic heart failure. 2. Renal insufficiency. 3. Sepsis. 4. Deconditioning. RECOMMENDATIONS: 1. Plan is to wean off dopamine. 2. Continue dobutamine at 5 mcg and wean through the weekend. 3. Okay from my standpoint to transfer to telemetry monitoring. 4. I have reached out to his to update her yesterday and left a message. We will try and update her again today. Job ID: [id number]
--- NOTE | 2020-05-01 09:40 | PRG ---
DATE OF SERVICE: 05/01/2020 SUBJECTIVE: Emre Dhillon this morning much more appropriate, more responsive. He is on Dobutrex. OBJECTIVE: VITAL SIGNS: Saturations are 95% on nasal O2, pulse 88, blood pressure 100/70, Dobutrex. CHEST: Decreased breath sounds. No wheezing. CARDIAC: Normal S1, S2. No gallops. ABDOMEN: Soft. NEUROLOGIC: Awake, alert, and responsive. Denies any pain discomfort. LABORATORY DATA: White count 8000, H and H 7 and 21. Lytes are normal. ASSESSMENT AND PLAN: Respiratory failure, renal failure, and cardiomyopathy, improved. Continue present treatment. Job ID: [id number]
[2020-05-01] MEDS: Docusate 100 MG CAP PO SCH (10:06)
[2020-05-01] MEDS: Sodium Bicarbonate Tab 325 MG TAB PO SCH ×3 (10:06→22:02)
[2020-05-01] MEDS: Carvedilol 6.25 MG TAB PO SCH ×2 (10:06→19:49)
[2020-05-01] MEDS: Senokot S 8.6-50 MG TAB PO SCH ×2 (10:07→22:02)
[2020-05-01] MEDS: Ferrous Sulfate 325 MG TAB PO SCH ×2 (10:07→15:26)
[2020-05-01] MEDS: Calcitriol 0.25 MCG CAP PO SCH (10:07)
[2020-05-01] MEDS: FLUoxetine HCl 10 MG CAP PO SCH (10:07)
--- NOTE | 2020-05-01 13:14 | PDOC.HOSPP ---
- Subjective Encounter Date: 05/01/20 Encounter Time: 12:00 Subjective: awake, oriented well, is moving all extre says he is hungry to eat no chest pain or sob - Objective Vital Signs & Weight: Vital Signs (12 hours) Temp Pulse Pulse Pulse Resp BP BP 05/01/20 11:00 97.8 F 05/01/20 10:40 73 73 106/58 L 05/01/20 10:06 124/57 L 05/01/20 08:00 05/01/20 07:55 65 24 H 05/01/20 07:00 98.3 F 05/01/20 05:59 97.9 F 05/01/20 04:00 98 F 05/01/20 02:58 BP Pulse Ox Pulse Ox Pulse Ox 05/01/20 11:00 05/01/20 10:40 91/56 L 98 99 05/01/20 10:06 05/01/20 08:00 97 05/01/20 07:55 100 05/01/20 07:00 05/01/20 05:59 05/01/20 04:00 05/01/20 02:58 99 Weight Admit Weight 169 lb Weight 172 lb 6.424 oz Most Recent Monitor Data Heart Rate from ECG 77 NIBP 77/35 NIBP BP-Mean 49 Respiration from ECG 23 SpO2 96 I&O: 04/30/20 05/01/20 05/02/20 06:59 06:59 06:59 Intake Total 1015 771 85 Output Total 4707 9809 811 [facility] -945 -1089 -725 Result Diagrams: 05/01/20 06:45 05/01/20 04:30 Hospitalist ROS - Medication Medications: Active Medications Generic Name Dose Route Start Last Admin Trade Name Freq PRN Reason Stop Dose Admin Acetaminophen 650 mg 04/17/20 16:19 04/20/20 19:56 Tylenol PO 650 mg Q4H PRN Administration Headache/Fever/Mild Pain (1-3) Albuterol/Ipratropium 3 ml 04/22/20 13:00 05/01/20 07:55 Duoneb NEB 3 ml [id number] STEPHANIA Administration Calcitriol 0.25 mcg 04/18/20 09:00 05/01/20 10:07 Rocaltrol PO 0.25 mcg DAILY STEPHANIA Administration Carvedilol 6.25 mg 04/17/20 21:00 05/01/20 10:06 Coreg PO 6.25 mg BID STEPHANIA Administration Docusate Sodium 100 mg 04/18/20 09:00 05/01/20 10:06 Colace PO 100 mg DAILY STEPHANIA Administration Epoetin Mateusz-epbx 7,500 unit 04/17/20 18:00 04/24/20 18:39 Retacrit SC 7,500 unit Q7D STEPHANIA Administration Ferrous Sulfate 325 mg 04/17/20 17:00 05/01/20 10:07 Feosol PO 325 mg BID-WM STEPHANIA Administration Fluoxetine HCl 10 mg 04/18/20 09:00 05/01/20 10:07 Prozac PO 10 mg DAILY STEPHANIA Administration Furosemide 40 mg 04/30/20 09:00 05/01/20 08:41 Lasix SLOW IVP 40 mg DAILY STEPHANIA Administration Heparin Sodium (Porcine) 5,000 units 04/17/20 21:00 05/01/20 08:40 Heparin SC 5,000 units TID STEPHANIA Administration Dopamine HCl/Dextrose 250 mls @ 0 mls/hr 04/28/20 08:00 04/30/20 22:00 Dopamine 400 Mg/D5w 250 Ml IVPB 250 mls INF STEPHANIA Administration Protocol Titrate Dobutamine HCl/Dextrose 500 mg 250 mls @ 0 mls/hr 04/28/20 10:30 05/01/20 04: 30 / Device IVPB 250 mls INF STEPHANIA Administration Protocol As Directed Lidocaine 1 patch 04/18/20 09:00 05/01/20 08:40 Lidoderm 5% Patch TD 1 patch DAILY STEPHANIA Administration Miscellaneous Medication 1 each 04/18/20 21:00 04/30/20 20:35 Lidocaine Patch Removal TOP 1 each HS STEPHANIA Administration Ondansetron HCl 4 mg 04/17/20 16:19 04/28/20 03:05 Zofran IVP 4 mg Q6H PRN Administration Nausea/Vomiting Pantoprazole Sodium 40 mg 04/22/20 21:00 04/30/20 20:36 Protonix PO Not Given HS STEPHANIA Scopolamine 1.5 mg 04/29/20 17:00 04/29/20 16:11 Transderm Scop TD 1.5 mg Q3D STEPHANIA Administration Senna/Docusate Sodium 2 tab 04/17/20 21:00 05/01/20 10:07 Senokot S PO 2 tab BID STEPHANIA Administration Sodium Bicarbonate 650 mg 04/17/20 21:00 05/01/20 10:06 Bicarbonate, Sodium PO 650 mg TID STEPHANIA Administration - Exam General Appearance: awake alert Eye: PERRL, anicteric sclera ENT: no oropharyngeal lesions, dry oral mucosa Neck: supple, no JVD Heart: RRR, no murmur Respiratory: no wheezes, no rales Gastrointestinal: soft, non-tender, non-distended, normal bowel sounds Extremities: no cyanosis, no edema Neurological: cranial nerve grossly intact, no focal deficits Psychiatric: normal affect, A&O x 3 Hosp A/P (1) Acute exacerbation of CHF (congestive heart failure) Code(s): I50.9 - HEART FAILURE, UNSPECIFIED Status: Acute Qualifiers: Heart failure type: combined systolic and diastolic Qualified Code(s): I50.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 (2) Acute respiratory failure with hypoxia Code(s): J96.01 - ACUTE RESPIRATORY FAILURE WITH HYPOXIA Status: Acute (3) SIMONA (acute kidney injury) Code(s): N17.9 - ACUTE KIDNEY FAILURE, UNSPECIFIED Status: Acute (4) Sepsis Code(s): A41.9 - SEPSIS, UNSPECIFIED ORGANISM Status: Acute Qualifiers: Sepsis type: Escherichia coli Sepsis acute organ dysfunction status: with acute organ dysfunction Severe sepsis acute organ dysfunction type: acute renal failure Acute renal failure type: with acute tubular necrosis Severe sepsis shock status: without septic shock Qualified Code(s): A41.51 - Sepsis due to Escherichia coli [E. coli]; R65.20 - Severe sepsis without septic shock; N17.0 - Acute kidney failure with tubular necrosis (5) E coli bacteremia Code(s): R78.81 - BACTEREMIA; B96.20 - UNSP ESCHERICHIA COLI THE CAUSE OF DISEASES CLASSD ELSWHR Status: Acute (6) UTI (urinary tract infection) Status: Acute Qualifiers: Urinary tract infection type: acute pyelonephritis Qualified Code(s): N10 - Acute pyelonephritis (7) Severe dehydration Code(s): E86.0 - DEHYDRATION Status: Resolved (8) Dementia Code(s): F03.90 - UNSPECIFIED DEMENTIA WITHOUT BEHAVIORAL DISTURBANCE Status: Chronic Qualifiers: Dementia type: unspecified type Dementia behavioral disturbance: without behavioral disturbance Qualified Code(s): F03.90 - Unspecified dementia without behavioral disturbance (9) Anemia Code(s): D64.9 - ANEMIA, UNSPECIFIED Status: Chronic Qualifiers: Anemia type: unspecified type Qualified Code(s): D64.9 - Anemia, unspecified (10) CKD (chronic kidney disease) Code(s): N18.9 - CHRONIC KIDNEY DISEASE, UNSPECIFIED Status: Chronic Qualifiers: Chronic kidney disease stage: stage 3 (moderate) Qualified Code(s): N18.3 - Chronic kidney disease, stage 3 (moderate) - Plan on dobutamine drip, sbp is holding up, urine output around 1800ml last 24hrs. continue lasix, coreg, prozac, iron, nebs, lidocaine tts Creatinine is slowly trending down covid 19 is -ve oral diet to be initiated today, encourage po intake PT/OT to mobilize as tolerated will need rehab or swing bed for dc plan prognosis guarded
[2020-05-01] MEDS: EPOETIN ALFA-EPBX (ESRD) 4,000 UNIT/ML VIAL SC SCH (17:18)
[2020-05-01] MEDS: Pantoprazole 40 MG GRANULES PACKET PO SCH (22:01)
[2020-05-01] MEDS: Lidocaine Patch Removal 1 EACH TOP SCH (22:02)
[2020-05-02] MEDS: Heparin 5,000 UNITS/ML VIAL SC SCH ×4 (03:08→20:34)
[2020-05-02 04:30] LABS: Albumin 3.1 g/dL (3.4-4.8); Anion Gap 11 mmol/L (10-20); BUN (Urea Nitrogen) 64 mg/dL (8.4-25.7); BUN/Creatinine Ratio 33.33; Calc. Creatinine Clearance 33 mL/min (70-130); Carbon Dioxide 28 mmol/L (23-31); Chloride 104 mmol/L (98-107); Estimated GFR-MDRD 34; Glucose 110 mg/dL (83-110); Phosphorus 3.4 mg/dL (2.3-4.7); Potassium 3.2 mmol/L (3.5-5.1); Sodium 140 mmol/L (136-145)
--- NOTE | 2020-05-02 06:38 | PRG ---
DATE OF SERVICE: 05/01/2020 SUBJECTIVE: Mr. Dhillon is an 80-year-old white male, followed up by the Renal Service for his acute kidney injury on top of his chronic renal failure. Renal function has been stabilizing. The patient has had several episodes of respiratory distress. This morning, he is feeling better. He is currently on IV dobutamine with the dopamine being discontinued. The patient voices no new complaints. OBJECTIVE: VITAL SIGNS: Blood pressure is noted at 112/60, heart rate 80, respiratory rate 25, O2 saturation 96%. GENERAL: He is noted to be awake, alert, comfortable, not in distress. SKIN: Adequate turgor. HEENT: Slightly pale conjunctivae. Anicteric sclerae. NECK: No neck mass. No carotid bruits. No JVD. CHEST: No deformities. LUNGS: Decreased breath sounds. HEART: Normal sinus rhythm. No murmur. No gallops. No rubs. ABDOMEN: Globular, soft, nontender. No masses. EXTREMITIES: No edema. No deformities. MEDICATIONS: Medications of May 01, 2020, reviewed. LABORATORY DATA: Laboratories of May 01, 2020; white count 8, hemoglobin 7.8. Sodium 137, potassium 3.3, chloride 103, carbon dioxide 25, BUN 61, creatinine 1.85, phosphorus 3.5, calcium 8.9, albumin 3.1. ASSESSMENT AND PLAN: 1. Acute kidney injury on top of his chronic renal failure. Stabilizing renal function. Creatinine 1.8 is his best value. No indication for any dialytic intervention. Currently, still on furosemide. Continue to optimize hemodynamics. 2. Congestive heart failure/acute respiratory distress, clinically improving. Review of his medications suggests he is on a combination of dopamine and dobutamine. Overall, prognosis still remains guarded. ADDENDUM: Anemia. Currently, on Epogen and iron supplementation. Job ID: [id number]
--- NOTE | 2020-05-02 07:12 | PRG ---
DATE OF SERVICE: 05/02/2020 SUBJECTIVE: Mr. Dhillon is an 80-year-old white male with known history of acute kidney injury on top of his chronic renal failure. He had hemodynamically- mediated renal dysfunction which has improved over the last several days. His hospitalization was also marred by the development of CHF. He has also been treated for his E coli bacteremia. Last night, he was noted to be confused and he inadvertently pulled out his central line. This was placed back again. No other acute events noted. He is still currently on IV dobutamine and dopamine due to his decreased EF and CHF. OBJECTIVE: VITAL SIGNS: Blood pressure is noted at 115/57, heart rate 87, respiratory rate 28, O2 saturation 97%. GENERAL: The patient is arousable, confused, but not in distress. SKIN: Adequate turgor. HEENT: Slightly pale conjunctivae. Anicteric sclerae. No neck mass. No carotid bruits. No JVD. CHEST: No deformities. LUNGS: Decreased breath sounds. HEART: Normal sinus rhythm. No murmurs, gallops, or rubs. ABDOMEN: Globular, soft, nontender. No masses. EXTREMITIES: No edema. No deformities. MEDICATIONS: Medications of May 02 reviewed. LABORATORY DATA: Laboratories of May 01, 2020, white count 8, hemoglobin 7.8, sodium 140, potassium 3.2, chloride 104, carbon dioxide 28, BUN 64, creatinine 1.92, glucose 110, calcium 9, phosphorus 3.4, albumin 3.1. ASSESSMENT AND PLAN: 1. Anemia. The patient is currently on weekly Epogen regimen of 7500 units subcu every week. 2. Acute kidney injury/chronic renal failure, superimposed prerenal renal azotemia, stable renal function. No indication for any dialytic intervention. Still on Lasix. Continue to optimize hemodynamics. 3. Congestive heart failure. Currently, on a combination of dopamine and dobutamine. The patient is tolerating said treatment and stabilizing his congestive heart failure. Please note, his overall prognosis remains guarded. and daughter have been updated on a regular basis by Dr. De Leon and by myself. Continue supportive care. Recheck basic metabolic panel and CBC in a.m. Job ID: [id number] [facility]
[2020-05-02] MEDS: Senokot S 8.6-50 MG TAB PO SCH ×2 (08:19→20:29)
[2020-05-02] MEDS: Calcitriol 0.25 MCG CAP PO SCH (08:19)
[2020-05-02] MEDS: FLUoxetine HCl 10 MG CAP PO SCH (08:19)
[2020-05-02] MEDS: Lidocaine 5% Patch TD SCH (08:19)
[2020-05-02] MEDS: Docusate 100 MG CAP PO SCH (08:20)
[2020-05-02] MEDS: Ferrous Sulfate 325 MG TAB PO SCH ×2 (08:20→18:06)
[2020-05-02] MEDS: Sodium Bicarbonate Tab 325 MG TAB PO SCH ×3 (08:20→20:34)
--- NOTE | 2020-05-02 08:26 | PRG ---
DATE OF SERVICE: 05/02/2020 SUBJECTIVE: The patient is confused. He remains on dopamine and dobutamine drip. I am told that the dopamine could not be weaned, because he becomes hypotensive. I have also been told that the ultimate goal is to get this gentleman home on hospice. PHYSICAL EXAMINATION: VITAL SIGNS: His temperature is 98.2, pulse 71, blood pressure 123/58, O2 saturation 95% room air. HEENT: Unremarkable. NECK: No adenopathy or JVD. LUNGS: Clear. CARDIAC: S1 and S2, paced with frequent ectopy. ABDOMEN: Soft. EXTREMITIES: Trace edema. LABORATORY DATA: Sodium 140, potassium 3.2, chloride 104, CO2 of 28, BUN 64, creatinine 1.9, and glucose 110. White blood count 8, hematocrit 22.6, and platelet count 175. ASSESSMENT: 1. Cardiomyopathy. 2. . 3. Respiratory failure. 4. Renal failure. PLAN: In order to get him off the drips, we first need to stop the Coreg and the dobutamine, then we can start weaning the dopamine down. The ultimate goal is not to fix the heart failure. The goal is to get this gentleman home on hospice where he can be comfortable. Job ID: [id number]
--- NOTE | 2020-05-02 08:32 | PRG ---
DATE OF SERVICE: 05/02/2020 SUBJECTIVE: Mr. Dhillon is confused as previously. The patient has a long history of dementia. He seems comfortable, however. OBJECTIVE: VITAL SIGNS: His blood pressure is in the 90 systolic; pulse is in the 80 range, ventricular paced. LUNGS: Clear. CARDIAC: Normal S1, normal S2. EXTREMITIES: No edema. The patient is off all drips. The hope is to get him home to hospice per the family's desire according to the patient's nurse, that is why he was taken off the dobutamine and he is tolerating that okay. ASSESSMENT: End-stage heart disease. PLAN: The plan is to get him home to hospice, comfort care is the primary goal. Job ID: [id number]
--- NOTE | 2020-05-02 08:36 | RAD ---
CHEST 1 VIEW: INDICATION: History of central line placement. COMPARISON: Prior exam dated 04/28/2020. FINDINGS: Right internal jugular central venous catheter is unchanged. Dual-lead automatic implantable cardiov erter/defibrillator is similar-appearing. Cardiomegaly, pulmonary vascular congestion, and central e dematous changes persist. There is slight worsening airspace disease of the right upper lobe. There is persistent airspace disease of the left lower lobe with a small left pleural effusion. Tiny righ t pleural effusion remains. IMPRESSION: 1. Stable right-sided internal jugular central venous catheter. Worsening airspace disease of the r ight upper lobe. Persistent left basilar pleural parenchymal opacity consistent with some edema, pne umonia, and left-sided pleural effusion. 2. Cardiomegaly with pulmonary vascular congestion and perihilar airspace opacities suspicious for m ild congestive heart failure. 3. No pneumothorax. POS: BH
[2020-05-02] MEDS: Dextrose 5% in Water 1,000 ML IV SCH (09:39)
--- NOTE | 2020-05-02 12:03 | PDOC.HOSPP ---
- Subjective Encounter Date: 05/02/20 Encounter Time: 08:45 Subjective: awake, no sob is not eating much per staff is off both dobutamine and dopamine drips this am and sbp around 90's, asymptomatic now - Objective Vital Signs & Weight: Vital Signs (12 hours) Temp Pulse Resp Pulse Ox 05/02/20 11:00 98.1 F 05/02/20 07:44 98 05/02/20 07:14 82 23 H 97 05/02/20 07:00 98.2 F 05/02/20 04:55 98.3 F 05/02/20 03:00 98.5 F Weight Admit Weight 169 lb Weight 175 lb 11.335 oz Most Recent Monitor Data Heart Rate from ECG 69 NIBP 141/60 NIBP BP-Mean 87 Respiration from ECG 24 SpO2 99 I&O: 05/01/20 05/02/20 05/03/20 06:59 06:59 06:59 Intake Total 771 723 105 Output Total 5227 7268 425 [facility] -1089 -1122 -320 Result Diagrams: 05/01/20 06:45 05/02/20 03:35 Hospitalist ROS - Medication Medications: Active Medications Generic Name Dose Route Start Last Admin Trade Name Freq PRN Reason Stop Dose Admin Acetaminophen 650 mg 04/17/20 16:19 04/20/20 19:56 Tylenol PO 650 mg Q4H PRN Administration Headache/Fever/Mild Pain (1-3) Albuterol/Ipratropium 3 ml 04/22/20 13:00 05/02/20 07:14 Duoneb NEB 3 ml [id number] STEPHANIA Administration Calcitriol 0.25 mcg 04/18/20 09:00 05/02/20 08:19 Rocaltrol PO 0.25 mcg DAILY STEPHANIA Administration Docusate Sodium 100 mg 04/18/20 09:00 05/02/20 08:20 Colace PO 100 mg DAILY STEPHANIA Administration Epoetin Mateusz-epbx 7,500 unit 04/17/20 18:00 05/01/20 17:18 Retacrit SC 7,500 unit Q7D STEPHANIA Administration Ferrous Sulfate 325 mg 04/17/20 17:00 05/02/20 08:20 Feosol PO 325 mg BID-WM STEPHANIA Administration Fluoxetine HCl 10 mg 04/18/20 09:00 05/02/20 08:19 Prozac PO 10 mg DAILY STEPHANIA Administration Heparin Sodium (Porcine) 5,000 units 04/17/20 21:00 05/02/20 08:20 Heparin SC 5,000 units TID STEPHANIA Administration Dopamine HCl/Dextrose 250 mls @ 0 mls/hr 04/28/20 08:00 04/30/20 22:00 Dopamine 400 Mg/D5w 250 Ml IVPB 250 mls INF STEPHANIA Administration Protocol Titrate Dextrose/Water 1,000 mls @ 50 mls/hr 05/02/20 09:30 05/02/20 09:39 D5w IV 1,000 mls .Q20H STEPHANIA Administration Lidocaine 1 patch 04/18/20 09:00 05/02/20 08:19 Lidoderm 5% Patch TD 1 patch DAILY STEPHANIA Administration Miscellaneous Medication 1 each 04/18/20 21:00 05/01/20 22:02 Lidocaine Patch Removal TOP 1 each HS STEPHANIA Administration Ondansetron HCl 4 mg 04/17/20 16:19 04/28/20 03:05 Zofran IVP 4 mg Q6H PRN Administration Nausea/Vomiting Pantoprazole Sodium 40 mg 04/22/20 21:00 05/01/20 22:01 Protonix PO 40 mg HS STEPHANIA Administration Scopolamine 1.5 mg 04/29/20 17:00 04/29/20 16:11 Transderm Scop TD 1.5 mg Q3D STEPHANIA Administration Senna/Docusate Sodium 2 tab 04/17/20 21:00 05/02/20 08:19 Senokot S PO 2 tab BID STEPHANIA Administration Sodium Bicarbonate 650 mg 04/17/20 21:00 05/02/20 08:20 Bicarbonate, Sodium PO 650 mg TID STEPHANIA Administration - Exam General Appearance: ill appearing Eye: PERRL, anicteric sclera ENT: no oropharyngeal lesions, dry oral mucosa Neck: supple, no JVD Heart: RRR, no murmur Respiratory: no wheezes, rales, rhonchi Gastrointestinal: soft, non-tender, non-distended, normal bowel sounds Extremities: no cyanosis, no edema Neurological: cranial nerve grossly intact, no focal deficits Hosp A/P (1) Acute exacerbation of CHF (congestive heart failure) Code(s): I50.9 - HEART FAILURE, UNSPECIFIED Status: Acute Qualifiers: Heart failure type: combined systolic and diastolic Qualified Code(s): I50.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 (2) Acute respiratory failure with hypoxia Code(s): J96.01 - ACUTE RESPIRATORY FAILURE WITH HYPOXIA Status: Acute (3) SIMONA (acute kidney injury) Code(s): N17.9 - ACUTE KIDNEY FAILURE, UNSPECIFIED Status: Acute (4) Sepsis Code(s): A41.9 - SEPSIS, UNSPECIFIED ORGANISM Status: Acute Qualifiers: Sepsis type: Escherichia coli Sepsis acute organ dysfunction status: with acute organ dysfunction Severe sepsis acute organ dysfunction type: acute renal failure Acute renal failure type: with acute tubular necrosis Severe sepsis shock status: without septic shock Qualified Code(s): A41.51 - Sepsis due to Escherichia coli [E. coli]; R65.20 - Severe sepsis without septic shock; N17.0 - Acute kidney failure with tubular necrosis (5) E coli bacteremia Code(s): R78.81 - BACTEREMIA; B96.20 - UNSP ESCHERICHIA COLI THE CAUSE OF DISEASES CLASSD ELSWHR Status: Acute (6) UTI (urinary tract infection) Status: Acute Qualifiers: Urinary tract infection type: acute pyelonephritis Qualified Code(s): N10 - Acute pyelonephritis (7) Severe dehydration Code(s): E86.0 - DEHYDRATION Status: Resolved (8) Dementia Code(s): F03.90 - UNSPECIFIED DEMENTIA WITHOUT BEHAVIORAL DISTURBANCE Status: Chronic Qualifiers: Dementia type: unspecified type Dementia behavioral disturbance: without behavioral disturbance Qualified Code(s): F03.90 - Unspecified dementia without behavioral disturbance (9) Anemia Code(s): D64.9 - ANEMIA, UNSPECIFIED Status: Chronic Qualifiers: Anemia type: unspecified type Qualified Code(s): D64.9 - Anemia, unspecified (10) CKD (chronic kidney disease) Code(s): N18.9 - CHRONIC KIDNEY DISEASE, UNSPECIFIED Status: Chronic Qualifiers: Chronic kidney disease stage: stage 3 (moderate) Qualified Code(s): N18.3 - Chronic kidney disease, stage 3 (moderate) - Plan off dopamine and dobutamine drip, sbp is holding up. continue prozac, iron, nebs, lidocaine tts Creatinine is slowly trending down covid 19 is -ve encourage po intake PT/OT to mobilize as tolerated will need rehab or swing bed for dc plan prognosis guarded I have d/w daughter and yest and today over phone, they dont want a peg tube or dnar but are expecting him to make good recovery? I have conveyed current med issues, labs done and current treatment plan to family.
[2020-05-02] MEDS: Acetaminophen 325 MG TAB PO PRN (18:12)
[2020-05-02] MEDS: Scopolamine 1.5 mg/72 hour Patch TD SCH (19:06)
[2020-05-02] MEDS: Lidocaine Patch Removal 1 EACH TOP SCH (20:29)
[2020-05-02] MEDS: Pantoprazole 40 MG GRANULES PACKET PO SCH (20:34)
[2020-05-03 04:10] LABS: #Eosinphils 0.1 thou/uL (0.0-0.7); #Lymphocytes 0.4 thou/uL (1.20-3.40); #Monocytes 0.5 thou/uL (0.11-0.59); #Neutrophils 4.6 thou/uL (1.40-6.50); %Basophils 0.6 % (0.0-1.0); %Eosinophils 2.3 % (0.0-10.0); %Lymphocytes 6.2 % (21.0-51.0); %Monocytes 8.6 % (0.0-10.0); %Neutrophils 82.3 % (42.0-75.0); Hemoglobin 7.5 g/dL (14.0-18.0); Mean Corpuscular HGB CONC 32.6 g/dL (32.0-36.0); Mean Corpuscular Hemoglobin 33.1 pg (27.0-31.0); Mean Platelet Volume 8.6 fL (7.4-10.4); Platelet Count 233 thou/uL (130-400); RBC Distribution Width 13.6 % (11.5-14.5); Red Blood Cell (RBC) Count 2.27 mill/uL (4.70-6.10); White Blood Cell (WBC) Count 5.6 thou/uL (4.8-10.8)
[2020-05-03 04:31] LABS: Anion Gap 12 mmol/L (10-20); BUN (Urea Nitrogen) 58 mg/dL (8.4-25.7); BUN/Creatinine Ratio 30.05; Calc. Creatinine Clearance 33 mL/min (70-130); Calcium 8.6 mg/dL (7.8-10.44); Carbon Dioxide 27 mmol/L (23-31); Chloride 105 mmol/L (98-107); Estimated GFR-MDRD 33; Glucose 107 mg/dL (83-110); Phosphorus 3.2 mg/dL (2.3-4.7); Potassium 3.2 mmol/L (3.5-5.1); Sodium 141 mmol/L (136-145)
[2020-05-03] MEDS: Dextrose 5% in Water 1,000 ML IV SCH (05:03)
[2020-05-03] MEDS: Acetaminophen 325 MG TAB PO PRN (05:09)
[2020-05-03] MEDS ORDERED: ALPRAZolam 0.25 MG TAB PO SCH (05:15)
[2020-05-03] MEDS ORDERED: Potassium Chloride 10 MEQ in Premix Bag 1 BAG IVPB SCH (05:30)
[2020-05-03] MEDS: Ferrous Sulfate 325 MG TAB PO SCH ×2 (08:55→18:08)
[2020-05-03] MEDS ORDERED: Furosemide 20 MG/2 ML VIAL SLOW IVP SCH (09:00)
[2020-05-03] MEDS: Lidocaine 5% Patch TD SCH (09:32)
[2020-05-03] MEDS: Docusate 100 MG CAP PO SCH (09:33)
[2020-05-03] MEDS: Sodium Bicarbonate Tab 325 MG TAB PO SCH ×2 (09:34→15:54)
[2020-05-03] MEDS: Senokot S 8.6-50 MG TAB PO SCH ×2 (09:34→20:00)
[2020-05-03] MEDS: FLUoxetine HCl 10 MG CAP PO SCH (09:34)
[2020-05-03] MEDS: Heparin 5,000 UNITS/ML VIAL SC SCH ×2 (09:35→15:53)
--- NOTE | 2020-05-03 09:57 | PDOC.HOSPP ---
- Subjective Encounter Date: 05/03/20 Encounter Time: 09:30 Subjective: not oriented this am, follows verbal stimuli oral cavity is very dry and its hard to comprehend what he is saying is not in distress - Objective Vital Signs & Weight: Vital Signs (12 hours) Temp Pulse Resp BP Pulse Ox 05/03/20 08:00 98.1 F 77 18 120/70 96 05/03/20 06:05 78 16 05/03/20 03:52 97.6 F 69 16 112/57 L 100 05/02/20 23:41 98.2 F 71 16 107/57 L 100 Weight Admit Weight 169 lb Weight 175 lb 11.335 oz Most Recent Monitor Data Heart Rate from ECG 70 NIBP 105/53 NIBP BP-Mean 70 Respiration from ECG 32 SpO2 99 I&O: 05/02/20 05/03/20 05/04/20 06:59 06:59 06:59 Intake Total 723 735 Output Total 4598 1290 Balance -1122 -337 Result Diagrams: 05/03/20 04:00 05/03/20 04:00 Hospitalist ROS - Medication Medications: Active Medications Generic Name Dose Route Start Last Admin Trade Name Freq PRN Reason Stop Dose Admin Acetaminophen 650 mg 04/17/20 16:19 05/03/20 05:09 Tylenol PO 650 mg Q4H PRN Administration Headache/Fever/Mild Pain (1-3) Albuterol/Ipratropium 3 ml 04/22/20 13:00 05/03/20 06:05 Duoneb NEB 3 ml [id number] STEPHANIA Administration Calcitriol 0.25 mcg 04/18/20 09:00 05/02/20 08:19 Rocaltrol PO 0.25 mcg DAILY STEPHANIA Administration Docusate Sodium 100 mg 04/18/20 09:00 05/03/20 09:33 Colace PO 100 mg DAILY STEPHANIA Administration Epoetin Mateusz-epbx 7,500 unit 04/17/20 18:00 05/01/20 17:18 Retacrit SC 7,500 unit Q7D STEPHANIA Administration Ferrous Sulfate 325 mg 04/17/20 17:00 05/03/20 08:55 Feosol PO 325 mg BID-WM STEPHANIA Administration Fluoxetine HCl 10 mg 04/18/20 09:00 05/02/20 08:19 Prozac PO 10 mg DAILY STEPHANIA Administration Furosemide 20 mg 05/03/20 09:00 05/03/20 09:34 Lasix SLOW IVP 20 mg DAILY STEPHANIA Administration Heparin Sodium (Porcine) 5,000 units 04/17/20 21:00 05/03/20 09:35 Heparin SC 5,000 units TID STEPHANIA Administration Dopamine HCl/Dextrose 250 mls @ 0 mls/hr 04/28/20 08:00 04/30/20 22:00 Dopamine 400 Mg/D5w 250 Ml IVPB 250 mls INF STEPHANIA Administration Protocol Titrate Dextrose/Water 1,000 mls @ 50 mls/hr 05/02/20 09:30 05/03/20 05:03 D5w IV 1,000 mls .Q20H STEPHANIA Administration Lidocaine 1 patch 04/18/20 09:00 05/03/20 09:32 Lidoderm 5% Patch TD 1 patch DAILY STEPHANIA Administration Miscellaneous Medication 1 each 04/18/20 21:00 05/02/20 20:29 Lidocaine Patch Removal TOP Not Given HS STEPHANIA Ondansetron HCl 4 mg 04/17/20 16:19 04/28/20 03:05 Zofran IVP 4 mg Q6H PRN Administration Nausea/Vomiting Pantoprazole Sodium 40 mg 04/22/20 21:00 05/02/20 20:34 Protonix PO 40 mg HS STEPHANIA Administration Scopolamine 1.5 mg 04/29/20 17:00 05/02/20 19:06 Transderm Scop TD 1.5 mg Q3D STEPHANIA Administration Senna/Docusate Sodium 2 tab 04/17/20 21:00 05/03/20 09:34 Senokot S PO 2 tab BID STEPHANIA Administration Sodium Bicarbonate 650 mg 04/17/20 21:00 05/03/20 09:34 Bicarbonate, Sodium PO 650 mg TID STEPHANIA Administration - Exam General Appearance: ill appearing Eye: PERRL, anicteric sclera ENT: normocephalic atraumatic, dry oral mucosa Neck: supple, no JVD Heart: RRR, no murmur Respiratory: no wheezes, no rales, rhonchi Gastrointestinal: soft, non-tender, non-distended, normal bowel sounds Extremities: no cyanosis, no edema Neurological: cranial nerve grossly intact, no focal deficits Hosp A/P (1) Acute exacerbation of CHF (congestive heart failure) Code(s): I50.9 - HEART FAILURE, UNSPECIFIED Status: Acute Qualifiers: Heart failure type: combined systolic and diastolic Qualified Code(s): I50.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 (2) Acute respiratory failure with hypoxia Code(s): J96.01 - ACUTE RESPIRATORY FAILURE WITH HYPOXIA Status: Acute (3) SIMONA (acute kidney injury) Code(s): N17.9 - ACUTE KIDNEY FAILURE, UNSPECIFIED Status: Acute (4) Sepsis Code(s): A41.9 - SEPSIS, UNSPECIFIED ORGANISM Status: Acute Qualifiers: Sepsis type: Escherichia coli Sepsis acute organ dysfunction status: with acute organ dysfunction Severe sepsis acute organ dysfunction type: acute renal failure Acute renal failure type: with acute tubular necrosis Severe sepsis shock status: without septic shock Qualified Code(s): A41.51 - Sepsis due to Escherichia coli [E. coli]; R65.20 - Severe sepsis without septic shock; N17.0 - Acute kidney failure with tubular necrosis (5) E coli bacteremia Code(s): R78.81 - BACTEREMIA; B96.20 - UNSP ESCHERICHIA COLI THE CAUSE OF DISEASES CLASSD ELSWHR Status: Acute (6) UTI (urinary tract infection) Status: Acute Qualifiers: Urinary tract infection type: acute pyelonephritis Qualified Code(s): N10 - Acute pyelonephritis (7) Severe dehydration Code(s): E86.0 - DEHYDRATION Status: Resolved (8) Dementia Code(s): F03.90 - UNSPECIFIED DEMENTIA WITHOUT BEHAVIORAL DISTURBANCE Status: Chronic Qualifiers: Dementia type: unspecified type Dementia behavioral disturbance: without behavioral disturbance Qualified Code(s): F03.90 - Unspecified dementia without behavioral disturbance (9) Anemia Code(s): D64.9 - ANEMIA, UNSPECIFIED Status: Chronic Qualifiers: Anemia type: unspecified type Qualified Code(s): D64.9 - Anemia, unspecified (10) CKD (chronic kidney disease) Code(s): N18.9 - CHRONIC KIDNEY DISEASE, UNSPECIFIED Status: Chronic Qualifiers: Chronic kidney disease stage: stage 3 (moderate) Qualified Code(s): N18.3 - Chronic kidney disease, stage 3 (moderate) - Plan off dopamine and dobutamine drip 05/02/2020, is now in onc floor. continue prozac, iron, nebs, lidocaine tts Creatinine is slowly trending down covid 19 is -ve encourage po intake, d/w staff to feed him often at freq intervals PT/OT to mobilize as tolerated will need rehab or swing bed for dc plan prognosis guarded I have d/w daughter and yest over phone, they dont want a peg tube but are expecting him to make good recovery? I have conveyed current med issues, labs done and current treatment plan to family, will try to update them later today
--- NOTE | 2020-05-03 10:18 | PRG ---
DATE OF SERVICE: 05/03/2020 SERVICE: Renal Medicine. SUBJECTIVE: Mr. Dhillon is an 80-year-old white male, seen by the Renal Service for his acute kidney injury-prerenal on top of his chronic renal failure. His hospitalization was marred by acute respiratory distress secondary to CHF. He has previously been on dobutamine and IV dopamine. This has all been discontinued. He is now transferred to the Oncology unit. There is a tendency for the patient to be placed on hospice. The final decision will be made by his family. This morning, he voices no new complaints. He denies any chest pain or shortness of breath. OBJECTIVE: VITAL SIGNS: Blood pressure was noted at 120/70 with a heart rate of 77, respiratory rate 18, temperature 98.1, O2 saturation 96%. GENERAL: He is noted to be awake, supine, comfortable, not in distress. SKIN: Adequate turgor. HEENT: He has a pinkish conjunctivae. Anicteric sclerae. No neck mass. No carotid bruits. No JVD. CHEST: No deformities. LUNGS: Clear breath sounds. No wheezing. No crackles. HEART: Normal sinus rhythm. No murmurs, no gallops, no rubs. ABDOMEN: Globular, soft, nontender. No masses. EXTREMITIES: No edema. No deformities. MEDICATIONS: Medications of May 03, 2020, was reviewed. LABORATORY DATA: Laboratories of May 03, 2020, white count 5.6, hemoglobin 7.5. Sodium 141, potassium 3.2, chloride 105, carbon dioxide 27, BUN 58, creatinine 1.93, glucose is 107, calcium 8.6, phosphorus 3.2, albumin is 3.0. ASSESSMENT AND PLAN: 1. Acute kidney injury/chronic renal failure. Stabilizing renal function. Creatinine 1.9, is near baseline. There is no indication for any dialytic intervention with this patient. 2. Anemia-he is currently on weekly Epogen and iron supplementation. 3. Congestive heart failure, clinically stable, and improved off dopamine and dobutamine. 4. Please note, the patient is also on a low dose of furosemide at 20 mg IV daily. Overall, agree with current management. Job ID: [id number] MTDD
[2020-05-03] MEDS: Calcitriol 0.25 MCG CAP PO SCH (10:55)
--- NOTE | 2020-05-03 12:55 | PRG ---
DATE OF SERVICE: 05/03/2020 SUBJECTIVE: He has been sent to the oncology floor after being taken off the dobutamine and dopamine drip. He is surprisingly doing well. He looks comfortable. He seems demented and cannot carry on a conversation coherently. OBJECTIVE: VITAL SIGNS: Temperature is 98.1, pulse 77, respirations 18, O2 saturation 96% on room air, blood pressure 120/70. HEENT: Clear. NECK: No adenopathy or JVD. CARDIAC: S1 and S2. Regular with summation gallop. LUNGS: Clear. ABDOMEN: Soft. EXTREMITIES: Trace edema. ASSESSMENT: Heart failure - end-stage. PLAN: Hospice care - respiratory status is currently stable. No further recommendations at this time. Job ID: [id number]
--- NOTE | 2020-05-03 19:11 | PDOC.EVN ---
Event Note - Event Note Event Note: d/w Mrs.Diane Dhillon and daughter over phone. Gave them an update and the progressive decline with severe deconditioning issue as well. They prefer him coming home with [facility] in am. D/w CM for the referal to hospice for dc plan in am to home with hospice.
[2020-05-03] MEDS: Pantoprazole 40 MG GRANULES PACKET PO SCH (20:00)
[2020-05-03] MEDS: Lidocaine Patch Removal 1 EACH TOP SCH (20:01)
[2020-05-04] MEDS: Acetaminophen 325 MG TAB PO PRN ×2 (01:58→10:27)
[2020-05-04] MEDS: Dextrose 5% in Water 1,000 ML IV SCH (01:58)
[2020-05-04 05:50] LABS: Anion Gap 11 mmol/L (10-20); BUN (Urea Nitrogen) 53 mg/dL (8.4-25.7); BUN/Creatinine Ratio 26.77; Calc. Creatinine Clearance 32 mL/min (70-130); Calcium 8.3 mg/dL (7.8-10.44); Carbon Dioxide 27 mmol/L (23-31); Chloride 104 mmol/L (98-107); Estimated GFR-MDRD 33; Glucose 121 mg/dL (83-110); Phosphorus 2.7 mg/dL (2.3-4.7); Potassium 3.1 mmol/L (3.5-5.1); Sodium 139 mmol/L (136-145)
[2020-05-04] MEDS: Lidocaine 5% Patch TD SCH ×2 (08:55→09:28)
[2020-05-04] MEDS: Ferrous Sulfate 325 MG TAB PO SCH ×2 (08:55→17:30)
[2020-05-04] MEDS: Senokot S 8.6-50 MG TAB PO SCH (09:28)
[2020-05-04] MEDS: Docusate 100 MG CAP PO SCH (09:29)
[2020-05-04] MEDS: FLUoxetine HCl 10 MG CAP PO SCH (09:29)
[2020-05-04] MEDS: Calcitriol 0.25 MCG CAP PO SCH (09:45)
--- NOTE | 2020-05-04 10:41 | PRG ---
DATE OF SERVICE: 05/04/2020 SUBJECTIVE: Emre Dhillon this morning is transferred down to the Oncology unit. OBJECTIVE: VITAL SIGNS: Temperature 98, pulse 68, he is off his oxygen and his saturations are about 90%. He is off all pressors. Blood pressure 120/60. GENERAL: Clearly encephalopathic. CHEST: Bilateral rhonchi. CARDIAC: Normal S1, S2. No gallops. ABDOMEN: No masses. LABORATORY DATA: His creatinine 1.8. ASSESSMENT: Multiorgan failure, respiratory failure, congestive heart failure, renal failure, cardiomyopathy. Apparently, hospice is being called in. He is off all his pressors. At this stage, comfort care. Pulmonary will follow at a distance. Job ID: [id number]
[2020-05-04 13:25] VITALS: BMI 25.9
[2020-05-04 17:22] VITALS: BP 119/62; TEMP 98.7
--- NOTE | 2020-05-04 18:57 | DIS ---
DATE OF ADMISSION: 04/17/2020 DATE OF DISCHARGE: 05/04/2020 DISCHARGE DISPOSITION: To home with [facility]. PRIMARY DISCHARGE DIAGNOSES: Sepsis; acute kidney injury; pyelonephritis; Escherichia coli bacteremia; severe dehydration; progressive functional decline with deconditioning; chronic kidney disease, stage 3; anemia; acute respiratory failure with hypoxia; acute exacerbation of congestive heart failure with systolic dysfunction; underlying dementia; dysphagia with family not wanting PEG tube on pleasure feeding with known aspiration risk. PROCEDURES DONE DURING HOSPITALIZATION: The patient had a CT brain without contrast done showed no acute intracranial abnormality. CT lumbar spine done showed compression fracture of T12 with approximately 10% loss of height, chronic L1-L2 vertebral body compression abnormalities with prior stable vertebroplasty change at L2. Bilateral pleural effusion and chronic right-sided hydronephrosis were incidentally seen. 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 Abdominal and pelvic CAT scan, stone protocol done showed no interval change in degree of moderate right hydronephrosis suggestive of partial obstruction of right ureter. Large amount of colonic bowel gas, especially throughout the redundant sigmoid colon. Increase in volume of now moderate-size right pleural effusion and large left pleural effusion. History of left nephrectomy. Rectal distention with large volume of liquid stool. Right ureteral diversion emptying into right lower quadrant ostomy. Chest x-ray done on the day of admission showed pulmonary vascular congestion with bilateral pleural effusions. No pneumothorax was seen. Echo with 2D Doppler showed an ejection fraction of 30% to 35%, moderate mitral regurgitation, moderate aortic regurgitation, moderate tricuspid regurgitation, moderately elevated pulmonary artery pressure. Blood cultures x2 grew E coli sensitive to ampicillin, sulbactam, cefoxitin, gentamicin, meropenem, Zosyn, tobramycin, and resistant to all other antibiotics. Discharge H and H of 7.5 and 23, platelet count 233 with 82% neutrophils. White count of 5.6. MCV 102. Discharge BUN and creatinine are 53 and 1.9. Admitting BUN and creatinine were 93 and 4.1. Serum bicarb was 17 on the day of admission. BNP was 1097. COVID-19 PCR done on 04/17/2020, was not detected. DISCHARGE MEDICATIONS: 1. Calcitriol 0.25 mcg p.o. daily. 2. Colace 100 mg p.o. daily. 3. Fluoxetine 10 mg p.o. daily. 4. Sodium bicarbonate 650 mg twice daily. 5. Tylenol p.r.n. 6. Ferrous sulfate 325 mg p.o. twice daily. 7. Lidocaine 5% transdermal patch daily. 8. Protonix 40 mg p.o. at bedtime. ALLERGIES: NO KNOWN DRUG ALLERGIES. INPATIENT CONSULTS: Dr. Hill/Moises for Cardiology. Dr. Schwartz for Nephrology. Dr. Flores for Pulmonology. Dr. Arroyo for Infectious Disease. DISCHARGE PLAN: The patient is going into home hospice with [facility]. He needs to follow up with his hospice physician in 1 week. BRIEF COURSE DURING HOSPITALIZATION: The patient initially got admitted on the 17 of April for sepsis, severe dehydration, acute kidney injury, metabolic acidosis, and acute encephalopathy. He was initially admitted to medical floor, then upgraded to IMCU and Critical Care. The patient's blood cultures grew E coli 2/2. The patient had acute kidney injury with solitary kidney and current pyelonephritis as well. He has had consultation with Dr. Schwartz for Nephrology and Dr. Arroyo for Infectious Disease. The patient's saturations dropped and had hypotension as well. He had known history of CHF and the patient was moved to ICU. He was placed on dobutamine and dopamine infusions and has had gentle diuresis done. He was on high-flow oxygen. His COVID-19 PCR was negative. His oxygen was completely weaned off. The patient also had complete weaning off dopamine and dobutamine. He has had consultations with Dr. Flores for Pulmonology, and Dr. Hill and Dr. De Leon for Cardiology. His renal function is stabilizing as well with discharge creatinine of 1.9, likely his baseline. Mr. Dhillon has had progressive functional decline and also developed dysphagia during his stay here. The family did not want a PEG tube. This was in view of patient's wishes not to have a feeding tube. In view of progressive decline and patient not wanting a PEG tube, he was placed on pureed diet with aspiration risk. His oral intake has also been gradually declining. In view of progressive decline and in view of all of the above and multiple medical issues, the family have opted for [facility] at home. His and daughter will be helping him when he goes home. He will be shortly discharged home, when Hospice sets up hospital bed and other requirements. His overall prognosis is [id number]. Please note, I have seen and examined the patient on the day of discharge. Job ID: [id number]
== END 2020-05-04 20:25 | disposition hospice, home (50) | DRG 871 ==
LOC: ERS 10:21 → SURG A 16:09 → CCU 04-21 00:19 → 2SE 04-25 23:48 → CCU 04-28 04:06 → ONC 05-02 14:59
PROVIDERS: ADMIT Internal Medicine; ATTEND Internal Medicine
PROC: 3E033XZ Introduction of Vasopressor into Peripheral Vein, Percutaneous Approach (ICD-10-PCS; principal; 2020-05-03)
DX: A41.51 Sepsis due to Escherichia coli [E. coli] (principal); J96.01 Acute respiratory failure with hypoxia; I50.23 Acute on chronic systolic (congestive) heart failure; G93.41 Metabolic encephalopathy; N17.0 Acute kidney failure with tubular necrosis; J69.0 Pneumonitis due to inhalation of food and vomit; R57.0 Cardiogenic shock; N13.6 Pyonephrosis; I13.0 Hypertensive heart and chronic kidney disease with heart failure and stage 1 through stage 4 chronic kidney disease, or unspecified chronic kidney disease; E87.2 Acidosis; I48.20 Chronic atrial fibrillation, unspecified; S22.089A Unspecified fracture of T11-T12 vertebra, initial encounter for closed fracture; Z16.12 Extended spectrum beta lactamase (ESBL) resistance; E87.0 Hyperosmolality and hypernatremia; I42.9 Cardiomyopathy, unspecified; Z20.828 Contact with and (suspected) exposure to other viral communicable diseases; Z66 Do not resuscitate; E86.0 Dehydration; N18.3 Chronic kidney disease, stage 3 (moderate); D63.1 Anemia in chronic kidney disease; F03.90 Unspecified dementia, unspecified severity, without behavioral disturbance, psychotic disturbance, mood disturbance, and anxiety; R13.10 Dysphagia, unspecified; I08.3 Combined rheumatic disorders of mitral, aortic and tricuspid valves; R29.6 Repeated falls; J44.9 Chronic obstructive pulmonary disease, unspecified; W19.XXXA Unspecified fall, initial encounter; M84.48XD Pathological fracture, other site, subsequent encounter for fracture with routine healing; R65.20 Severe sepsis without septic shock; R63.0 Anorexia; K21.9 Gastro-esophageal reflux disease without esophagitis; Z85.54 Personal history of malignant neoplasm of ureter; Z87.891 Personal history of nicotine dependence; Z90.49 Acquired absence of other specified parts of digestive tract; Z79.899 Other long term (current) drug therapy; Z79.01 Long term (current) use of anticoagulants; Z95.0 Presence of cardiac pacemaker; Z68.25 Body mass index [BMI] 25.0-25.9, adult; Z90.5 Acquired absence of kidney
CPT/HCPCS: 36415; 36416; 70450; 71045; 72131; 74018; 74176; 80053; 80069; 81003; 81015; 82550; 82553; 82805; 83605; 83690; 83735; 83880; 84484; 85025; 85379; 86769; 87040; 87077; 87149; 87186; 93005; 93010; 93306; 96361; 96365; 96375; J0696; J1250; J1265; J1644; J1940; J2185; J2270; J2405; J2920; J3010; J3370; J3480; J3490; J7030; J7620; L0639; P9047; Q5105; U0002